=== PATIENT | female | born 1960 | race Caucasian/White ===

== ENCOUNTER 2020-06-21 10:15 | Outpatient (CLI) | payer OTHER, SELFPAY ==
--- NOTE | ~2020-06-21 | CT_ITS ---
EXAMINATION: CT abdomen pelvis wo con DATE: 06/21/2020 10:33 INDICATION: Hematuria. Left flank pain. Nausea. TECHNIQUE: Computed tomography (CT) of the abdomen and pelvis was performed without intravenous contr ast. Automated exposure control and iterative reconstruction technique were employed. The dose-length product was 424.62 mGy-cm. COMPARISON: None. FINDINGS: The visualized portions of the lung bases demonstrate mild atelectasis. Calcified bilateral lung nodules are consistent with old granulomatous disease. No pleural effusion. The heart size is n ormal. No pericardial effusion. The liver and spleen are normal. The gallbladder is absent. The pancr eas, adrenal glands, and kidneys are normal. There is no urolithiasis. There are no dilated loops of bowel. The appendix is normal. There is a supraumbilical ventral hernia containing fat. There are no pathologically enlarged lymph nodes. There is no free intraperitoneal fluid. There is a benign bone i sland in left ilium. There is thoracolumbar levoscoliosis. There is severe lumbar spondylosis. IMPRESSION: 1. Supraumbilical ventral hernia containing fat. Reviewed, dictated and finalized at location B.
== END 2020-06-21 10:16 | disposition home or self-care (01) ==
LOC: ANHIMG 10:16
PROVIDERS: PCP Nurse Practitioner Family; Visit Provider Nurse Practitioner Family
DX: R31.9 Hematuria, unspecified (principal); R10.9 Unspecified abdominal pain; R11.0 Nausea; K43.9 Ventral hernia without obstruction or gangrene
CPT/HCPCS: 74176

== ENCOUNTER 2024-01-16 15:33 | Emergency (ER) | payer OTHER, SELFPAY ==
--- NOTE | ~2024-01-16 | XR_ITS ---
EXAMINATION: XR lumbar spine 2-3V DATE: 01/16/2024 16:52 INDICATION: Low back injury. TECHNIQUE: 3 views of lumbar spine were obtained. COMPARISON: CT abdomen and pelvis 06/21/2020 FINDINGS: There is 16 degrees levoscoliosis of thoracolumbar spine. Vertebral body heights are normal . There is mildly decreased disc height at L3-L4 and L4-5 and moderately decreased disc height at L5- S1. There are endplate osteophytes at all levels. There is multilevel severe facet joint osteoarthrit is. IMPRESSION: 1. Moderate lumbar spondylosis. 2. Thoracolumbar levoscoliosis. Reviewed, dictated and finalized at location E.
--- NOTE | ~2024-01-16 | CT_ITS ---
EXAMINATION: CT cervical spine wo con DATE: 01/16/2024 16:44 INDICATION: Neck pain. Fall. TECHNIQUE: Computed tomography (CT) of the cervical spine was performed without intravenous contrast. Automated exposure control and iterative reconstruction technique were employed. The dose-length pro duct was 147.10 mGy-cm. COMPARISON: CT cervical spine 08/12/2005 FINDINGS: There is a small right mastoid effusion. There is 3 degrees levocurvature of cervical spine . There is kyphosis of cervical spine. Vertebral heights are normal. There is mildly decreased disc h eight at C4-C5 and moderately decreased disc height at C5-C6 and C6-C7. The following disc levels are specifically discussed: C2-C3: There is mild bilateral uncovertebral joint osteoarthritis. There is moderate bilateral facet joint osteoarthritis. There is no neural foraminal stenosis. There is no central canal stenosis. C3-C4: There is mild bilateral uncovertebral joint osteoarthritis. There is mild right and moderate l eft facet joint osteoarthritis. There is no neural foraminal stenosis. There is no central canal sten osis. C4-C5: There is mild bilateral uncovertebral joint osteoarthritis. There is mild bilateral facet join t osteoarthritis. There is no neural foraminal stenosis. There is no central canal stenosis. C5-C6: There is severe right and mild left uncovertebral joint osteoarthritis. There is mild bilatera l facet joint osteoarthritis. There is mild right neural foraminal stenosis. There is mild central ca nal stenosis. C6-C7: There is moderate and mild left uncovertebral joint osteoarthritis. There is moderate right an d mild left facet joint osteoarthritis. There is no neural foraminal stenosis. There is moderate cent ral canal stenosis. C7-T1: There is no uncovertebral joint osteoarthritis. There is moderate right and severe left facet joint osteoarthritis. There is mild bilateral neural foraminal stenosis. There is no central canal st enosis. IMPRESSION: 1. No fracture. 2. Moderate cervical spondylosis. Reviewed, dictated and finalized at location E.
[2024-01-16 15:31] VITALS: BP 155/88; PULSE 105; RESP 18; TEMP 36.6; O2SAT 100
--- NOTE | 2024-01-16 15:50 | ED.GENADULT ---
HPI - General Adult General Chief complaint: Urogenital-Female Stated complaint: uti Time Seen by Provider: 01/16/24 15:45 History of Present Illness HPI narrative: 63 YEARS OLD WHITE FEMALE CAME FROM HOME BY AMBULANCE COMPLAINING OF INCREASED FREQUENCY OF URINATION AND FOUL SMELL OF URINE OVER THE LAST 2 DAYS. PATIENT ALSO COMPLAINING OF NECK PAIN SINCE SHE HAD A FALL OUT OF THE AMBULANCE 1 WEEK AGO. ALSO LOWER BACK PAIN. SHE DENIES ANY FEVER, CHILLS, NAUSEA, VOMITING, ABDOMINAL PAIN OR CHEST PAIN OR SHORTNESS OF BREATH. Related Data Allergies Allergy/AdvReac Type Severity Reaction Status Date / Time codeine Allergy Unknown HIVES, Verified 10/26/18 13:11 VOMITING Review of Systems Review of Systems: All systems reviewed & are unremarkable except as noted in HPI and below Exam Narrative: GENERAL APPEARANCE: WELL-DEVELOPED, WELL-NOURISHED SKIN: NORMAL COLOR HEAD: NORMOCEPHALIC, NONTRAUMATIC, STATUS POST BRAIN SURGERY, SURGICAL SCAR OF THE SKULL IS CLEAN AND DRY EYES: CLEAR CONJUNCTIVA ENT: OROPHARYNX NORMAL, EARS NORMAL, NOSE NORMAL NECK: SUPPLE, SLIGHT DIFFUSE TENDERNESS OF THE NECK BILATERALLY MAINLY ON THE RIGHT SIDE, NO BRUISES OR SWELLING OR RASH CHEST AND RESPIRATORY: AIRWAY PATENT, NO RESPIRATORY DISTRESS, NO ACCESSORY MUSCLE USE HEART: REGULAR RATE/RHYTHM ABDOMEN: SOFT, NONTENDER, NO ORGANOMEGALY, QUIET BOWEL SOUNDS VASCULAR: NORMAL PERIPHERAL PULSES, NORMAL CAPILLARY REFILL. MUSCULOSKELETAL: NORMAL RANGE OF MOTION, NONTENDER BACK NEUROLOGIC: ALERT AND ORIENTED ?3, BUSINESS TECHNOLOGY ANALYST IS NORMAL TESTED, NO GROSS MOTOR DEFICIT Course Vital Signs Vital signs: Vital Signs Temperature 36.6 C 01/16/24 15:31 Pulse Rate 105 H 01/16/24 15:31 Respiratory Rate 18 01/16/24 15:31 Blood Pressure 155/88 H 01/16/24 15:31 Pulse Oximetry 100 01/16/24 15:31 Oxygen Delivery Room Air 01/16/24 15:31 Temperature 36.6 C 01/16/24 15:31 Pulse Rate 105 H 01/16/24 15:31 Respiratory Rate 18 01/16/24 15:31 Blood Pressure 155/88 H 01/16/24 15:31 Pulse Oximetry 100 01/16/24 15:31 Oxygen Delivery Room Air 01/16/24 15:31 Medical Decision Making [facility] Narrative Medical decision making narrative: PATIENT CAME TO EMERGENCY ROOM BY AMBULANCE FROM HOME COMPLAINING OF FREQUENT URINATION AND NECK PAIN. PHYSICAL EXAMINATION ABOVE DIFFERENTIAL DIAGNOSIS URINARY TRACT INFECTION, CERVICAL SPRAIN/STRAIN VERSUS FRACTURE, LOWER BACK CONTUSION VERSUS FRACTURE WORKUP TODAY SHOWED URINARY TRACT INFECTION, CERVICAL SPINE AND X-RAY LUMBAR SPINE SHOWED NO ACUTE ABNORMALITIES. PATIENT RECEIVED 1 TABLET OF CIPRO 500 MG P.O. PRIOR TO DISCHARGE, DISCHARGED ON CIPRO 500 B.I.D. FOR 7 DAYS. Differential Diagnosis Differential Diagnosis: ABOVE Vital Signs Vital Signs: Vital Signs Temperature 36.6 C 01/16/24 15:31 Pulse Rate 105 H 01/16/24 15:31 Respiratory Rate 18 01/16/24 15:31 Blood Pressure 155/88 H 01/16/24 15:31 Pulse Oximetry 100 01/16/24 15:31 Oxygen Delivery Room Air 01/16/24 15:31 Temperature 36.6 C 01/16/24 15:31 Pulse Rate 105 H 01/16/24 15:31 Respiratory Rate 18 01/16/24 15:31 Blood Pressure 155/88 H 01/16/24 15:31 Pulse Oximetry 100 01/16/24 15:31 Oxygen Delivery Room Air 01/16/24 15:31 Lab Data Labs: Lab Results 01/16/24 Range/Units 16:23 Urine Color Dark yellow (Yellow) Urine Appearance Turbid H (Clear) Urine pH 5.5 (5.0-9.0) Ur Specific [place] 1.033 (1.001-1.035) Urine Protein 2+ H (Negative) mg/dL Urine Glucose (UA) Negative (Negative) mg/dL Urine Ketones Trace H (Negative) mg/dL Ur Blood (Man) 3+ H (Negative) Urine Nitrate Neg
[2024-01-16 16:46] LABS: Appearance Urine Turbid (Clear); Bacteria Urine None Seen /hpf; Bilirubin Urine 2+ (Negative); Blood Urine 3+ (Negative); Color Urine Dark Yellow (Yellow); Glucose Urine UA Negative (Negative); Ketones Urine Trace mg/dL (Negative); Leukocyte Esterase Ur 2+ LEU/UL (Negative); Need Manual Microscopic Reviewed; Nitrate Urine Negative (Negative); Non Pathogenic Casts 0-2; Protein Urine 2+ mg/dL (Negative); RBC Urine >100 /hpf (0-2); Specific Grav Ur 1.033 (1.001-1.035); Squamous Epithelial Cell Urine None seen /hpf (Few); WBC Urine >100 /hpf; pH Urine 5.5 (5.0-9.0)
[2024-01-16 16:48] LABS: Add Urine Microscopic? YES
[2024-01-16] MEDS: CIPROFLOXACIN 500 MG TAB PO (18:28)
[2024-01-16 19:02] VITALS: BP 149/98; PULSE 100; RESP 17; O2SAT 100
== END 2024-01-17 03:12 | disposition home or self-care (01) ==
PROVIDERS: Emergency Provider Emergency Medicine; PCP Nurse Practitioner Family
DX: N39.0 Urinary tract infection, site not specified (principal); M47.812 Spondylosis without myelopathy or radiculopathy, cervical region; M47.816 Spondylosis without myelopathy or radiculopathy, lumbar region
CPT/HCPCS: 72100; 72125; 81001; 87077; 87086; 87088; 87186; 99284; A9270

== ENCOUNTER 2024-01-22 05:27 | Emergency (ER) | payer OTHER, SELFPAY ==
[2024-01-22] VITALS (11 sets, daily range): BP systolic 139–191; BP diastolic 90–113; PULSE 84–102; RESP 17–35; TEMP 36.4; O2SAT 94–98
--- NOTE | 2024-01-22 05:45 | ECG_ITS ---
Measurements Intervals [place] Rate: 103 P: 69 MA: 156 QRS: -30 QRSD: 98 T: 87 QT: 360 QTc: 473 Interpretive Statements SINUS TACHYCARDIA VENTRICULAR PREMATURE COMPLEX AND FREQUENT ATRIAL PREMATURE COMPLEXES LEFT VENTRICULAR HYPERTROPHY WITH ST-T CHANGE POOR R WAVE PROGRESSION, CONSIDER ANTERIOR INFARCT CONSIDER INFERIOR INFARCT, AGE INDETERMINATE ST-T WAVE ABNORMALITY IN HIGH LATERAL LEADS- CONSIDER ISCHEMIA BASELINE WANDER- I, II, III, AVF ABNORMAL ECG NO PREVIOUS ECG AVAILABLE FOR COMPARISON Electronically Signed On 01-22-2024 8:15:42 CDT by Leonel Estrada D.O.
--- NOTE | 2024-01-22 05:45 | ED.GENADULT ---
HPI - General Adult General Chief complaint: Nausea/Vomiting/Diarrhea <Alexis Bonds MD - Last Filed: 01/31/24 07:38> Stated complaint: N/V <Alexis Bonds MD - Last Filed: 01/31/24 07:38> Time Seen by Provider: 01/22/24 05:35 <Alexis Bonds MD - Last Filed: 01/31/24 07:38> History of Present Illness HPI narrative: Patient is a 63-year-old female who presents to the emergency department this morning complaining of nausea and vomiting. Patient states symptoms started approximately 2 hours prior to arrival Around 4:30 a.m. this morning. Denies any bloody or bilious emesis. Patient admits to mild abdominal cramping And diarrhea but denies any constipation, melena or hematochezia. was currently present at bedside states that yesterday he had to change her 6 times, as she continued to have loose stools. stools are not completely liquid, admits that she does have some formed stools mixed with the watery stool. Patient went to bed with no nausea or vomiting and woke up around 4:30 a.m. with multiple vomiting episodes. Has been admits that he has been sick with some upper respiratory virus but he denies any similar symptoms at home including diarrhea. Diarrhea started approximately 2-3 days ago. Has been also states that the patient has not had an appetite for the past 2 days and has not had much to eat. Patient denies any fevers or chills at home. She has got any chest pain or shortness of breath. There are no other modifying, alleviating, or precipitating factors at this time. <Alexis Bonds MD - Last Filed: 01/31/24 07:38> Related Data Home medications: Home Medications Medication Instructions Recorded Confirmed acetaminophen 325 mg tablet 650 mg PO Q4H PRN Pain (Scale 12/19/23 12/19/23 Score 1-3) albuterol sulfate 90 mcg/actuation 2 puff inhalation Q6H PRN Wheezing 12/19/23 12/19/23 aerosol inhaler apixaban 5 mg tablet 5 mg PO BID 12/19/23 12/19/23 aspirin 81 mg tablet,delayed 81 mg PO DAILY 12/19/23 12/19/23 release atorvastatin 40 mg tablet 40 mg PO HS 12/19/23 12/19/23 calcium carbonate 600 mg-vitamin 1 tablet PO BID 12/19/23 12/19/23 D3 10 mcg (400 unit) tablet (Calcium with Vitamin D) cholecalciferol (vitamin D3) 25 25 mcg PO TID 12/19/23 12/19/23 mcg (1,000 unit) tablet ferrous sulfate 325 mg (65 mg 325 mg PO QACBREAK 12/19/23 12/19/23 iron) tablet gabapentin 250 mg/5 mL oral 100 mg PO TID 12/19/23 12/19/23 solution megestrol 400 mg/10 mL (40 mg/mL) 200 mg PO DAILY 12/19/23 12/19/23 oral suspension melatonin 3 mg tablet 3 mg PO HS 12/19/23 12/19/23 metformin 500 mg tablet 500 mg PO DAILY 12/19/23 12/19/23 metoprolol succinate 25 mg 25 mg PO DAILY 12/19/23 12/19/23 tablet,extended release 24 hr omeprazole 20 mg capsule,delayed 20 mg PO DAILY 12/19/23 12/19/23 release oxycodone 5 mg capsule 5 mg PO Q6H PRN Pain (Scale Score 12/19/23 12/19/23 4-6) polyethylene glycol 3350 17 gram 17 g PO DAILY 12/19/23 12/19/23 oral powder packet sennosides 8.6 mg tablet 8.6 mg PO DAILY 12/19/23 12/19/23 <Alexis Bonds MD - Last Filed: 01/31/24 07:38> Allergies/adverse reactions: Allergies Allergy/AdvReac Type Severity Reaction Status Date / Time nitrofurantoin Allergy Rash Verified 12/19/23 13:21 [From Macrobid] strawberry Allergy Hives Verified 12/20/23 11:44 codeine AdvReac Nausea and Verified 12/19/23 13:21 Vomiting Sulfa (Sulfonamide AdvReac Other Verified 12/19/23 13:21 Antibiotics) <Alexis Bonds MD - Last Filed: 01/31/24 07:38> Review of Systems Review of Systems: All systems are reviewed and are negative unless stated otherwise in the HPI. <Alexis Bonds MD - Last Filed: 01/31/24 07:38> PMFSH Social History Social History: Social History Smoking status: Never smoker Second hand tobacco smoke exposure: No
[2024-01-22] MEDS: ONDANSETRON INJ 4 MG/2 ML VIAL IV PUSH ×2 (05:51→07:27)
--- NOTE | 2024-01-22 06:10 | PC.NURSE ---
Pt vomiting again. ERP notified and reglan ordered.
[2024-01-22 06:16] LABS: Basophils Absolute Auto 0.1 K/mm3 (0.0-0.1); Basophils Percent Auto 0.9 % (0.2-1.2); Eosinophils Absolute Auto 0.3 K/mm3 (0-0.3); Hematocrit 40.7 % (37.0-47.0); Hemoglobin 12.7 g/dL (12.0-15.0); Immature Granulocyte Absolute 0.02 K/mm3 (0.00-0.031); Immature Granulocyte Percent A 0.3 % (0-0.5); Lymphocytes Absolute Auto 2.37 K/mm3 (0.9-3.2); Lymphocytes Percent Auto 33.8 % (18.3-44.2); Mean Corpuscular HGB Conc 31.2 g/dl (32-36); Mean Corpuscular Volume 86.6 fl (80-100); Mean Platelet Volume 12.9 fl (7.4-10.4); Monocytes Absolute Auto 0.6 K/mm3 (0.1-0.6); Monocytes Percent Auto 8.3 % (2.6-8.5); Neutrophils Absolute Auto 3.7 K/mm3 (1.3-6.7); Neutrophils Percent Auto 52.7 % (45.5-73.1); Platelet Count Result 195 k/mm3 (150-375); Red Cell Distribution Width 13.8 % (11.5-14.5)
[2024-01-22] MEDS: METOCLOPRAMIDE HCL INJ 10 MG/2 ML VIAL IV PUSH (06:24)
[2024-01-22 06:25] LABS: Alanine Aminotransferase 42 U/L (6-35); Albumin Level 3.5 g/dL (3.5-5.1); Alkaline Phosphatase 110 U/L (38-126); Anion Gap 7 mmol/L (8-16); Aspartate Amino Transferase 40 U/L (14-36); Bilirubin,Total 0.5 mg/dL (0.2-1.3); Blood Urea Nitrogen 15 mg/dL (7-17); Calcium 9.7 mg/dL (8.4-10.2); Carbon Dioxide 21 mmol/L (22-30); Chloride 111 mmol/L (98-107); Estimated CRCL calculation 71 ml/min; Estimated Glomerular Filt Rate > 60; Glucose 122 mg/dL (65-110); Lipase 155 U/L (23-300); Potassium 2.8 mmol/L (3.4-5.0); Sodium 139 mmol/L (137-145)
[2024-01-22 07:06] LABS: Influenza A QL RT-PCR Negative (Negative); Influenza B QL RT-PCR Negative (Negative); RSV RNA, RT-PCR Negative (Negative); SARS-CoV-2 RNA PCR Negative (Negative)
--- NOTE | 2024-01-22 07:12 | PC.NURSE ---
Bedside report to ELVER Cool. Still awaiting K+ from pharmacy. Concerned with giving pt PO K d/t continued vomiting despite antiemetics. Aware of need for urine sample but pt has had two attempts on bedpan with contaminated stool specimen. Erp notified.
[2024-01-22] MEDS: SODIUM CHLORIDE 0.9% IV 1,000 ML 999 ML IV CONT (07:28)
[2024-01-22] MEDS: KCL 20 MEQ/SW 100 ML 100 ML 50 MEQ IVPB (07:28)
--- NOTE | 2024-01-22 07:42 | PC.NURSE ---
notified pt vomiting, unable to take PO Potassium.
[2024-01-22 07:49] LABS: Magnesium 1.5 mg/dL (1.6-2.3)
[2024-01-22 08:40] LABS: Bacteria Urine None Seen /hpf; Non Pathogenic Casts 0-2; RBC Urine >100 /hpf (0-2); Squamous Epithelial Cell Urine None Seen /hpf (Few); WBC Urine 0-5 /hpf (0-3)
[2024-01-22 08:46] LABS: Appearance Urine Clear (Clear); Bilirubin Urine Negative (Negative); Blood Urine 3+ (Negative); Color Urine Orange (Yellow); Glucose Urine UA Negative (Negative); Ketones Urine Trace mg/dL (Negative); Leukocyte Esterase Ur Negative LEU/UL (Negative); Nitrate Urine Negative (Negative); Protein Urine Negative (Negative); Specific Grav Ur 1.011 (1.001-1.035); Urobilinogen Urine 0.2 mg/dL (<2.0); pH Urine 5.5 (5.0-9.0)
[2024-01-22 08:47] LABS: Add Urine Microscopic? YES
[2024-01-22] MEDS: POTASSIUM CHLORIDE 20 MEQ PACKET (FOR LIQUID) 40 MEQ PO (09:00)
== END 2024-01-22 10:36 | disposition home or self-care (01) ==
PROVIDERS: Emergency Provider Emergency Medicine; PCP Nurse Practitioner Family
DX: K52.9 Noninfective gastroenteritis and colitis, unspecified (principal); E87.6 Hypokalemia; Z20.822 Contact with and (suspected) exposure to COVID-19; Z79.84 Long term (current) use of oral hypoglycemic drugs; R00.0 Tachycardia, unspecified; I49.3 Ventricular premature depolarization; I49.1 Atrial premature depolarization; I51.7 Cardiomegaly; R94.31 Abnormal electrocardiogram [ECG] [EKG]
CPT/HCPCS: 36415; 80053; 83605; 83690; 83735; 85025; 87637; 93005; 96365; 96366; 96375; 96376; 99284; A9270; J2405; J2765; J3480; J7030

== ENCOUNTER 2024-02-21 22:01 | Emergency (ER) | payer OTHER, SELFPAY ==
--- NOTE | ~2024-02-21 | XR_ITS ---
EXAMINATION: XR chest 1V portable DATE: 02/21/2024 22:48 INDICATION: Chest pain. Shortness of breath. TECHNIQUE: A single frontal view of the chest was obtained. COMPARISON: None. FINDINGS: There are airspace opacities in right lower lung zone. No pleural effusion or pneumothorax. The heart size is normal. IMPRESSION: 1. Airspace opacities in right lower lung zone, consistent with atelectasis versus pneumonia. Reviewed, dictated and finalized at location E. IMPRESSION: 1. Airspace opacities in right lower lung zone, consistent with atelectasis moriah tejas pneumonia.
[2024-02-21 21:56] VITALS: BP 137/96; PULSE 118; RESP 23; TEMP 36.2; O2SAT 93
--- NOTE | 2024-02-21 22:13 | ECG_ITS ---
SEE SCANNED COPY FOR CONFIRMED REPORT. MTDD
[2024-02-21 22:16] VITALS: PULSE 90
[2024-02-21 22:58] VITALS: PULSE 78; RESP 19
[2024-02-21] MEDS: diphenhydrAMINE HCl INJ 50 MG/ML VIAL 25 MG IV PUSH (23:19)
[2024-02-21] MEDS: METOCLOPRAMIDE HCL INJ 10 MG/2 ML VIAL IV PUSH (23:19)
[2024-02-21 23:45] LABS: Basophils Absolute Auto 0.1 K/mm3 (0.0-0.1); Basophils Percent Auto 0.7 % (0.2-1.2); Eosinophils Absolute Auto 0.1 K/mm3 (0-0.3); Eosinophils Percent Auto 1.2 % (0-4.4); Hematocrit 43.8 % (37.0-47.0); Hemoglobin 14.1 g/dL (12.0-15.0); Immature Granulocyte Absolute 0.02 K/mm3 (0.00-0.031); Immature Granulocyte Percent A 0.3 % (0-0.5); Lymphocytes Percent Auto 22.3 % (18.3-44.2); Mean Corpuscular HGB Conc 32.2 g/dl (32-36); Mean Corpuscular Volume 83.9 fl (80-100); Mean Platelet Volume 12.1 fl (7.4-10.4); Monocytes Absolute Auto 0.4 K/mm3 (0.1-0.6); Monocytes Percent Auto 5.2 % (2.6-8.5); Neutrophils Absolute Auto 4.7 K/mm3 (1.3-6.7); Neutrophils Percent Auto 70.3 % (45.5-73.1); Platelet Count Result 233 k/mm3 (150-375); Red Blood Count 5.22 M/mm3 (4.2-5.4); Red Cell Distribution Width 14.7 % (11.5-14.5); White Blood Count 6.7 K/mm3 (4.5-10.0)
--- NOTE | 2024-02-21 23:49 | PC.NURSE ---
assumed care of pt from Debi RAYA at this time. pt resting in bed with by side. this rn at bedside to start medications.
[2024-02-21] MEDS: PANTOPRAZOLE SODIUM IV 40 MG VIAL IV PUSH (23:55)
[2024-02-21 23:57] VITALS: O2SAT 88; O2SAT 98
--- NOTE | 2024-02-21 23:57 | PC.NURSE ---
Pt satting 88% on RA when this RN entered room. This RN placed pt on 2L NC. Pt now satting 99%. EDP made aware. ABX and protonix given at this time.
[2024-02-21 23:59] LABS: INR 1.5; Prothrombin Time 18.6 Seconds (11.1-14.7)
[2024-02-22] LABS: Partial Thromboplastin Time 32.9 Seconds (22.3-36.8)
[2024-02-22 00:01] LABS: Alanine Aminotransferase 12 U/L (6-35); Albumin Level 3.8 g/dL (3.5-5.1); Alkaline Phosphatase 85 U/L (38-126); Anion Gap 9 mmol/L (4-12); Aspartate Amino Transferase 22 U/L (14-36); Bilirubin,Total 0.7 mg/dL (0.2-1.3); Blood Urea Nitrogen 11 mg/dL (7-17); Calcium 9.8 mg/dL (8.4-10.2); Carbon Dioxide 28 mmol/L (22-30); Chloride 104 mmol/L (98-107); Estimated CRCL calculation 83 ml/min; Estimated Glomerular Filt Rate > 60; Glucose 167 mg/dL (65-110); Lipase 89 U/L (23-300); Potassium 2.6 mmol/L (3.4-5.0); Sodium 141 mmol/L (137-145)
[2024-02-22 00:08] LABS: Troponin I < 0.012 ng/mL (0.000-0.034)
[2024-02-22] MEDS: POTASSIUM CHLORIDE INJ 40 MEQ in SODIUM CHLORIDE 0.9% IV 500 ML 130 MEQ IVPB (00:15)
[2024-02-22 00:18] VITALS: BP 138/87; PULSE 84; RESP 19; O2SAT 99
[2024-02-22 01:01] VITALS: BP 149/88; PULSE 82; RESP 19; O2SAT 100
[2024-02-22] MEDS: POTASSIUM CHLORIDE 20 MEQ ER TABLET 40 MEQ PO (01:12)
[2024-02-22 01:16] VITALS: BP 157/96; PULSE 94; RESP 13; O2SAT 99
--- NOTE | 2024-02-22 01:30 | PC.NURSE ---
gurdeep contacted to draw pt 3 hour troponin at this time.
[2024-02-22] MEDS: LOPERAMIDE HCL 2 MG CAPSULE 4 MG PO (02:14)
[2024-02-22] MEDS: SODIUM CHLORIDE 0.9% IV 250 ML 999 ML IV CONT (02:24)
[2024-02-22 02:58] LABS: Troponin I < 0.012 ng/mL (0.000-0.034)
[2024-02-22 03:10] VITALS: BP 161/96; PULSE 77; RESP 14; O2SAT 100
[2024-02-22 03:16] VITALS: BP 152/90; PULSE 96; RESP 16; O2SAT 100
[2024-02-22 03:20] VITALS: BP 152/90; PULSE 77; RESP 16; O2SAT 94
--- NOTE | 2024-02-22 03:30 | ED.NAVMDI ---
HPI - Nausea/Vomiting/Diarrhea General Chief complaint: Nausea/Vomiting/Diarrhea Stated complaint: N/V X 30 MINUTES Time Seen by Provider: 02/21/24 22:14 History of Present Illness HPI Narrative: Patient reporting nausea vomiting twice at home, she had eaten dinner which was some sausages, lay down to sleep, and then woke up with nausea vomiting, some epigastric pain, and starting to develop a headache. Has a history of stroke with left-sided deficits but no new focal numbness or weakness. Related Data Allergies Allergy/AdvReac Type Severity Reaction Status Date / Time codeine Allergy Unknown HIVES, Verified 02/21/24 22:13 VOMITING Review of Systems Review of Systems: CONST: No fever. HEENT: No sore throat C/V: No chest pain RESP: No cough GI: Reports abdominal pain, nausea, vomiting[, diarrhea] : No dysuria. M/S: No joint pain. SKIN: No rash. NEURO: Headache PSYCH: [No depression] Exam Narrative: EXAMINATION OF ORGAN SYSTEMS/BODY AREAS: Constitutional: Vital signs per nursing GENERAL: Actively retching HEAD: Normal with no signs of head trauma. EYES: EOMI, conjunctiva normal ENT: Hearing grossly intact LUNGS: Nonlabored breathing. HEART: [Regular rate and rhythm] ABD: [Soft], [nontender to palpation] EXT: Normal range of motion SKIN: [No rashes or lesions.] NEURO: [Alert. Left-sided weakness.] PSYCH: Normal affect Course Vital Signs Vital signs: Vital Signs Temperature 97.1 F L 02/21/24 21:56 Pulse Rate 118 H 02/21/24 21:56 Respiratory Rate 23 H 02/21/24 21:56 Blood Pressure 137/96 H 02/21/24 21:56 Pulse Oximetry 93 02/21/24 21:56 Oxygen Delivery Room Air 02/21/24 21:56 Temperature 97.1 F L 02/21/24 21:56 Pulse Rate 77 02/22/24 03:20 Respiratory Rate 16 02/22/24 03:20 Blood Pressure 152/90 H 02/22/24 03:20 Pulse Oximetry 94 02/22/24 03:20 Oxygen Delivery Nasal Cannula 02/21/24 23:57 Oxygen Flow Rate 2 02/21/24 23:57 MDM - Nausea/Vomiting/Diarrhea MDM Narrative Medical decision making narrative: CC very old female presents with nausea vomiting, diarrhea, no abdominal pain of the some mild epigastric discomfort, on exam she is actively retching, abdomen soft nontender, she does have left-sided weakness but this is chronic. She is given nausea medications, EKG here shows sinus rhythm rate 98, left bundle-branch block left axis, NE 145, QRS 145, QTC 467, no obvious ST elevations or depressions Chest x-ray showing possible pneumonia, she is started on antibiotics, cardiac workup is normal including troponins, potassium returned at 2.6, she is immediately repleted with IV and p.o. and now she is feeling much better, she is tolerating p.o. without issues, she is agreeable to outpatient follow-up, I will refill the potassium and have let him know that they need to see the doctor in the next few days for recheck, and come back to hospital she feels worse. Patient agreeable to this plan. at bedside. Differential Diagnosis Differential diagnosis: Likely food poisoning, gastroenteritis, dehydration and other (Gastritis, GERD, ACS, pancreatitis) Lab Data 02/21/24 23:00 02/21/24 23:00 Labs: Lab Results 02/21/24 02/21/24 02/22/24 Range/Units 23:00 23:37 02:04 WBC 6.7 (4.5-10.0) K/mm3 RBC 5.22 (4.2-5.4) M/mm3 Hgb 14.1 (12.0-15.0) g/dL Hct 43.8 (37.0-47.0) % MCV 83.9 (80-100) fl MCH 27.0 (26-34) pg MCHC 32.2 (32-36) g/dl RDW 14.7 H (11.5-14.5) % Plt Count 233 (150-375) k/mm3 MPV 12.1 H (7.4-10.4) fl Immature Gran % (Auto) 0.3 (0-0.5) % Neut % (Auto) 70.3 (45.5-73.1) % Lymph % (Auto) 22.3 (18.3-44.2) % Graves % (Auto) 5.2 (2.6-8.5) % Eos % (Auto) 1.2 (0-4.4) % Baso % (Auto) 0.7 (0.2-1.2) % Lymph # (Auto) 1.50 (0.9-3.2) K/mm3 Graves # (Auto) 0.4 (0.1-0.6) K/mm3 Eos # (Auto) 0.1 (0-0.3) K/mm3 Baso # (Auto) 0.1 (0.0
== END 2024-02-22 04:13 | disposition home or self-care (01) ==
PROVIDERS: Emergency Provider Emergency Medicine; PCP Nurse Practitioner Family
DX: J18.9 Pneumonia, unspecified organism (principal); R11.2 Nausea with vomiting, unspecified; E87.6 Hypokalemia; R10.13 Epigastric pain
CPT/HCPCS: 36415; 71045; 80053; 83605; 83690; 84484; 85025; 85610; 85730; 87040; 93005; 96365; 96366; 96367; 96375; 99284; A9270; C9113; J0696; J1200; J2765; J3480; J7040; J7050

== ENCOUNTER 2024-03-12 23:37 | Emergency (ER) | payer OTHER, SELFPAY ==
--- NOTE | ~2024-03-12 | XR_ITS ---
AP and oblique views of the left ribs, and AP view of the chest Clinical History: Pain Findings: No rib fracture is seen. Osseous alignment is anatomic. Lungs are clear, without focal cons olidation or pleural effusion. Cardiomediastinal contour is within normal limits. Soft tissues are un remarkable. Impression: No rib fracture is seen. Clear lungs. Reviewed, dictated and finalized at location . Impression: No rib fracture is seen. Clear lungs.
--- NOTE | ~2024-03-12 | XR_ITS ---
Left Shoulder Technique: AP and scapular Y views were obtained. Clinical History: Pain Findings: No fracture or dislocation is seen. Osseous alignment is anatomic. The glenohumeral and acr omioclavicular joint spaces are preserved. Soft tissues are unremarkable. Impression: Unremarkable left shoulder radiographs. Reviewed, dictated and finalized at [facility]. Impression: Unremarkable left shoulder radiographs.
--- NOTE | ~2024-03-12 | XR_ITS ---
AP view of the pelvis and AP and lateral views of the left hip Clinical history: Pain Findings: No acute fracture or dislocation is seen. Osseous alignment is anatomic. Bilateral hip and SI joint spaces are preserved. Soft tissues are unremarkable. Degenerative spondylosis of the lumbar spine noted. Impression: Degenerative spondylosis of the lower lumbar spine noted. No other significant findings. Reviewed, dictated and finalized at location . Impression: Degenerative spondylosis of the lower lumbar spine noted. No other significant findings.
[2024-03-12 23:35] VITALS: BP 148/100; PULSE 76; RESP 18; TEMP 36.6; O2SAT 97
--- NOTE | 2024-03-13 00:56 | ED.GENADULT ---
HPI - General Adult General Chief complaint: Extremity Injury, Upper Stated complaint: arm pain Time Seen by Provider: 03/12/24 23:47 History of Present Illness HPI narrative: That patient 63-year-old female who presents emergency department with chief complaint of chest wall pain the patient reports that she was being lifted up in bed by her the patient states that she felt pulling in the left side of her chest and decided to come into the emergency department patient took some Tylenol prior to arrival and states the pain is doing much better. Patient also reports he has pain in the left hip area and reports pain in the left shoulder. Related Data Home Medications Medication Instructions Recorded Confirmed acetaminophen 325 mg tablet 650 mg PO Q4H PRN Pain (Scale 12/19/23 12/19/23 Score 1-3) albuterol sulfate 90 mcg/actuation 2 puff inhalation Q6H PRN Wheezing 12/19/23 12/19/23 aerosol inhaler apixaban 5 mg tablet 5 mg PO BID 12/19/23 12/19/23 aspirin 81 mg tablet,delayed 81 mg PO DAILY 12/19/23 12/19/23 release atorvastatin 40 mg tablet 40 mg PO HS 12/19/23 12/19/23 calcium carbonate 600 mg-vitamin 1 tablet PO BID 12/19/23 12/19/23 D3 10 mcg (400 unit) tablet (Calcium with Vitamin D) cholecalciferol (vitamin D3) 25 25 mcg PO TID 12/19/23 12/19/23 mcg (1,000 unit) tablet ferrous sulfate 325 mg (65 mg 325 mg PO QACBREAK 12/19/23 12/19/23 iron) tablet gabapentin 250 mg/5 mL oral 100 mg PO TID 12/19/23 12/19/23 solution megestrol 400 mg/10 mL (40 mg/mL) 200 mg PO DAILY 12/19/23 12/19/23 oral suspension melatonin 3 mg tablet 3 mg PO HS 12/19/23 12/19/23 metformin 500 mg tablet 500 mg PO DAILY 12/19/23 12/19/23 metoprolol succinate 25 mg 25 mg PO DAILY 12/19/23 12/19/23 tablet,extended release 24 hr omeprazole 20 mg capsule,delayed 20 mg PO DAILY 12/19/23 12/19/23 release oxycodone 5 mg capsule 5 mg PO Q6H PRN Pain (Scale Score 12/19/23 12/19/23 4-6) polyethylene glycol 3350 17 gram 17 g PO DAILY 12/19/23 12/19/23 oral powder packet sennosides 8.6 mg tablet 8.6 mg PO DAILY 12/19/23 12/19/23 Allergies Allergy/AdvReac Type Severity Reaction Status Date / Time codeine Allergy Unknown HIVES, Verified 03/06/24 15:53 VOMITING nitrofurantoin Allergy Rash Verified 03/06/24 15:53 [From Macrobid] strawberry Allergy Hives Verified 03/06/24 15:53 Sulfa (Sulfonamide AdvReac Other Verified 03/06/24 15:53 Antibiotics) Review of Systems Review of Systems: A 10 system review of systems was completed on the patient and is negative except for what is stated in the HPI. Nursing and ancillary documentation was reviewed. [facility] Social History Social History Smoking status: Never smoker Second hand tobacco smoke exposure: No Alcohol intake: never Substance use: never Spiritual care concerns: No Exam Narrative: GENERAL: Well-appearing, well-nourished, and in no acute distress. HEAD: Normocephalic, atraumatic. EYES: PERRLA and EOMI. ENT: Nares clear, no rhinorrhea or epistaxis. Mucous membranes moist. NECK: Supple. CHEST: Clear to auscultation. No respiratory distress. HEART: Regular rate and rhythm. No murmur heard. Normal peripheral pulses. ABDOMEN: Soft, nontender, nondistended, normal active bowel sounds. EXTREMITIES: Normal range of motion. No edema. SKIN: Warm, dry, no rash. There is an area of redness present in the left gluteal area no crepitance no necrotic tissue NEURO: No new focal deficits chronic weakness in the left upper extremity and left lower extremity. Alert and oriented x3. PSYCH: Normal mood and affect. Course Vital Signs Vital signs: Vital Signs Temperature 36.6 C 03/12/24 23:35 Pulse Rate 76 03/12/24 23:35 Respiratory Rate 18 03/12/24 23:35 Blood Pressure 148/100 H 03/12/24 23:35 Pulse Oximetry 97 03/12/24 23:35 Oxygen Delivery Room Air
--- NOTE | 2024-03-13 01:10 | PC.NURSE ---
Per EDP lipsmeyer, barrier cream applied to pts buttocks.
[2024-03-13 01:11] VITALS: BP 144/89; PULSE 76; RESP 16
[2024-03-13 03:06] VITALS: BP 128/86; PULSE 78; RESP 14
[2024-03-13 04:15] VITALS: BP 123/79; PULSE 79; RESP 14; O2SAT 97
== END 2024-03-13 04:39 | disposition home or self-care (01) ==
PROVIDERS: Emergency Provider Emergency Medicine; PCP Nurse Practitioner Family
DX: S29.9XXA Unspecified injury of thorax, initial encounter (principal); L30.9 Dermatitis, unspecified; I48.91 Unspecified atrial fibrillation; E78.00 Pure hypercholesterolemia, unspecified; Z86.73 Personal history of transient ischemic attack (TIA), and cerebral infarction without residual deficits; Z85.44 Personal history of malignant neoplasm of other female genital organs; Z79.01 Long term (current) use of anticoagulants; Z79.82 Long term (current) use of aspirin; Z79.84 Long term (current) use of oral hypoglycemic drugs; Z79.899 Other long term (current) drug therapy; X50.9XXA Other and unspecified overexertion or strenuous movements or postures, initial encounter
CPT/HCPCS: 71101; 73030; 73502; 99284

== ENCOUNTER 2024-03-20 19:32 | Emergency (ER) | payer OTHER, SELFPAY ==
[2024-03-20] VITALS (8 sets, daily range): BP systolic 135–153; BP diastolic 80–95; PULSE 84–94; RESP 12–20; TEMP 36.4; O2SAT 95–99
--- NOTE | ~2024-03-20 | CT_ITS ---
EXAMINATION: CT abdomen pelvis wo con DATE: 03/20/2024 22:31 INDICATION: stone TECHNIQUE: Computed tomography (CT) of the abdomen and pelvis was performed without intravenous contr ast. Automated exposure control and iterative reconstruction technique were employed. The dose-length product was 836.16 mGy-cm. COMPARISON: None. FINDINGS: Lower thorax: Coronary artery calcifications. Calcified mediastinal nodes. Liver: Normal. Biliary/Gallbladder: Gallbladder is absent. No bile duct dilation. Pancreas: Moderate atrophy. Spleen: Normal. Adrenals:No mass. Kidneys: No suspicious mass, obstructing stone, or hydronephrosis. GI tract: No small or large bowel dilation. Normal appendix. Mesentery/Peritoneum: No ascites or free air. Enlarged right upper quadrant and luanne hepatic lymph n odes. Retroperitoneum: No mass. Atherosclerotic abdominal aortic and/or arterial calcifications. Pelvis: Partially distended urinary bladder. Fibroid uterus. Bilateral ovaries not confidently identi fied. Hydronephrosis. Punctate nonobstructing right midpole calcification. Soft Tissues: Small fat-containing uncomplicated appearing upper abdominal midline hernia. Bones: No acute osseous finding. IMPRESSION: Luanne hepatic and right upper quadrant mesentery lymphadenopathy. Otherwise, no acute abdominopelvic process detected. Specifically, there is no CT evidence of obstructive uropathy. Reviewed, dictated and finalized at location K.
--- NOTE | ~2024-03-20 | XR_ITS ---
EXAM: XR shoulder LT min 2V DATE: 03/20/2024 21:02 HISTORY: pain left side paraylized . COMPARISON: 03/13/2024. FINDINGS: Decreased mineralization. No fracture or dislocation. No lytic or blastic lesion. Mild AC joint and glenohumeral joint degenerative change. Left rotator cuff calcific tendinitis No erosion or periosteal change. Soft tissues within normal limits. IMPRESSION: No acute osseous finding in the left shoulder. Reviewed, dictated and finalized at location K.
--- NOTE | 2024-03-20 19:52 | ECG_ITS ---
SEE SCANNED COPY FOR CONFIRMED REPORT MTDD
[2024-03-20 20:17] LABS: Basophils Absolute Auto 0.1 K/mm3 (0.0-0.1); Basophils Percent Auto 0.6 % (0.2-1.2); Eosinophils Absolute Auto 0.3 K/mm3 (0-0.3); Hematocrit 43.1 % (37.0-47.0); Hemoglobin 14.2 g/dL (12.0-15.0); Immature Granulocyte Absolute 0.03 K/mm3 (0.00-0.031); Immature Granulocyte Percent A 0.3 % (0-0.5); Lymphocytes Absolute Auto 2.45 K/mm3 (0.9-3.2); Lymphocytes Percent Auto 27.4 % (18.3-44.2); Mean Corpuscular HGB Conc 32.9 g/dl (32-36); Mean Corpuscular Hemoglobin 27.2 pg (26-34); Mean Corpuscular Volume 82.4 fl (80-100); Mean Platelet Volume 11.5 fl (7.4-10.4); Monocytes Absolute Auto 0.6 K/mm3 (0.1-0.6); Monocytes Percent Auto 6.6 % (2.6-8.5); Neutrophils Absolute Auto 5.6 K/mm3 (1.3-6.7); Neutrophils Percent Auto 62.1 % (45.5-73.1); Platelet Count Result 288 k/mm3 (150-375); Red Blood Count 5.23 M/mm3 (4.2-5.4); Red Cell Distribution Width 15.5 % (11.5-14.5); White Blood Count 8.9 K/mm3 (4.5-10.0)
[2024-03-20 20:27] LABS: INR 1.1; Prothrombin Time 14.5 Seconds (11.1-14.7)
[2024-03-20 20:28] LABS: Partial Thromboplastin Time 32.8 Seconds (22.3-36.8)
[2024-03-20 20:29] LABS: Lactic Acid Reflex 1.8 mmol/L (0.7-2.0)
[2024-03-20 20:30] LABS: Alanine Aminotransferase 13 U/L (6-35); Albumin Level 3.9 g/dL (3.5-5.1); Alkaline Phosphatase 81 U/L (38-126); Anion Gap 7 mmol/L (4-12); Aspartate Amino Transferase 23 U/L (14-36); Bilirubin,Total 0.7 mg/dL (0.2-1.3); Blood Urea Nitrogen 13 mg/dL (7-17); Calcium 9.9 mg/dL (8.4-10.2); Carbon Dioxide 28 mmol/L (22-30); Chloride 107 mmol/L (98-107); Estimated CRCL calculation 86 ml/min; Estimated Glomerular Filt Rate > 60; Glucose 112 mg/dL (65-110); Lipase 125 U/L (23-300); Potassium 3.3 mmol/L (3.4-5.0); Sodium 142 mmol/L (137-145)
[2024-03-20 20:42] LABS: Troponin I < 0.012 ng/mL (0.000-0.034)
--- NOTE | 2024-03-20 20:46 | ED.FEMALEGU ---
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 Patient states she has associated foul-smelling urine. States this morning while she was lying in bed she began having pain to her chest and left shoulder that extended into her back and into the left part of her chest. She states the pain has been constant and is worse when she moves her shoulder. She denies injury trauma this area. She is reporting some nausea but denies vomiting, diaphoresis, shortness of breath, focal abdominal pain, diarrhea, fever. Related Data Home Medications Medication Instructions Recorded Confirmed acetaminophen 325 mg tablet 650 mg PO Q4H PRN Pain (Scale 12/19/23 12/19/23 Score 1-3) albuterol sulfate 90 mcg/actuation 2 puff inhalation Q6H PRN Wheezing 12/19/23 12/19/23 aerosol inhaler apixaban 5 mg tablet 5 mg PO BID 12/19/23 12/19/23 aspirin 81 mg tablet,delayed 81 mg PO DAILY 12/19/23 12/19/23 release atorvastatin 40 mg tablet 40 mg PO HS 12/19/23 12/19/23 calcium carbonate 600 mg-vitamin 1 tablet PO BID 12/19/23 12/19/23 D3 10 mcg (400 unit) tablet (Calcium with Vitamin D) cholecalciferol (vitamin D3) 25 25 mcg PO TID 12/19/23 12/19/23 mcg (1,000 unit) tablet ferrous sulfate 325 mg (65 mg 325 mg PO QACBREAK 12/19/23 12/19/23 iron) tablet gabapentin 250 mg/5 mL oral 100 mg PO TID 12/19/23 12/19/23 solution megestrol 400 mg/10 mL (40 mg/mL) 200 mg PO DAILY 12/19/23 12/19/23 oral suspension melatonin 3 mg tablet 3 mg PO HS 12/19/23 12/19/23 metformin 500 mg tablet 500 mg PO DAILY 12/19/23 12/19/23 metoprolol succinate 25 mg 25 mg PO DAILY 12/19/23 12/19/23 tablet,extended release 24 hr omeprazole 20 mg capsule,delayed 20 mg PO DAILY 12/19/23 12/19/23 release oxycodone 5 mg capsule 5 mg PO Q6H PRN Pain (Scale Score 12/19/23 12/19/23 4-6) polyethylene glycol 3350 17 gram 17 g PO DAILY 12/19/23 12/19/23 oral powder packet sennosides 8.6 mg tablet 8.6 mg PO DAILY 12/19/23 12/19/23 Allergies Allergy/AdvReac Type Severity Reaction Status Date / Time codeine Allergy Unknown HIVES, Verified 03/06/24 15:53 VOMITING nitrofurantoin Allergy Rash Verified 03/06/24 15:53 [From Macrobid] strawberry Allergy Hives Verified 03/06/24 15:53 Sulfa (Sulfonamide AdvReac Other Verified 03/06/24 15:53 Antibiotics) Review of Systems Review of Systems: CONSTITUTIONAL: Denies fever, chills, or sweats. EYES: Denies visual changes, redness, or discharge. ENT: Denies rhinorrhea, congestion, sore throat, or otalgia. CARDIOVASCULAR: See HPI RESPIRATORY: See HPI GASTROINTESTINAL: Denies abdominal pain, nausea, vomiting, or diarrhea. GENITOURINARY: See HPI SKIN: Denies rash or itching. MUSCULOSKELETAL: See HPI. NEUROLOGIC: Denies headache, numbness, or weakness. PSYCHIATRIC: Denies anxiety or depression. [facility] Social History Social History Smoking status: Never smoker Second hand tobacco smoke exposure: No Alcohol intake: never Substance use: never Spiritual care concerns: No Exam Narrative: GENERAL: Well-appearing, well-nourished, and in no acute distress. HEAD: Normocephalic, atraumatic. EYES: PERRLA and EOMI. ENT: Nares clear, no rhinorrhea or epistaxis. Mucous membranes moist. NECK: Supple. CHEST: Clear to auscultation. No respiratory distress. HEART: Regular rate and rhythm. No murmur heard. Normal peripheral pulses. ABDOMEN: Soft, nontender, nondistended, normal active bowel sounds. CVA tenderness bilaterally EXTREMITIES: No tenderness to left shoulder, however sev
[2024-03-20 21:26] LABS: Appearance Urine Cloudy (Clear); Bacteria Urine None Seen /hpf; Bilirubin Urine Negative (Negative); Blood Urine 3+ (Negative); Color Urine Dark Yellow (Yellow); Glucose Urine UA Negative (Negative); Ketones Urine Negative (Negative); Leukocyte Esterase Ur Trace LEU/UL (Negative); Need Manual Microscopic Reviewed; Nitrate Urine Negative (Negative); Non Pathogenic Casts 0-2; Protein Urine 2+ mg/dL (Negative); RBC Urine >100 /hpf (0-2); Specific Grav Ur 1.022 (1.001-1.035); Squamous Epithelial Cell Urine None Seen /hpf (Few); pH Urine 5.5 (5.0-9.0)
[2024-03-20 21:32] LABS: Add Urine Microscopic? YES
[2024-03-20] MEDS: ACETAMINOPHEN 325 MG TABLET 650 MG PO (21:34)
[2024-03-20 23:33] LABS: Troponin I < 0.012 ng/mL (0.000-0.034)
--- NOTE | 2024-03-20 23:57 | ECG_ITS ---
SEE SCANNED COPY FOR CONFIRMED REPORT MTDD
[2024-03-21] MEDS: POTASSIUM CHLORIDE 20 MEQ PACKET (FOR LIQUID) PO (00:02)
[2024-03-21 00:15] VITALS: BP 151/85; PULSE 91; RESP 15; O2SAT 95
[2024-03-21] MEDS: CEPHALEXIN 500 MG CAPSULE PO (00:37)
== END 2024-03-21 01:35 | disposition home or self-care (01) ==
PROVIDERS: Emergency Provider Physician Assistant; PCP Nurse Practitioner Family
DX: N30.01 Acute cystitis with hematuria (principal); M25.512 Pain in left shoulder; I10 Essential (primary) hypertension; E78.5 Hyperlipidemia, unspecified; I69.364 Other paralytic syndrome following cerebral infarction affecting left non-dominant side
CPT/HCPCS: 36415; 73030; 74176; 80053; 81001; 83605; 83690; 84484; 85025; 85610; 85730; 87077; 87086; 87088; 87181; 93005; 99284; A9270

== ENCOUNTER 2024-09-09 12:50 | Inpatient (IN) | payer MEDICARE, SELFPAY ==
[2024-09-09] VITALS (7 sets, daily range): BP systolic 103–139; BP diastolic 60–81; PULSE 79–97; RESP 15–19; TEMP 36.2–36.6; O2SAT 94–100; BMI 25.0
--- NOTE | ~2024-09-09 | XR_ITS ---
XR abdomen/kub 1V DATE: 09/09/2024 15:42 INDICATION: Evaluate stool burden TECHNIQUE: 2 supine AP views COMPARISON: None FINDINGS: No evidence of bowel obstruction. No significant stool burden is noted. No visceromegaly is detected. IMPRESSION: No significant stool burden; no bowel obstruction Reviewed, dictated and finalized at [facility]. Reviewed, dictated and finalized at [facility].
--- NOTE | ~2024-09-09 | CT_ITS ---
EXAMINATION: CT abdomen pelvis w con DATE: 09/09/2024 18:56 INDICATION: Guaiac positive stools, new anemia. TECHNIQUE: Computed tomography (CT) of the abdomen and pelvis was performed without intravenous contr ast. Automated exposure control and iterative reconstruction technique were employed. Exam dose: 851 .46 mGy-cm total exam DLP. COMPARISON: 03/20/2024 CT abdomen pelvis 09/09/2024 KUB FINDINGS: The lung bases are clear. Cardiomegaly. No pericardial or pleural effusion. The gallbladder is absent. No bile duct dilatation. No hepatic, splenic, pancreatic or adrenal space-occupying mass lesion. No pancreatic duct dilatation . 3 mm probable right renal cyst. No other renal space occupying mass lesion or urinary tract calculus or hydroureteronephrosis is detected. The urinary bladder is unremarkable. Fibroid change of the uterus, included from a calcified right fundal serosal fibroid, larger left-janel ed uterine heterogeneous probable fibroid. The ovaries are unremarkable. There is atherosclerotic calcification but normal caliber of the abdominal aorta. No intraperitoneal or retroperitoneal or pelvic mass lesion or adenopathy or ascites is detected. Normal appendix. Occasional colonic diverticula; no CT evidence of diverticulitis. No bowel obstructi on or intraperitoneal free air. Left parasagittal approximate 1.3 cm ventral abdominal wall defect with fat herniation measuring up t o 2.4 cm AP and 5.5 cm transverse dimension. Thoracic and lumbar spine degenerative changes IMPRESSION: Occasional colonic diverticula; no CT evidence of diverticulitis Normal appendix 3 mm right renal cyst Status post cholecystectomy Uterine fibroids 2.4 x 5.5 cm left parasagittal ventral abdominal wall fat herniation Cardiomegaly Reviewed, dictated and finalized at [facility]. Reviewed, dictated and finalized at [facility].
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
[2024-09-09] MEDS: ONDANSETRON HCL ODT 4 MG TABLET PO (16:10)
[2024-09-09 16:24] LABS: Influenza A QL RT-PCR Negative (Negative); Influenza B QL RT-PCR Negative (Negative); SARS-CoV-2 RNA PCR Negative (Negative)
[2024-09-09 17:24] LABS: Basophils Percent Auto 0.4 % (0.2-1.2); Eosinophils Percent Auto 0.1 % (0-4.4); Hematocrit 23.4 % (37.0-47.0); Immature Granulocyte Absolute 0.03 K/mm3 (0.00-0.031); Immature Granulocyte Percent A 0.4 % (0-0.5); Lymphocytes Percent Auto 14.1 % (18.3-44.2); Mean Corpuscular HGB Conc 29.1 g/dl (32-36); Mean Corpuscular Hemoglobin 22.7 pg (26-34); Mean Corpuscular Volume 78.3 fl (80-100); Mean Platelet Volume 12.1 fl (7.4-10.4); Monocytes Absolute Auto 0.3 K/mm3 (0.1-0.6); Monocytes Percent Auto 3.8 % (2.6-8.5); Neutrophils Absolute Auto 6.4 K/mm3 (1.3-6.7); Neutrophils Percent Auto 81.2 % (45.5-73.1); Platelet Count Result 183 k/mm3 (150-375); Red Blood Count 2.99 M/mm3 (4.2-5.4); Red Cell Distribution Width 17.9 % (11.5-14.5); White Blood Count 7.8 K/mm3 (4.5-10.0)
[2024-09-09 17:34] LABS: Alanine Aminotransferase 12 U/L (6-35); Albumin Level 4.1 g/dL (3.5-5.1); Alkaline Phosphatase 64 U/L (38-126); Anion Gap 7 mmol/L (4-12); Aspartate Amino Transferase 18 U/L (14-36); Bilirubin,Total 0.2 mg/dL (0.2-1.3); Blood Urea Nitrogen 24 mg/dL (7-17); Calcium 9.3 mg/dL (8.4-10.2); Carbon Dioxide 29 mmol/L (22-30); Chloride 104 mmol/L (98-107); Estimated Glomerular Filt Rate > 60; Glucose 109 mg/dL (65-110); Hemoglobin 6.8 g/dL (12.0-15.0); Lipase 106 U/L (23-300); Magnesium 1.7 mg/dL (1.6-2.3); Platelet Estimate Adequate (Adequate); Potassium 3.7 mmol/L (3.4-5.0); Sodium 140 mmol/L (137-145)
[2024-09-09 17:35] LABS: Hypochromasia 1+; Ovalocytes 1+; Schistocytes None Seen
[2024-09-09 20:07] LABS: Add Urine Microscopic? YES; Appearance Urine Clear (Clear); Bacteria Urine 4+ /hpf; Bilirubin Urine Negative (Negative); Blood Urine 3+ (Negative); Calcium Oxalate Crystals Urine Present /hpf; Color Urine Yellow (Yellow); Glucose Urine UA Negative (Negative); Ketones Urine Trace mg/dL (Negative); Leukocyte Esterase Ur 1+ LEU/UL (Negative); Need Manual Microscopic Reviewed; Nitrate Urine Positive (Negative); Non Pathogenic Casts 0-2; Protein Urine Trace mg/dL (Negative); RBC Urine 21-50 /hpf (0-2); Specific Grav Ur > 1.045 (1.001-1.035); Squamous Epithelial Cell Urine Occasional /hpf (Few); WBC Urine 51-100 /hpf (0-3); pH Urine 6.5 (5.0-9.0)
--- NOTE | 2024-09-09 20:54 | ECG_ITS ---
Test Date: 2024-09-10 00:19:14 Measurements Intervals [place] Rate: 71 P: 70 [place]: 160 QRS: -5 QRSD: 94 T: 67 QT: 373 QTc: 407 Interpretive Statements SINUS RHYTHM BORDERLINE R WAVE PROGRESSION, ANTERIOR LEADS CONSIDER INFERIOR INFARCT, AGE INDETERMINATE NONSPECIFIC T-WAVE ABNORMALITY- HIGH LATERAL LEADS ABNORMAL ECG No previous ECG available for comparison Electronically Signed On 09-10-2024 09:26:46 [employer]SE BUILDER by Leonel Estrada D.O.
--- NOTE | 2024-09-09 21:15 | PM.IMHP ---
H&P: HPI History of Present Illness Date/Time: 09/09/24 22:00 Chief Complaint: Syncope, nausea, vomiting. Narrative: This is a 64-year-old female with history of right MCA stroke in 11/2023 with residual left hemiplegia, atrial fibrillation on chronic anticoagulation, hypertension, dyslipidemia, type 2 diabetes mellitus, gastroesophageal reflux disease, and anxiety who presented to the emergency department via EMS from [facility] for evaluation of nausea, vomiting, and syncope. The patient provides the following history; her son Fernandez provides additional information with the patient's permission. She has been more tired than usual over the past week or so and this morning she was increasingly fatigued and was feeling lightheaded even in a seated position. She has been feeling nauseated most of the day and reports having several episodes of emesis which occurred after drinking water and Lai-Aid. She also describes having several episodes of near-syncope and her son witnessed a syncopal episode prior to him calling 911. With further questioning she thinks that her stools have been dark recently as well. While in CT scan she had an episode of heaviness in the left side of her chest radiating through to the scapula with no other associated symptoms. That resolved without intervention and has not recurred. She denies further episodes of near-syncope, chest pain, pleuritic pain, palpitations, shortness of breath, pleuritic pain, cold and flu symptoms, abdominal pain, epigastric pain, bloating, belching, hematemesis, hematochezia, and vaginal bleeding (she has had vaginal bleeding in the past). In the ED: She was afebrile on arrival with a blood pressure 103/60 and a pulse of 85. Labs were significant for a hemoglobin of 6.8, hematocrit 23.4%, MCV 70.3, platelet 183, BUN 24, creatinine 0.60. Urinalysis was positive for trace ketones, 3+ blood, nitrates, 1+ leukocyte esterase, 21 to 50 RBC, 51 to 100 WBC, and 4+ bacteria. She tested negative for influenza and COVID. CT scan of the abdomen pelvis showed occasional colonic diverticula, uterine fibroids, left parasagittal ventral abdominal wall fat herniation, and cardiomegaly. Stool was Hemoccult negative per ED physician. She was given a dose of ceftriaxone for possible urinary tract infection and is being admitted in this setting for blood transfusion and GI consultation. Review of Systems Review of Systems: 12 systems were reviewed and are negative except for as per HPI. [facility] Past Medical History Medical History (Updated 09/09/24 @ 23:43 by Layne Hutchison PA-C) Anxiety Atherosclerotic heart disease of [place] coronary artery without angina pectoris Atrial fibrillation Thomas's palsy Cerebral infarction due to embolism of right middle cerebral artery (11/2023) failed mechanical thrombectomy status post hemicraniectomy for edema residual left hemiplegia Chronic anticoagulation Depression Diaphragmatic hernia without obstruction or gangrene Diastolic heart failure Endometrial cancer Fatty liver Flaccid hemiplegia affecting left nondominant side Gastroesophageal reflux disease Hyperlipidemia Hypertension Left bundle-branch block, unspecified Type 2 diabetes mellitus Surgical History Surgical History (Updated 09/09/24 @ 23:37 by Layne Hutchison PA-C) History of cholecystectomy History of colonoscopy before 2020 History of craniotomy right Family History Family History (Updated 09/09/24 @ 23:37 by Layne Hutchison PA-C) Other Family history non-contributory Social History Social History (Updated 09/09/24 @ 23:38 by Layne Hutchison PA-C) Social History: Surrogate medical decision maker: Fernandez Wiggins ([phone]), son. Code status: Full code. Smoking status: Never smoker Second hand tobacco smoke exposure: No Alcohol intake: never Substance use: never Living arrangements: [facility] Additional living arrangements comments: [facility] since 04/25/24. Spiritual care concerns: No Meds Home Medications and Allergies Home Medications Medication Instructions Recorded Confirmed Type acetaminophen 325 mg tablet 650 mg PO Q4H PRN Pain (Scale 12/19/23 12/19/23 History Score 1-3) albuterol sulfate 90 mcg/actuation 2 puff inhalation Q6H PRN Wheezing 12/19/23 12/19/23 History aerosol inhaler apixaban 5 mg tablet 5 mg PO BID 12/19/23 12/19/23 History aspirin 81 mg tablet,delayed 81 mg PO DAILY 12/19/23 12/19/23 History release atorvastatin 40 mg tablet 40 mg PO HS 12/19/23 12/19/23 History calcium 600 mg (as 1 tablet PO BID 12/19/23 12/19/23 History carbonate)-vitamin D3 10 mcg (400 unit) tablet (Calcium with Vitamin D) cholecalciferol (vitamin D3) 25 25 mcg PO TID 12/19/23 12/19/23 History mcg (1,000 unit) tablet ferrous sulfate 325 mg (65 mg 325 mg PO QACBREAK 12/19/23 12/19/23 History iron) tablet gabapentin 250 mg/5 mL oral 100 mg PO TID 12/19/23 12/19/23 History solution megestrol 400 mg/10 mL (40 mg/mL) 200 mg PO DAILY 12/19/23 12/19/23 History oral suspension melatonin 3 mg tablet 3 mg PO HS 12/19/23 12/19/23 History metformin 500 mg tablet 500 mg PO DAILY 12/19/23 12/19/23 History metoprolol succinate 25 mg 25 mg PO DAILY 12/19/23 12/19/23 History tablet,extended release 24 hr omeprazole 20 mg capsule,delayed 20 mg PO DAILY 12/19/23 12/19/23 History release oxycodone 5 mg capsule 5 mg PO Q6H PRN Pain (Scale Score 12/19/23 12/19/23 History 4-6) polyethylene glycol 3350 17 gram 17 g PO DAILY 12/19/23 12/19/23 History oral powder packet sennosides 8.6 mg tablet 8.6 mg PO DAILY 12/19/23 12/19/23 History ondansetron HCl 4 mg tablet 4 mg PO TID PRN Nausea And 01/07/24 12/19/23 Rx Vomiting #60 tabs quetiapine 25 mg tablet (Seroquel) 25 mg PO BID 30 days #60 tabs 01/07/24 Rx sertraline 50 mg tablet (Zoloft) 50 mg PO QAM 30 days #30 tabs 01/07/24 Rx ciprofloxacin HCl 500 mg tablet 500 mg PO Q12H #14 tabs 01/16/24 Rx (Cipro) ondansetron 4 mg disintegrating 4 mg PO Q6H PRN nausea and 01/22/24 Rx tablet vomiting #10 tabs potassium chloride 20 mEq 20 meq PO DAILY #7 tabs 01/22/24 Rx tablet,extended release amoxicillin 875 mg-potassium 1 tablet PO Q12H #8 tabs 02/22/24 Rx clavulanate 125 mg tablet azithromycin 250 mg tablet See Rx Instructions PO .COMPLEX #6 02/22/24 Rx tabs famotidine 20 mg tablet 20 mg PO DAILY #30 tabs 02/22/24 Rx loperamide 2 mg capsule 2 mg PO Q6H PRN loose stool #14 02/22/24 Rx caps ondansetron HCl 4 mg tablet 4 mg PO Q8H PRN nausea and 02/22/24 Rx vomiting #10 tabs potassium chloride 10 mEq 10 meq PO BID #30 caps 02/22/24 Rx capsule,extended release cephalexin 500 mg capsule 500 mg PO Q6H #28 caps 03/21/24 Rx Allergies Allergy/AdvReac Type Severity Reaction Status Date / Time codeine Allergy Unknown HIVES, Verified 03/06/24 15:53 VOMITING nitrofurantoin Allergy Rash Verified 03/06/24 15:53 [From Macrobid] strawberry Allergy Hives Verified 03/06/24 15:53 Sulfa (Sulfonamide AdvReac Other Verified 03/06/24 15:53 Antibiotics) Vital Signs Vital Signs - 24 hr 09/09/24 13:06 09/09/24 14:15 09/09/24 16:02 Temperature 97.9 F 97.5 F L Pulse Rate 85 79 82 Respiratory Rate 17 16 16 Blood Pressure 103/60 115/74 126/72 Pulse Oximetry 100 98 98 09/09/24 20:57 09/09/24 21:13 Temperature 97.8 F 97.2 F L Pulse Rate 89 97 Respiratory Rate 19 19 Blood Pressure 117/81 139/78 Pulse Oximetry 94 96 Exam Narrative: General: Mildly ill female in the semi-Jenkins position in bed. HEENT: PERRL, EOMI. Sclera anicteric. Pale conjunctiva. Tacky mucous membranes. Neck: Supple. Respiratory: Lungs are clear to auscultation bilaterally. Cardiovascular: Irregularly irregular rate and rhythm. Gastrointestinal: Abdomen is soft, nontender, and nondistended with positive bowel sounds. No guarding or rebound tenderness. Skin: Warm and dry. Generalized pallor Extremities: No cyanosis, clubbing, or edema. Radial and pedal pulses intact. Neurological: Alert. Cranial nerves 2-12 are grossly intact. Speech is clear. Left-sided facial droop and dense left hemiplegia. Psychiatric: Pleasant and cooperative with appropriate mood and affect. H&P: Results Labs Labs: Short CBC 11/02/24 Range/Units 17:14 WBC 7.8 (4.5-10.0) K/mm3 Hgb 6.8 L* D (12.0-15.0) g/dL Hct 23.4 L (37.0-47.0) % Plt Count 183 (150-375) k/mm3 BMP 09/09/24 17:14 Sodium 140 Potassium 3.7 Chloride 104 Carbon Dioxide 29 BUN 24 H D Creatinine 0.60 L Glucose 109 Calcium 9.3 Liver Function 09/09/24 Range/Units 17:14 Total Bilirubin 0.2 (0.2-1.3) mg/dL AST 18 (14-36) U/L ALT 12 (6-35) U/L Alkaline Phosphatase 64 (38-126) U/L Albumin 4.1 (3.5-5.1) g/dL Urine 09/09/24 Range/Units 19:49 Urine Color Yellow (Yellow) Urine Appearance Clear (Clear) Urine pH 6.5 (5.0-9.0) Ur Specific [place] > 1.045 H (1.001-1.035) Urine Protein Trace (Negative) mg/dL Urine Glucose (UA) Negative (Negative) mg/dL Imaging Abdomen X-Ray 09/09/24 15:43 IMPRESSION: 1. No significant stool burden; no bowel obstruction. Abdomen/Pelvis CT 09/09/24 18:57 IMPRESSION: 1. Occasional colonic diverticula; no CT evidence of diverticulitis. 2. Normal appendix. 3. 3 mm right renal cyst. 4. Status post cholecystectomy. 5. Uterine fibroids. 6. 2.4 x 5.5 cm left parasagittal ventral abdominal wall fat herniation. 7. Cardiomegaly. 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 Status: Acute (6) Atrial fibrillation: Code(s): I48.91 - Unspecified atrial fibrillation Status: Acute (7) Gastroesophageal reflux disease: Code(s): K21.9 - Gastro-esophageal reflux disease without esophagitis Status: Acute (8) Hypertension: Code(s): I10 - Essential (primary) hypertension Status: Acute (9) Type 2 diabetes mellitus: Code(s): E11.9 - Type 2 diabetes mellitus without complications Status: Acute (10) Diastolic heart failure: Code(s): I50.30 - Unspecified diastolic (congestive) heart failure Status: Acute (11) Uterine fibroid: Code(s): D25.9 - Leiomyoma of uterus, unspecified Status: Acute Plan The patient presented to the emergency department for evaluation of nausea, vomiting, and syncope as detailed in HPI. Labs, imaging, EKG, and all reports were personally reviewed. She is profoundly anemic and I suspect her syncope is related to that. She will be monitored on telemetry overnight to rule out dysrhythmia. Echocardiogram ordered; cardiomegaly with noted on imaging. Troponin and EKG pending as she reports having a brief episode of chest pain while CT scan though that has resolved and has not recurred. She will be transfused to a stable hemoglobin. Iron studies are pending. ED physician reports that her stool was Hemoccult negative on rectal exam however suspicions are for occult GI bleeding and Dr. Landa has been consulted. Continue PPI. She has a history of vaginal bleeding and had an endometrial biopsy a little over 5 years ago which was negative for malignancy. Uterine fibroids were noted on CT today and if she has recurrent bleeding a pelvic ultrasound would be prudent. Hold aspirin and apixaban for now. Continue ceftriaxone for suspected urinary tract infection, pending culture. She is in rate controlled atrial fibrillation. Blood pressures were reviewed and they are stable. Check orthostatic vital signs and initiate fall precautions. Hold metformin as she received contrast. Initiate sliding scale insulin, Accu-Cheks, and hypoglycemic protocol. Check hemoglobin A1c. Care coordination has been consulted as she would like to designate her son as her healthcare power of estate planning attorney. She would also like to discuss options as she is not happy at her current facility. The rest of her home medications will be reviewed and resumed as appropriate. Findings and treatment plan were discussed with the patient. Questions were solicited and answered to satisfaction. The patient's medical management will be taken over by the hospitalist team in a.m. Quality VTE Prophylaxis VTE prophylaxis: mechanical ordered If No VTE Prophylaxis Answer both mechanical and pharmacologic: Reason no pharmacologic proph: medical contraindication (symptomatic anemia) The patient has been admitted under observation status. Hospitalist MIPS Advance Care Plan I have confirmed that the patient's Advanced Care Plan is present, code status is documented, or surrogate decision maker is listed in patient medical record.: Yes Medication Reconciliation I have utilized all available resources to obtain, update and review the patients current medications (includes all prescriptions, OTC, herbals, cannabis, and nutritional supplements).: Yes
--- NOTE | 2024-09-09 23:03 | ADMGEN ---
This patient, Zaira Cason, was admitted to Medical Room 344-01. Patient/family oriented to hospital policies and general routines including ID bracelet, bed and alarms, visiting hours, pain management, procedures, bathroom and other care routines, personal items, smoking policy, room service/diet, and visiting hours. Information on how to activate the Rapid Response Team has been discussed. Patient/Family are encouraged to report perceived risks to care and to ask questions if they do not understand what they are told or what they should do.
[2024-09-09 23:28] LABS: Iron 24 ug/dL (37-170)
[2024-09-09 23:37] LABS: Percent Iron Saturation 6 % (20-50)
[2024-09-09 23:42] LABS: Troponin I < 0.012 ng/mL (0.000-0.034)
[2024-09-10] VITALS (13 sets, daily range): BP systolic 118–161; BP diastolic 61–95; PULSE 59–84; RESP 16–18; TEMP 36.2–36.8; O2SAT 94–100
[2024-09-10 00:05] LABS: Ferritin 6.52 ng/mL (11.1-264)
[2024-09-10 01:33] LABS: Hematocrit 25.1 % (37.0-47.0); Hemoglobin 7.8 g/dL (12.0-15.0); Mean Corpuscular HGB Conc 31.1 g/dl (32-36); Mean Corpuscular Hemoglobin 24.8 pg (26-34); Mean Corpuscular Volume 79.9 fl (80-100); Platelet Count Result 155 k/mm3 (150-375); Red Blood Count 3.14 M/mm3 (4.2-5.4); White Blood Count 6.9 K/mm3 (4.5-10.0)
[2024-09-10] MEDS: ATORVASTATIN 40 MG TABLET PO ×2 (01:44→20:55)
[2024-09-10 01:45] LABS: Anion Gap 10 mmol/L (4-12); Blood Urea Nitrogen 21 mg/dL (7-17); Calcium 9.2 mg/dL (8.4-10.2); Carbon Dioxide 28 mmol/L (22-30); Chloride 104 mmol/L (98-107); Estimated CRCL calculation 68 ml/min; Estimated Glomerular Filt Rate > 60; Glucose 81 mg/dL (65-110); Magnesium 1.7 mg/dL (1.6-2.3); Potassium 3.1 mmol/L (3.4-5.0); Sodium 142 mmol/L (137-145)
[2024-09-10] MEDS: MELATONIN 3 MG TABLET PO ×2 (01:45→20:55)
[2024-09-10] MEDS: MELATONIN 5 MG TABLET PO ×2 (01:45→20:55)
--- NOTE | 2024-09-10 01:54 | PC.NURSE ---
Daylight Savings Time For Daylight Savings Time Ending in the Fall - Clocks are moved back. For Daylight Savings Time Beginning in the Spring - Clocks are moved ahead. For [facility], the time of change occurs at 0200 hrs. Time is taken from the civil process server. This entry on the patient's chart recognizes the change in time reflected during documentation. Example: 2 entries for vital signs may be charted for 0200 hrs.
[2024-09-10] MEDS: traMADol HCL (*CRX) 50 MG TABLET PO (02:30)
--- NOTE | 2024-09-10 08:56 | PM.IMPN ---
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 Status: Acute (6) Atrial fibrillation: Code(s): I48.91 - Unspecified atrial fibrillation Status: Acute (7) Gastroesophageal reflux disease: Code(s): K21.9 - Gastro-esophageal reflux disease without esophagitis Status: Acute (8) Hypertension: Code(s): I10 - Essential (primary) hypertension Status: Acute (9) Type 2 diabetes mellitus: Code(s): E11.9 - Type 2 diabetes mellitus without complications Status: Acute (10) Diastolic heart failure: Code(s): I50.30 - Unspecified diastolic (congestive) heart failure Status: Acute (11) Uterine fibroid: Code(s): D25.9 - Leiomyoma of uterus, unspecified Status: Acute Plan Syncope Unclear etiologies, possible due to also static hypotension, anemia, Continue telemetry monitoring, no significant arrhythmia so far Pending echocardiogram Neuro check Orthostatic test Severe anemia, possible acute blood loss anemia Hemoglobin 6.8, received transfusion Hemoglobin 14.2 on March 20, 2024, Follow-up hemoglobin q.6 hours Transfuse p.r.n. Iron deficiency, Iron 24, saturation 6 %, starting 6.52 Start Venofer 100 mg daily IV Acute GI her stool was Hemoccult negative on rectal exam however suspicions are for occult GI bleeding and Dr. Landa has been consulted. Continue PPI. UTI Continue ceftriaxone for suspected urinary tract infection, pending culture. AFib She is in rate controlled atrial fibrillation. Hold aspirin and Eliquis Type 2 diabetes Hold metformin as she received contrast. Initiate sliding scale insulin, Accu-Cheks, and hypoglycemic protocol. Check hemoglobin A1c. Care coordination has been consulted as she would like to designate her son as her healthcare power of cook italian style food. She would also like to discuss options as she is not happy at her current facility. The rest of her home medications will be reviewed and resumed as appropriate. Findings and treatment plan were discussed with the patient. Questions were solicited and answered to satisfaction. The patient's medical management will be taken over by the hospitalist team in a.m. Subjective Date/time seen: 09/10/24 08:56 Interval history: I saw exam patient today, patient feels better today, patient still has general weakness. Patient denies nausea vomiting bloody stools Exam Narrative: GENERAL: Pleasant, in no acute distress. Well-nourished. - EYES: EOMI. Anicteric. - HENT: Moist mucous membranes. Pale - LUNGS: Clear to auscultation bilaterally, no wheezing, rhonchi, or rales. - CARDIOVASCULAR: Regular rate and rhythm. No murmur. No JVD. - ABDOMEN: Soft, non-tender and non-distended. No palpable masses. - EXTREMITIES: No edema. Peripheral pulses 2+. Non-tender. - NEUROLOGIC: No focal neurological deficits. CN II-XII grossly intact. - PSYCHIATRIC: Awake, Alert and oriented x 3. Appropriate mood and affect. - SKIN: No rashes or lesions. Warm. - LYMPH: No cervical lymphadenopathy. Objective Data Vital Signs Vital Signs: Vital Signs - 24 hr 09/09/24 13:06 09/09/24 14:15 09/09/24 16:02 Temperature 97.9 F 97.5 F L Pulse Rate 85 79 82 Respiratory Rate 17 16 16 Blood Pressure 103/60 115/74 126/72 Pulse Oximetry 100 98 98 Oxygen Delivery 09/09/24 20:57 09/09/24 21:13 09/09/24 21:44 Temperature 97.8 F 97.2 F L 97.9 F Pulse Rate 89 97 88 Respiratory Rate 19 19 15 Blood Pressure 117/81 139/78 129/79 Pulse Oximetry 94 96 96 Oxygen Delivery 09/09/24 22:13 09/10/24 00:09 09/10/24 00:11 Temperature 97.5 F L 98.2 F 98.2 F Pulse Rate 86 77 77 Respiratory Rate 19 18 18 Blood Pressure 130/72 149/69 H 149/69 H Pulse Oximetry 96 100 100 Oxygen Delivery 09/10/24 00:00 09/10/24 02:15 09/10/24 04:00 Temperature Pulse Rate 78 84 Respiratory Rate Blood Pressure Pulse Oximetry Oxygen Delivery Room Air 09/10/24 06:00 09/10/24 06:00 09/10/24 06:05 Temperature 97.6 F 97.6 F 97.1 F L Pulse Rate 74 74 81 Respiratory Rate 16 16 18 Blood Pressure 118/61 118/61 136/83 Pulse Oximetry 94 94 96 Oxygen Delivery Intake/Output Intake/Output: Intake & Output 09/07/24 09/08/24 09/09/24 09/10/24 23:59 23:59 23:59 22:59 Intake Total 0 600 Output Total 300 Balance 0 300 Meds/Results Medications: Active Medications Generic Name Dose Route Start Last Admin Trade Name Freq PRN Reason Stop Dose Admin Acetaminophen 650 mg 09/10/24 01:31 ALIGNING INSPECTOR Acetaminophen 325 Mg Tablet PO Q4H PRN Pain Rated 1-3 or Fever Albuterol 2 puff 09/10/24 01:31 ALIGNING INSPECTOR Albuterol Sulfate (*Sp) Aerosol 1 Puff INHALATION Q4H PRN Wheezing Atorvastatin Calcium 40 mg 09/10/24 01:40 ALIGNING INSPECTOR 09/10/24 01:44 ALIGNING INSPECTOR Atorvastatin 40 Mg Tablet PO 40 mg HS FROY Administration Calcium Carbonate 500 mg 09/10/24 09:00 Calcium/Vitamin D 500 Mg/5 Mcg (200 I.U.) Tablet PO BID FROY Dextrose 12.5 gm 09/09/24 23:48 Dextrose 50% 25 Gm/50 Ml Syringe IV PUSH PRN PRN Hypoglycemia Protocol Ferrous Sulfate 325 mg 09/10/24 08:00 Ferrous Sulfate [address] BY MOUTH DAILY@0800 FROY Glucagon 1 mg 09/09/24 23:48 Glucagon For Inj 1 Mg Vial IM PRN PRN Hypoglycemia Protocol Glucose 15 gm 09/09/24 23:48 Glucose Oral Gel 15 Gm Of Glucse In 37.5 Gm Tube PO PRN PRN Hypoglycemia Protocol Hydroxyzine Pamoate 50 mg 09/10/24 02:21 Hydroxyzine Pamoate 25 Mg Capsule PO Q8H PRN anxiety Dextrose 1,000 mls @ 100 mls/hr 09/09/24 23:48 Dextrose 5% 1,000 Ml IVPB PRN PRN Hypoglycemia Protocol Ceftriaxone Sodium 1 gm in 50 mls @ 100 mls/hr 09/10/24 00:00 09/10/24 01:51 CDT Rocephin 1 Gm/Ns 50 Ml IVPB Infused Q24H [facility] Infusion Insulin Aspart 3 - 6 units 09/10/24 08:00 Insulin Aspart (*Bkc) 100 Units/Ml SUB-Q TIDWM [facility] Protocol Insulin Aspart 1 - 3 units 09/10/24 21:00 Insulin Aspart (*Bkc) 100 Units/Ml SUB-Q HS [facility] Protocol Melatonin 3 mg 09/10/24 01:40 ALIGNING INSPECTOR 09/10/24 01:45 ALIGNING INSPECTOR Melatonin 3 Mg Tablet PO 3 mg HS FROY Administration Melatonin 5 mg 09/10/24 01:35 ALIGNING INSPECTOR 09/10/24 01:45 ALIGNING INSPECTOR Melatonin 5 Mg Tablet PO 5 mg QHS FROY Administration Metoprolol Succinate 25 mg 09/10/24 09:00 Metoprolol Succinate Ext Rel 25 Mg Tabcr PO Q12HR [facility] Ondansetron HCl 4 mg 09/09/24 20:17 Ondansetron Inj 4 Mg/2 Ml Vial IV PUSH Q4H PRN Nausea Pantoprazole Sodium 40 mg 09/10/24 09:00 Pantoprazole 40 Mg Tablet PO BID [facility] Perflutren Lipid Microsphere 0 ml 09/09/24 23:48 Perflutren Lipid Microspheres 1.5 Ml Vial Diluted To 10 Ml Total Volume IV PUSH 09/12/24 23:48 ONCE PRN adequate visualization Protocol Polyethylene Glycol 17 gm 09/10/24 09:00 Polyethylene Glycol 3350 17 Gm Powd.Pack PO DAILY [facility] Sertraline HCl 50 mg 09/10/24 09:00 Sertraline Hcl 50 Mg Tablet PO QAM [facility] Tramadol HCl 50 mg 09/10/24 01:31 ALIGNING INSPECTOR 09/10/24 02:30 Tramadol Hcl (*Crx) 50 Mg Tablet PO 50 mg Q8H PRN Administration Pain 4-6 Vitamin D 1,000 units 09/10/24 09:00 Cholecalciferol 1,000 Units Tablet PO BID [facility] Radiology Results: ITS Impressions Abdomen X-Ray 09/09/24 15:43 IMPRESSION: No significant stool burden; no bowel obstruction Abdomen/Pelvis CT 09/09/24 18:57 IMPRESSION: Occasional colonic diverticula; no CT evidence of diverticulitis Normal appendix 3 mm right renal cyst Status post cholecystectomy Uterine fibroids 2.4 x 5.5 cm left parasagittal ventral abdominal wall fat herniation Cardiomegaly Labs Labs: Laboratory Results - last 24 hr 09/09/24 09/09/2409/09/24 15:44 17:14 18:13 WBC 7.8 RBC 2.99 L Hgb 6.8 L* D Hct 23.4 L MCV 78.3 L MCH 22.7 L MCHC 29.1 L RDW 17.9 H Plt Count 183 MPV 12.1 H Immature Gran % (Auto) 0.4 Neut % (Auto) 81.2 H Lymph % (Auto) 14.1 L [place] % (Auto) 3.8 Eos % (Auto) 0.1 Baso % (Auto) 0.4 Lymph # (Auto) 1.10 [place] # (Auto) 0.3 Eos # (Auto) 0.0 Baso # (Auto) 0.0 Abs Immat Gran (auto) 0.03 Absolute Neuts (auto) 6.4 Absolute Nucleated RBC 0.000 Nucleated RBC % 0.0 Platelet Estimate Adequate Hypochromasia 1+ Ovalocytes 1+ Schistocytes None seen Sodium 140 Potassium 3.7 Chloride 104 Carbon Dioxide 29 Anion Gap 7 BUN 24 H D Creatinine 0.60 L Estim Creat Clear Calc Not Reportable Estimated GFR > 60 Glucose 109 Hemoglobin A1c Calcium 9.3 Magnesium 1.7 Iron TIBC % Saturation Ferritin Total Bilirubin 0.2 AST 18 ALT 12 Alkaline Phosphatase 64 Troponin I Total Protein 7.0 Albumin 4.1 Lipase 106 Urine Color Urine Appearance Urine pH Ur Specific [place] Urine Protein Urine Glucose (UA) Urine Ketones Ur Blood (Man) Urine Nitrate Urine Bilirubin Urine Urobilinogen Add Ur Microanalysis Leukocyte Esterase Rfl Urine RBC Urine WBC Ur Squamous Epith Cells Calcium Oxalate Crystal Urine Bacteria Urine Casts Influenza A (RT-PCR) Negative Influenza B (RT-PCR) Negative SARS-CoV-2 RNA (RT-PCR) Negative Blood Type O Positive Antibody Screen Negative Crossmatch See Detail 09/09/24 09/09/24 09/09/24 19:49 23:01 23:14 WBC RBC Hgb Hct MCV MCH MCHC RDW Plt Count MPV Immature Gran % (Auto) Neut % (Auto) Lymph % (Auto) [place] % (Auto) Eos % (Auto) Baso % (Auto) Lymph # (Auto) [place] # (Auto) Eos # (Auto) Baso # (Auto) Abs Immat Gran (auto) Absolute Neuts (auto) Absolute Nucleated RBC Nucleated RBC % Platelet Estimate Hypochromasia Ovalocytes Schistocytes Sodium Potassium Chloride Carbon Dioxide Anion Gap BUN Creatinine Estim Creat Clear Calc Estimated GFR Glucose Hemoglobin A1c 5.0 Calcium Magnesium Iron 24 L TIBC 424 % Saturation 6 L Ferritin 6.52 L Total Bilirubin AST ALT Alkaline Phosphatase Troponin I < 0.012 Total Protein Albumin Lipase Urine Color Yellow Urine Appearance Clear Urine pH 6.5 Ur Specific [place] > 1.045 H Urine Protein Trace Urine Glucose (UA) Negative Urine Ketones Trace H Ur Blood (Man) 3+ H Urine Nitrate Positive H Urine Bilirubin Negative Urine Urobilinogen 1.0 Add Ur Microanalysis Reviewed Leukocyte Esterase Rfl 1+ H Urine RBC 21-50 H Urine WBC 51-100 H Ur Squamous Epith Cells Occasional Calcium Oxalate Crystal Present Urine Bacteria 4+ H Urine Casts 0-2 Influenza A (RT-PCR) Influenza B (RT-PCR) SARS-CoV-2 RNA (RT-PCR) Blood Type Antibody Screen Crossmatch 09/10/24 09/10/24 09/10/24 01:29 ALIGNING INSPECTOR 01:29 ALIGNING INSPECTOR 01:29 ALIGNING INSPECTOR WBC 6.9 RBC 3.14 L Hgb 7.8 L Cancelled Hct 25.1 L Cancelled MCV 79.9 L MCH 24.8 L D MCHC 31.1 L RDW 18.0 H Plt Count 155 MPV 11.0 H Immature Gran % (Auto) Neut % (Auto) Lymph % (Auto) [place] % (Auto) Eos % (Auto) Baso % (Auto) Lymph # (Auto) [place] # (Auto) Eos # (Auto) Baso # (Auto) Abs Immat Gran (auto) Absolute Neuts (auto) Absolute Nucleated RBC Nucleated RBC % Platelet Estimate Hypochromasia Ovalocytes Schistocytes Sodium 142 Potassium 3.1 L Chloride 104 Carbon Dioxide 28 Anion Gap 10 BUN 21 H Creatinine 0.60 L Estim Creat Clear Calc 68 Estimated GFR > 60 Glucose 81 Hemoglobin A1c Calcium 9.2 Magnesium 1.7 Iron TIBC % Saturation Ferritin Total Bilirubin AST ALT Alkaline Phosphatase Troponin I Total Protein Albumin Lipase Urine Color Urine Appearance Urine pH Ur Specific [place] Urine Protein Urine Glucose (UA) Urine Ketones Ur Blood (Man) Urine Nitrate Urine Bilirubin Urine Urobilinogen Add Ur Microanalysis Leukocyte Esterase Rfl Urine RBC Urine WBC Ur Squamous Epith Cells Calcium Oxalate Crystal Urine Bacteria Urine Casts Influenza A (RT-PCR) Influenza B (RT-PCR) SARS-CoV-2 RNA (RT-PCR) Blood Type Antibody Screen Crossmatch
[2024-09-10 09:05] LABS: Glucose Point of Care 89 mg/dl (65-105)
[2024-09-10] MEDS: PANTOPRAZOLE 40 MG TABLET PO ×2 (09:07→18:16)
[2024-09-10] MEDS: CHOLECALCIFEROL 1,000 UNITS TABLET 1000 UNITS PO ×2 (09:07→18:16)
[2024-09-10] MEDS: polyethylene glycoL 3350 17 GM POWD.PACK PO (09:07)
[2024-09-10] MEDS: FERROUS SULFATE 325 MG TABLET DR BY MOUTH (09:07)
[2024-09-10] MEDS: SERTRALINE HCL 50 MG TABLET PO (09:07)
[2024-09-10] MEDS: CALCIUM/VITAMIN D 500 MG/5 MCG (200 I.U.) TABLET PO ×2 (09:07→18:15)
[2024-09-10] MEDS: METOPROLOL SUCCINATE EXT REL 25 MG TABCR PO ×2 (09:08→20:55)
[2024-09-10] MEDS: IRON SUCROSE COMPLEX 100 MG in SODIUM CHLORIDE 0.9% IV 50 ML 220 MG IVPB (10:25)
--- NOTE | 2024-09-10 14:45 | WPDGICN ---
Assessment and Plan Assessment and plan (1) Syncope: Code(s): R55 - Syncope and collapse Status: Acute Assessment and Plan: from symptomatic anemia she had endometrial lesion and wonder if could be reason of anemia also noted dark stools, she is agreeable for egd and colonoscopy tomorrow if negative then will need to see cleaner and polisher valeriy (description of endometrial lesion ? 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 Status: Acute Assessment and Plan: on hold for now (4) Hemiparesis affecting left side as late effect of cerebrovascular accident: Code(s): I69.354 - Hemiplegia and hemiparesis following cerebral infarction affecting left non-dominant side Status: Acute (5) Vaginal bleeding: Code(s): N93.9 - Abnormal uterine and vaginal bleeding, unspecified Status: Acute Assessment and Plan: needs to see contact center engineer again GI Consult Note Consult date/time: 09/10/24 14:45 Reason for consult: symptomatic anemia, syncope HPI: Zaira Cason is a 64 year old female f right MCA stroke in 11/2023 with R sided hemicraniectomy for elevated ICP at [facility] with residual left hemiplegia (thrombectomy during stroke was unsuccessful), atrial fibrillation on chronic anticoagulation, hypertension, dyslipidemia, type 2 diabetes mellitus, gastroesophageal reflux disease. Also during that hospitalization had vaginal bleeding and was seeing by cleaner and polisher for endometrial lesion. She was taken to the emergency department via EMS from local rehab for evaluation of nausea, vomiting, and syncope. Patient says that has been having vaginal bleeding again for 2 weeks but stopped several days ago, also noted dark stools and lately has been feeling more fatigue than usual. She was lightheaded even in a seated position, became nauseous with several episodes of emesis and then had syncopal episode. ER Labs were significant for a hemoglobin of 6.8, hematocrit 23.4%, MCV 70.3, platelet 183, BUN 24, creatinine 0.60. Urinalysis was positive for trace ketones, 3+ blood, nitrates, 1+ leukocyte esterase, 21 to 50 RBC, 51 to 100 WBC, and 4+ bacteria. She tested negative for influenza and COVID. CT scan of the abdomen pelvis showed occasional colonic diverticula, uterine fibroids. She says that had colonoscopy about 1 year ago (no records). Review of Systems Constitutional: Constitutional: Reports fatigue and Reports weakness Eyes: Eyes: Denies blurry vision ENT: Reports Normal hearing present Cardiovascular: Cardiovascular: Reports lightheadedness Respiratory: Respiratory: Denies cough Gastrointestinal: Gastrointestinal: Denies abdominal pain Genitourinary: Comments: vaginal bleeding Musculoskeletal: Musculoskeletal: Denies neck pain Integumentary/Breasts: Skin/Breast: Denies rash Neurologic: Comments: left sided paresis Psychiatric: Psychiatric: Denies confusion [facility] Past Medical History Medical History (Updated 09/10/24 @ 14:53 by Aryan Ott MD) Anxiety Atherosclerotic heart disease of [place] coronary artery without angina pectoris Atrial fibrillation Thomas's palsy Cerebral infarction due to embolism of right middle cerebral artery (11/2023) failed mechanical thrombectomy status post hemicraniectomy for edema residual left hemiplegia Chronic anticoagulation Depression Diaphragmatic hernia without obstruction or gangrene Diastolic heart failure Endometrial cancer Fatty liver Flaccid hemiplegia affecting left nondominant side Gastroesophageal reflux disease Hyperlipidemia Hypertension Left bundle-branch block, unspecified Type 2 diabetes mellitus Vaginal bleeding Surgical History Surgical History (Updated 09/09/24 @ 23:37 by Layne Hutchison PA-C) History of cholecystectomy History of colonoscopy before 2020 History of craniotomy right Family History Family History (Reviewed 09/10/24 @ 01:50 CDT by Sharon Rangel RN) Other Family history non-contributory Social History Social History (Updated 09/09/24 @ 23:38 by Layne Hutchison PA-C) Social History: Surrogate medical decision maker: Fernandez Wiggins ([phone]), son. Code status: Full code. Smoking status: Never smoker Second hand tobacco smoke exposure: No Alcohol intake: never Substance use: never Do You Feel Safe in your Home?: No Lack of Transportation: No Lack of Food: Never True Current Housing: I Have Housing Concerned About Future Housing: No Difficulty Paying Gas/Electric Bills: No Difficulty Paying for Meds: No Currently Unemployed: No Education: Decline to Answer Difficulty w/ Childcare or Family Care: No Living arrangements: [facility] Additional living arrangements comments: [place] since 04/25/24. Spiritual care concerns: No Meds Home Medications and Allergies Home Medications Medication Instructions Recorded Confirmed Type acetaminophen 325 mg tablet 650 mg PO Q4H PRN Fever Or Pain 12/19/23 09/09/24 History albuterol sulfate 90 mcg/actuation 2 puff inhalation Q4H PRN Wheezing 12/19/23 09/09/24 History aerosol inhaler apixaban 5 mg tablet 5 mg PO BID 12/19/23 09/09/24 History aspirin 81 mg tablet,delayed 81 mg PO DAILY 12/19/23 09/09/24 History release atorvastatin 40 mg tablet 40 mg PO HS 12/19/23 09/09/24 History calcium 600 mg (as 1 tablet PO BID 12/19/23 09/09/24 History carbonate)-vitamin D3 10 mcg (400 unit) tablet (Calcium with Vitamin D) cholecalciferol (vitamin D3) 25 25 mcg PO BID 12/19/23 09/10/24 History mcg (1,000 unit) tablet ferrous sulfate 325 mg (65 mg 325 mg PO QACBREAK 12/19/23 09/09/24 History iron) tablet melatonin 3 mg tablet 3 mg PO HS 12/19/23 09/10/24 History metoprolol succinate 25 mg 25 mg PO BID 12/19/23 09/09/24 History tablet,extended release 24 hr polyethylene glycol 3350 17 gram 17 g PO DAILY 12/19/23 09/09/24 History oral powder packet sertraline 50 mg tablet (Zoloft) 50 mg PO QAM 30 days #30 tabs 01/07/24 09/09/24 Rx docusate sodium 100 mg capsule 100 mg PO BID 09/09/24 09/10/24 History hydroxyzine pamoate 50 mg capsule 50 mg PO Q8H PRN anxiety 09/09/24 09/09/24 History melatonin 5 mg capsule 5 mg PO QHS 09/09/24 09/10/24 History pantoprazole 40 mg tablet,delayed 40 mg PO BID 09/09/24 09/09/24 History release tramadol 50 mg tablet 50 mg PO Q8H PRN Pain 09/09/24 09/10/24 History Allergies Allergy/AdvReac Type Severity Reaction Status Date / Time codeine Allergy Unknown HIVES, Verified 09/10/24 00:08 VOMITING nitrofurantoin Allergy Rash Verified 09/10/24 00:08 [From Macrobid] strawberry Allergy Hives Verified 09/10/24 00:08 Sulfa (Sulfonamide AdvReac Other Verified 09/10/24 00:08 Antibiotics) Vital Signs Vital Signs - 24 hr 09/09/24 16:02 09/09/24 20:57 09/09/24 21:13 Temperature 97.8 F 97.2 F L Pulse Rate 82 89 97 Respiratory Rate 16 19 19 Blood Pressure 126/72 117/81 139/78 Pulse Oximetry 98 94 96 Oxygen Delivery 09/09/24 21:44 09/09/24 22:13 09/10/24 00:09 Temperature 97.9 F 97.5 F L 98.2 F Pulse Rate 88 86 77 Respiratory Rate 15 19 18 Blood Pressure 129/79 130/72 149/69 H Pulse Oximetry 96 96 100 Oxygen Delivery 09/10/24 00:11 09/10/24 00:00 09/10/24 02:15 Temperature 98.2 F Pulse Rate 77 78 Respiratory Rate 18 Blood Pressure 149/69 H Pulse Oximetry 100 Oxygen Delivery Room Air 09/10/24 04:00 09/10/24 06:00 09/10/24 06:00 Temperature 97.6 F 97.6 F Pulse Rate 84 74 74 Respiratory Rate 16 16 Blood Pressure 118/61 118/61 Pulse Oximetry 94 94 Oxygen Delivery 09/10/24 06:05 09/10/24 09:08 Temperature 97.1 F L Pulse Rate 81 74 Respiratory Rate 18 Blood Pressure 136/83 Pulse Oximetry 96 Oxygen Delivery Exam Const: General: comfortable and no acute distress HENMT: Other: s/p R sided hemicraniectomy Eyes: General: appearance normal, both eyes and all related structures Neck: Neck: supple Resp: Auscultation: clear to auscultation bilaterally Cardio: Rate: regular rate Rhythm: regular rhythm GI: Inspection: non-distended GI Palp: Yes Soft to palpation and No Tenderness to palpation present (GI) Auscultation: normal bowel sounds Skin: General skin exam: normal color Neuro: Speech: normal speech Other: left sided hemiparesis Extrem: General: normal to inspection Psych: Mental Status: mental status grossly normal Results Labs 09/10/24 01:29 JUNIOR ACCOUNT EXECUTIVE 09/10/24 01:29 JUNIOR ACCOUNT EXECUTIVE Labs: Short CBC 09/09/24 09/10/24 09/10/24 Range/Units 17:14 01:29 JUNIOR ACCOUNT EXECUTIVE 01:29 JUNIOR ACCOUNT EXECUTIVE WBC 7.8 6.9 (4.5-10.0) K/mm3 Hgb 6.8 L* D 7.8 L Cancelled (12.0-15.0) g/dL Hct 23.4 L 25.1 L (37.0-47.0) % Plt Count 183 (150-375) k/mm3 09/10/24 Range/Units 01:29 JUNIOR ACCOUNT EXECUTIVE WBC (4.5-10.0) K/mm3 Hgb (12.0-15.0) g/dL Hct Cancelled (37.0-47.0) % Plt Count 155 (150-375) k/mm3 BMP 09/09/24 09/10/24 17:14 01:29 JUNIOR ACCOUNT EXECUTIVE Sodium 140 142 Potassium 3.7 3.1 L Chloride 104 104 Carbon Dioxide 29 28 BUN 24 H D 21 H Creatinine 0.60 L 0.60 L Glucose 109 81 Calcium 9.3 9.2 Cardiac Enzymes 09/09/24 Range/Units 23:14 Troponin I < 0.012 (0.000-0.034) ng/mL Liver Function 09/09/24 Range/Units 17:14 Total Bilirubin 0.2 (0.2-1.3) mg/dL AST 18 (14-36) U/L ALT 12 (6-35) U/L Alkaline Phosphatase 64 (38-126) U/L Albumin 4.1 (3.5-5.1) g/dL Urine 09/09/24 Range/Units 19:49 Urine Color Yellow (Yellow) Urine Appearance Clear (Clear) Urine pH 6.5 (5.0-9.0) Ur Specific [place] > 1.045 H (1.001-1.035) Urine Protein Trace (Negative) mg/dL Urine Glucose (UA) Negative (Negative) mg/dL
[2024-09-10] MEDS: BISACODYL 5 MG TABLET EC 20 MG PO (18:15)
[2024-09-10] MEDS: polyethylene glycoL 3350 238 GM BOTTLE PO (18:15)
[2024-09-11] VITALS (13 sets, daily range): BP systolic 106–156; BP diastolic 64–76; PULSE 60–87; RESP 13–20; TEMP 36.3–36.7; O2SAT 93–100
[2024-09-11] MEDS: traMADol HCL (*CRX) 50 MG TABLET PO ×2 (00:28→21:22)
[2024-09-11] MEDS: MAGNESIUM CITRATE 300 ML BTL PO (00:28)
[2024-09-11] MEDS: IRON SUCROSE COMPLEX 100 MG in SODIUM CHLORIDE 0.9% IV 50 ML 220 MG IVPB (09:44)
--- NOTE | 2024-09-11 10:55 | PC.NURSE ---
GI lab picked up pt via stretcher to transport her to GI lab for EGD and colonoscopy.
--- NOTE | 2024-09-11 11:16 | WPDANESEPPF ---
Anes - Initial Pre Proc Eval Procedure: Operation Date: 09/11/24 13:30 Proposed Procedures p Esophagogastroduodenoscopy & Colonoscopy - Aryan Ott MD Date/Time: 09/11/24 11:16 Surgeon: Yohannes Schumacher MD Pre Op Diagnosis: anemia requiring transfusion;GIB due to diverticu Patient Data Age: 64 Gender: F Height: 1.63 m Weight: 69.8 kg Last Vital Signs Temp 36.7 C 09/11/24 05:43 Pulse 68 09/11/24 08:04 Resp 16 09/11/24 05:43 BP 149/71 H 09/11/24 05:43 Pulse Ox 96 09/11/24 05:43 O2 Del Method Room Air 09/10/24 09:00 Allergies Allergy/AdvReac Type Severity Reaction Status Date / Time codeine Allergy Unknown HIVES, Verified 09/10/24 00:08 VOMITING nitrofurantoin Allergy Rash Verified 09/10/24 00:08 [From Macrobid] strawberry Allergy Hives Verified 09/10/24 00:08 Sulfa (Sulfonamide AdvReac Other Verified 09/10/24 00:08 Antibiotics) Home Medications Medication Instructions Recorded Confirmed Type acetaminophen 325 mg tablet 650 mg PO Q4H PRN Fever Or Pain 12/19/23 09/09/24 History albuterol sulfate 90 mcg/actuation 2 puff inhalation Q4H PRN Wheezing 12/19/23 09/09/24 History aerosol inhaler apixaban 5 mg tablet 5 mg PO BID 12/19/23 09/09/24 History aspirin 81 mg tablet,delayed 81 mg PO DAILY 12/19/23 09/09/24 History release atorvastatin 40 mg tablet 40 mg PO HS 12/19/23 09/09/24 History calcium 600 mg (as 1 tablet PO BID 12/19/23 09/09/24 History carbonate)-vitamin D3 10 mcg (400 unit) tablet (Calcium with Vitamin D) cholecalciferol (vitamin D3) 25 25 mcg PO BID 12/19/23 09/10/24 History mcg (1,000 unit) tablet ferrous sulfate 325 mg (65 mg 325 mg PO QACBREAK 12/19/23 09/09/24 History iron) tablet melatonin 3 mg tablet 3 mg PO HS 12/19/23 09/10/24 History metoprolol succinate 25 mg 25 mg PO BID 12/19/23 09/09/24 History tablet,extended release 24 hr polyethylene glycol 3350 17 gram 17 g PO DAILY 12/19/23 09/09/24 History oral powder packet sertraline 50 mg tablet (Zoloft) 50 mg PO QAM 30 days #30 tabs 01/07/24 09/09/24 Rx docusate sodium 100 mg capsule 100 mg PO BID 09/09/24 09/10/24 History hydroxyzine pamoate 50 mg capsule 50 mg PO Q8H PRN anxiety 09/09/24 09/09/24 History melatonin 5 mg capsule 5 mg PO QHS 09/09/24 09/10/24 History pantoprazole 40 mg tablet,delayed 40 mg PO BID 09/09/24 09/09/24 History release tramadol 50 mg tablet 50 mg PO Q8H PRN Pain 09/09/24 09/10/24 History Patient hx anesthesia problems: none Family hx anesthesia problems: none Results Review: All pre-operative results and documents have been reviewed as part of the pre-operative evaluation. [facility] Past Medical History Medical History Anxiety Atherosclerotic heart disease of [place] coronary artery without angina pectoris Atrial fibrillation Thomas's palsy Cerebral infarction due to embolism of right middle cerebral artery (11/2023) failed mechanical thrombectomy status post hemicraniectomy for edema residual left hemiplegia Chronic anticoagulation Depression Diaphragmatic hernia without obstruction or gangrene Diastolic heart failure Endometrial cancer Fatty liver Flaccid hemiplegia affecting left nondominant side Gastroesophageal reflux disease Hyperlipidemia Hypertension Left bundle-branch block, unspecified Type 2 diabetes mellitus Vaginal bleeding Surgical History Surgical History History of cholecystectomy History of colonoscopy before 2020 History of craniotomy right Family History Family History Other Family history non-contributory Social History Social History Social History: Surrogate medical decision maker: Fernandez Wiggins ([phone]), son. Code status: Full code. Smoking status: Never smoker Second hand tobacco smoke exposure: No Alcohol intake: never Substance use: never Do You Feel Safe in your Home?: No Lack of Transportation: No Lack of Food: Never True Current Housing: I Have Housing Concerned About Future Housing: No Difficulty Paying Gas/Electric Bills: No Difficulty Paying for Meds: No Currently Unemployed: No Education: Decline to Answer Difficulty w/ Childcare or Family Care: No Living arrangements: correction Additional living arrangements comments: [facility] [place] since 04/25/24. Spiritual care concerns: No Anes - Eval Final PreProcedure Day of Procedure 09/11/24 11:16 Patient weight: overweight Heart: regular rate and rhythm Lungs: clear to auscultation Airway: Mallampati scale class II Neurological: dysarthria Last oral intake: >/= 8 hours ASA classification: IV Emergent: no Anesthetic plan: proceed Anesthesia type and monitoring: general GIVS and standard monitoring Results Review: All pre-operative results and documents have been reviewed as part of the pre-operative evaluation. Informed Consent: The patient's anesthetic plan and its attendant risks and benefits were discussed with the patient/family/POA. Questions were solicited and answers provided to the satisfaction of the patient/family/POA.
--- NOTE | 2024-09-11 11:19 | P.PNIM_ITS ---
Progress Note: A&P Assessment and Plan (1) Syncope: Code(s): R55 - Syncope and collapse Status: Acute Assessment and Plan: * Likely secondary to GI bleeding * GI consulted and following * ECHO shown normal LV systolic function with an estimated EF of 60-65%, essentially normal * continue cardiac monitoring (2) Symptomatic anemia: Code(s): D64.9 - Anemia, unspecified Status: Acute Assessment and Plan: * Received 1 unit PRBC * GI consulted * Plan for EGD and Colonoscopy today * Continue to trend Hgb * Continue venofer daily (3) Urinary tract infection: Code(s): N39.0 - Urinary tract infection, site not specified Status: Acute Assessment and Plan: * UA shown a urine specific gravity of > 1.045, trace ketones, 3+ urine blood, positive urine nitrates, 1+ leukocytes, 21-50 urine RBC, 51-100 urine WBC, 4+ bacteria * Urine culture showing E coli on preliminary read * Continue Rocephin (4) Atrial fibrillation: Code(s): I48.91 - Unspecified atrial fibrillation Status: Acute Assessment and Plan: * continue Metoprolol * Continue to hold Apixaban (5) Gastroesophageal reflux disease: Code(s): K21.9 - Gastro-esophageal reflux disease without esophagitis Status: Acute Assessment and Plan: * continue protonix Time Spent With Patient Time with patient: Greater than 35 minutes Subjective Date/time seen: 09/11/24 11:19 Interval history: Interval history: This is a 64 year old female who presented to the hospital on 09/09/24 with complaints of nausea, vomiting, and syncope. She was found to have a low hgb of 6.8 requiring blood transfusion.. She also had a positive UA and UC was sent. GI was consulted. She was started on Rocephin. Subjective: Patient denies any fever, chills, nausea, vomiting, diarrhea, abdominal pain, chest pain, or shortness of breath. Labs and imaging reviewed Review of Systems Review of Systems: All systems reviewed & are unremarkable except as noted in HPI and below Constitutional: Constitutional: Reports as per HPI and Reports no additional constitutional complaints Eyes: Eyes: Reports as per HPI and Reports no additional eye complaints ENT: Reports system reviewed and no additional complaints, except as documented and Reports as per HPI Cardiovascular: Cardiovascular: Reports as per HPI and Reports no additional cardiovascular complaints Respiratory: Respiratory: Reports as per HPI and Reports no additional respiratory complaints Gastrointestinal: Gastrointestinal: Reports as per HPI and Reports no additional gastrointestinal complaints Genitourinary: Genitourinary: Reports no additional female genitourinary complaints and Reports as per HPI Musculoskeletal: Musculoskeletal: Reports no additional musculoskeletal complaints and Reports as per HPI Integumentary/Breasts: Skin/Breast: Reports system reviewed and no additional complaints, except as docu and Reports as per HPI Neurologic: Reports system reviewed and no additional complaints, except as documented and Reports as per HPI Psychiatric: Psychiatric: Reports no additional psychiatric complaints and Re ports as per HPI Exam Narrative: General: In no acute distress, well nourished Head: atraumatic, no encephalopathy, 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 No murmur, gallops or friction rubs, peripheral pulses intact. Respiratory: Lungs clear to auscultation, no adventitious lung sounds, currently on room air Gastrointestinal: soft, non-distended, non-tender, normoactive bowel sounds. : voiding without difficulty. Extremities: moves all extremities well, no edema Skin: clean, dry, intact. No wounds or lesions. Neuro: Alert and oriented x4, cranial nerves intact, no neuro deficits. Psych: normal mood, normal affect, interactive Objective Data Vital Signs Vital Signs: Vital Signs - 24 hr 09/10/24 14:57 09/10/24 16:04 09/10/24 12:05 Temperature 98.3 F Pulse Rate 70 68 73 Respiratory Rate 16 Blood Pressure 160/95 H Pulse Oximetry 100 09/10/24 20:00 09/10/24 21:02 09/11/24 05:43 Temperature 97.9 F 97.9 F 98.1 F Pulse Rate 68 59 L 62 Respiratory Rate 18 18 16 Blood Pressure 158/79 H 161/81 H 149/71 H Pulse Oximetry 98 98 96 09/10/24 20:00 09/11/24 00:00 09/11/24 04:00 Temperature Pulse Rate 67 60 68 Respiratory Rate Blood Pressure Pulse Oximetry 09/11/24 08:04 Temperature Pulse Rate 68 Respiratory Rate Blood Pressure Pulse Oximetry Intake/Output Intake/Output: Intake & Output 09/09/24 09/10/24 09/10/24 09/11/24 00:59 00:59 23:59 23:59 Intake Total 1920 Output Total 500 Balance 1420 Meds/Results Medications: Active Medications Generic Name Dose Route Start Last Admin Trade Name Freq PRN Reason Stop Dose Admin Acetaminophen 650 mg 09/10/24 01:31 COUNTER CLERK Acetaminophen 325 Mg Tablet PO Q4H PRN Pain Rated 1-3 or Fever Albuterol 2 puff 09/10/24 01:31 COUNTER CLERK Albuterol Sulfate (*Sp) Aerosol 1 Puff INHALATION Q4H PRN Wheezing Atorvastatin Calcium 40 mg 09/10/24 01:40 COUNTER CLERK 09/10/24 20:55 Atorvastatin 40 Mg Tablet PO 40 mg HS FROY Administration Calcium Carbonate 500 mg 09/10/24 09:00 09/11/24 08:39 Calcium/Vitamin D 500 Mg/5 Mcg (200 I.U.) Tablet PO Not Given BID FROY Dextrose 12.5 gm 09/09/24 23:48 Dextrose 50% 25 Gm/50 Ml Syringe IV PUSH PRN PRN Hypoglycemia Protocol Ferrous Sulfate 325 mg 09/10/24 08:00 09/11/24 08:39 Ferrous Sulfate [address] BY MOUTH Not Given DAILY@0800 FROY Glucagon 1 mg 09/09/24 23:48 Glucagon For Inj 1 Mg Vial IM PRN PRN Hypoglycemia Protocol Glucose 15 gm 09/09/24 23:48 Glucose Oral Gel 15 Gm Of Glucse In 37.5 Gm Tube PO PRN PRN Hypoglycemia Protocol Hydroxyzine Pamoate 50 mg 09/10/24 02:21 Hydroxyzine Pamoate 25 Mg Capsule PO Q8H PRN anxiety Dextrose 1,000 mls @ 100 mls/hr 09/09/24 23:48 Dextrose 5% 1,000 Ml IVPB PRN PRN Hypoglycemia Protocol Ceftriaxone Sodium 1 gm in 50 mls @ 100 mls/hr 09/10/24 00:00 09/11/24 00:29 Rocephin 1 Gm/Ns 50 Ml IVPB 100 mls/hr Q24H FROY Administration Iron Sucrose 100 mg/ Sodium 55 mls @ 220 mls/hr 09/10/24 10:00 09/11/24 09:44 Chloride IVPB 220 mls/hr DAILY FROY Administration Melatonin 3 mg 09/10/24 01:40 COUNTER CLERK 09/10/24 20:55 Melatonin 3 Mg Tablet PO 3 mg HS [facility] Administration Melatonin 5 mg 09/10/24 01:35 COUNTER CLERK 09/10/24 20:55 Melatonin 5 Mg Tablet PO 5 mg QHS [facility] Administration Metoprolol Succinate 25 mg 09/10/24 09:00 09/11/24 08:40 Metoprolol Succinate Ext Rel 25 Mg Tabcr PO Not Given Q12HR [facility] Ondansetron HCl 4 mg 09/09/24 20:17 Ondansetron Inj 4 Mg/2 Ml Vial IV PUSH Q4H PRN Nausea Pantoprazole Sodium 40 mg 09/10/24 09:00 09/11/24 08:40 Pantoprazole 40 Mg Tablet PO Not Given BID [facility] Perflutren Lipid Microsphere 0 ml 09/09/24 23:48 Perflutren Lipid Microspheres 1.5 Ml Vial Diluted To 10 Ml Total Volume IV PUSH 09/12/24 23:48 ONCE PRN adequate visualization Protocol Sertraline HCl 50 mg 09/10/24 09:00 09/11/24 08:40 Sertraline Hcl 50 Mg Tablet PO Not Given QAM [facility] Tramadol HCl 50 mg 09/10/24 01:31 COUNTER CLERK 09/11/24 00:28 Tramadol Hcl (*Crx) 50 Mg Tablet PO 50 mg Q8H PRN Administration Pain 4-6 Vitamin D 1,000 units 09/10/24 09:00 09/11/24 08:39 Cholecalciferol 1,000 Units Tablet PO Not Given BID [facility] Radiology Results: ITS Impressions Abdomen X-Ray 09/09/24 15:43 IMPRESSION: No significant stool burden; no bowel obstruction Abdomen/Pelvis CT 09/09/24 18:57 IMPRESSION: Occasional colonic diverticula; no CT evidence of diverticulitis Normal appendix 3 mm right renal cyst Status post cholecystectomy Uterine fibroids 2.4 x 5.5 cm left parasagittal ventral abdominal wall fat herniation Cardiomegaly Quality VTE Prophylaxis VTE prophylaxis: mechanical ordered
[2024-09-11] MEDS: LACTATED RINGERS 1,000 ML 150 ML IV CONT (11:25)
--- NOTE | 2024-09-11 11:40 | SUR.OPER ---
EGD start 1128 end 3334, Colonoscopy start 1134
--- NOTE | 2024-09-11 11:52 | SUR.OPER ---
2nd transverse colon polyp not retrieved, Dr Landa aware.
--- NOTE | 2024-09-11 12:30 | PC.NURSE ---
pt returns to floor from GI lab.
[2024-09-11] MEDS: PANTOPRAZOLE 40 MG TABLET PO (16:06)
[2024-09-11] MEDS: CHOLECALCIFEROL 1,000 UNITS TABLET 1000 UNITS PO (16:06)
[2024-09-11] MEDS: CALCIUM/VITAMIN D 500 MG/5 MCG (200 I.U.) TABLET PO (16:06)
[2024-09-11] MEDS: ACETAMINOPHEN 325 MG TABLET 650 MG PO (16:07)
[2024-09-11] MEDS: METOPROLOL SUCCINATE EXT REL 25 MG TABCR PO (20:15)
[2024-09-11] MEDS: ATORVASTATIN 40 MG TABLET PO (20:16)
[2024-09-11] MEDS: MELATONIN 3 MG TABLET PO (20:16)
[2024-09-11] MEDS: MELATONIN 5 MG TABLET PO (20:16)
--- NOTE | 2024-09-11 23:48 | ECHO_ITS ---
Patient Info Name: Zaira Cason Age: 64 years : 1960 Gender: Female Ht: 64 in Wt: 146 lbs BSA: 1.74 m2 HR: 63 bpm BP: 149 / 71 mmHg Heart Rhythm: Sinus Rhythm Technical Quality: Good Exam Date: 09/11/2024 9:48 AM Exam Location: Echo Lab Patient Status: Inpatient Admit Date: 09/09/2024 Staff Ordering Physician: Layne Hutchison PA-C Proof Technician: Doris Almendarez RDCS Attending Provider: Yohannes Schumacher MD Referring Physician: Foster HO; Exam Type: CA echo doppler color flow Study Info Indications - cp, a fib Complete two-dimensional, color flow and Doppler transthoracic echocardiogram is performed. Summary 1. Complete two-dimensional, color flow and Doppler transthoracic echocardiogram is performed. 2. The left ventricle is normal in size. There is left ventricular concentric remodeling. The Left ventricular systolic function is normal. The LVEF is visually estimated to be 60-65%. 3. The right ventricle is normal in size and systolic function. Left Ventricle The left ventricle is normal in size. There is left ventricular concentric remodeling. The Left ventricular systolic function is normal. The LVEF is visually estimated to be 60-65%. Right Ventricle The right ventricle is normal in size and systolic function. Left Atria The left atrium is normal in size. Right Atria The right atrium is normal in size. Aortic Valve The aortic valve is trileaflet and opens well. There is no aortic regurgitation. Pulmonic Valve The pulmonic valve is grossly normal. There is trace pulmonic regurgitation. Mitral Valve The mitral valve is sclerotic. There is trace mitral regurgitation. Tricuspid Valve The tricuspid valve is normal. There is trace tricuspid regurgitation. Pericardium/Pleural Prominent epicardial fat pad. Inferior Vena Cava Normal inferior vena cava with <50% collapse upon inspiration consistent with elevated right atrial pressure, 10 mmHg. Aorta The aortic root at the level of the sinus of Valsalva measures 2.7 cm in diameter. Left Ventricular Outflow Tract Name Value Normal LVOT 2D LVOT Diameter 2.1 cm LVOT Doppler LVOT Peak Gradient 2 mmHg LVOT Mean Gradient 1 mmHg LVOT VTI 12 cm LVOT VTI/AV VTI Ratio 0.4 LVOT Stroke Volume 39 ml LVOT CO 3.0 l/min LVOT CI 1.7 l/min/m2 Mitral Valve Name Value Normal MV Doppler MV Decel Ida 326 cm/s2 MV PHT 57 ms MV Area (PHT) 3.9 cm2 4.0-5.0 MV Diastolic Function MV E Peak Velocity 64 cm/s MV A Peak Velocity 83 cm/s MV E/A 0.8 MV Decel Time 195 ms MV Annular TDI MV E/e' (Septal) 8.2 <=8.0 MV E/e' (Lateral) 10.4 <=8.0 MV E/e' (Average) 9.3 Tricuspid Valve Name Value Normal TV Regurgitation Doppler TR Peak Velocity 183 cm/s TR Peak Gradient 12 mmHg Estimated PAP/RSVP RA Pressure 10 mmHg <=5 PA Systolic Pressure 23 mmHg <36 RV Systolic Pressure 23 mmHg <36 Aortic Valve Name Value Normal AV Doppler AV Peak Velocity 132 cm/s AV Peak Gradient 7 mmHg AV Mean Gradient 5 mmHg AV VTI 29 cm AV Area (Cont Eq VTI) 1.4 cm2 >=3.0 AV Area (Cont Eq Arnoldo) 1.9 cm2 AV Regurgitation 2D LVOT Area 3.4 cm2 Ventricles Name Value Normal LV Dimensions 2D/MM IVS Diastolic Thickness (2D) 1.1 cm 0.6-1.0 LVID Diastole (2D) 4.2 cm 3.8-5.2 LVIW Diastolic Thickness (2D) 1.1 cm 0.6-0.9 LVID Systole (2D) 2.7 cm 2.2-3.5 LVOT Diameter 2.1 cm LV Mass (2D Cubed) 159.16 g 67.00-162.00 LV Mass Index (2D Cubed) 91 g/m2 43-95 Relative Wall Thickness (2D) 0.51 LV Fractional Shortening/Ejection Fraction 2D/MM LV Fractional Shortening (2D) 35 % 27-45 LV EF (2D Teicholz) 65 % 54-74 LV Diastolic Volume (4C MOD) 93 ml LV EF (4C MOD) 61 % LV Diastolic Volume (2C MOD) 68 ml LV EF (2C MOD) 59 % LV Diastolic Volume (BP MOD) 81 ml 46-106 LV Diastolic Volume Index (BP MOD) 47 ml/m2 29-61 LV Systolic Volume (BP MOD) 32 ml 14-42 LV Systolic Volume Index (BP MOD) 18 ml/m2 8-24 LV EF (BP MOD) 61 % 54-74 LV Diastolic Length (4C) 7.4 cm LV Systolic Length (4C) 5.9 cm LV Stroke Volume (4C MOD) 57 ml Atria Name Value Normal LA Dimensions LA Volume (4C A-L) 22 ml LA Volume (BP A-L) 20 ml RA Dimensions RA Area (4C) 7.5 cm2 <=18.0 Report Signatures
[2024-09-12] VITALS (10 sets, daily range): BP systolic 131–146; BP diastolic 69–94; PULSE 65–80; RESP 16–18; TEMP 36.1–37.1; O2SAT 96–97
[2024-09-12] MEDS: PANTOPRAZOLE 40 MG TABLET PO ×2 (08:35→17:18)
[2024-09-12] MEDS: CHOLECALCIFEROL 1,000 UNITS TABLET 1000 UNITS PO ×2 (08:35→17:18)
[2024-09-12] MEDS: CALCIUM/VITAMIN D 500 MG/5 MCG (200 I.U.) TABLET PO ×2 (08:35→17:18)
[2024-09-12] MEDS: SERTRALINE HCL 50 MG TABLET PO (08:35)
[2024-09-12] MEDS: FERROUS SULFATE 325 MG TABLET DR BY MOUTH (08:35)
[2024-09-12] MEDS: ACETAMINOPHEN 325 MG TABLET 650 MG PO ×2 (08:36→20:43)
[2024-09-12] MEDS: IRON SUCROSE COMPLEX 100 MG in SODIUM CHLORIDE 0.9% IV 50 ML 220 MG IVPB (08:37)
[2024-09-12] MEDS: METOPROLOL SUCCINATE EXT REL 25 MG TABCR PO ×2 (08:37→19:59)
--- NOTE | 2024-09-12 09:42 | PM.IMPN ---
Progress Note: A&P Assessment and Plan (1) Syncope: Code(s): R55 - Syncope and collapse Status: Acute (2) Symptomatic anemia: Code(s): D64.9 - Anemia, unspecified Status: Acute (3) Uterine fibroid: Code(s): D25.9 - Leiomyoma of uterus, unspecified Status: Acute (4) Urinary tract infection: Code(s): N39.0 - Urinary tract infection, site not specified Status: Acute (5) Atrial fibrillation: Code(s): I48.91 - Unspecified atrial fibrillation Status: Acute (6) Chronic anticoagulation: Code(s): Z79.01 - correction (current) use of anticoagulants Status: Acute (7) Vaginal bleeding: Code(s): N93.9 - Abnormal uterine and vaginal bleeding, unspecified Status: Acute (8) Anxiety: Code(s): F41.9 - Anxiety disorder, unspecified Status: Acute (9) Depression: Code(s): F32.A - Depression, unspecified Status: Acute Plan Syncope Unclear etiologies, possible due to hypotension, anemia, Continue telemetry monitoring, no significant arrhythmia so far Pending echocardiogram Neuro check Orthostatic test Severe anemia, possible acute blood loss anemia Hemoglobin 6.8, received transfusion Hemoglobin 14.2 on March 20, 2024, Follow-up hemoglobin q.6 hours Transfuse p.r.n. Iron deficiency, Iron 24, saturation 6 %, starting 6.52 Start Venofer 100 mg daily IV Acute GI her stool was Hemoccult negative on rectal exam however suspicions are for occult GI bleeding and Dr. Landa has been consulted. Continue PPI. EGD showed dieulafoy lesion and oozing blood, daily agent was occult rest Colonoscopy revealed 2 polyps that were removed UTI Continue ceftriaxone for suspected urinary tract infection, pending culture. AFib She is in rate controlled atrial fibrillation. Hold aspirin and Eliquis Type 2 diabetes Hold metformin as she received contrast. Initiate sliding scale insulin, Accu-Cheks, and hypoglycemic protocol. Check hemoglobin A1c. Patient [facility], resident care associate is working for new placement Subjective Date/time seen: 09/12/24 09:42 Interval history: I saw exam patient today, patient denies abdomen pain, nausea vomiting. Patient also denies chest pain. Labs reviewed, hemoglobin 8.5, yesterday through a 7.8 Exam Narrative: GENERAL: Pleasant, in no acute distress. Well-nourished. - EYES: EOMI. Anicteric. - HENT: Moist mucous membranes. - LUNGS: Clear to auscultation bilaterally, no wheezing, rhonchi, or rales. - CARDIOVASCULAR: Regular rate and rhythm. No murmur. No JVD. - ABDOMEN: Soft, non-tender and non-distended. No palpable masses. - EXTREMITIES: No edema. Peripheral pulses 2+. Non-tender. - NEUROLOGIC: No focal neurological deficits. CN II-XII grossly intact. Paralyses of left-sided body, unable to move left arm and leg - PSYCHIATRIC: Awake, Alert and oriented x 3. Appropriate mood and affect. - SKIN: No rashes or lesions. Warm. - LYMPH: No cervical lymphadenopathy. Objective Data Vital Signs Vital Signs: Vital Signs - 24 hr 09/11/24 09:45 09/11/24 11:24 09/11/24 11:52 Temperature 97.3 F L Pulse Rate 63 69 Respiratory Rate 18 13 Blood Pressure 125/73 106/64 Pulse Oximetry 97 98 Oxygen Delivery Room Air Room Air Room Air 09/11/24 12:02 09/11/24 12:12 09/11/24 14:00 Temperature 97.8 F Pulse Rate 86 76 62 Respiratory Rate 20 17 16 Blood Pressure 118/66 156/69 H 148/76 H Pulse Oximetry 100 97 93 Oxygen Delivery Room Air Room Air 09/11/24 16:04 09/11/24 19:59 09/11/24 20:00 Temperature 98.1 F 98.1 F Pulse Rate 87 84 78 Respiratory Rate 16 18 Blood Pressure 124/68 122/67 Pulse Oximetry 96 95 Oxygen Delivery 09/11/24 20:15 09/11/24 20:19 09/11/24 20:00 Temperature Pulse Rate 87 79 Respiratory Rate Blood Pressure Pulse Oximetry Oxygen Delivery Room Air 09/12/24 00:00 09/12/24 04:00 09/12/24 06:00 Temperature 98.2 F Pulse Rate 73 66 65 Respiratory Rate 16 Blood Pressure 131/94 H Pulse Oximetry 97 Oxygen Delivery 09/12/24 08:37 09/12/24 08:30 Temperature Pulse Rate 68 Respiratory Rate Blood Pressure Pulse Oximetry Oxygen Delivery Room Air Intake/Output Intake/Output: Intake & Output 09/10/24 09/10/24 09/11/24 09/12/24 00:59 23:59 23:59 23:59 Intake Total 3085 1490 Output Total 500 550 Balance 9473 940 Meds/Results Medications: Active Medications Generic Name Dose Route Start Last Admin Trade Name Freq PRN Reason Stop Dose Admin Acetaminophen 650 mg 09/10/24 01:31 [employer]ANT [employer]ER TEACHER 09/12/24 08:36 Acetaminophen 325 Mg Tablet PO 650 mg Q4H PRN Administration Pain Rated 1-3 or Fever Albuterol 2 puff 09/10/24 01:31 [employer]ER Albuterol Sulfate (*Sp) Aerosol 1 Puff INHALATION Q4H PRN Wheezing Atorvastatin Calcium 40 mg 09/10/24 01:40 [employer]ER TEACHER 09/11/24 20:16 Atorvastatin 40 Mg Tablet PO 40 mg HS FROY Administration Calcium Carbonate 500 mg 09/10/24 09:00 09/12/24 08:35 Calcium/Vitamin D 500 Mg/5 Mcg (200 I.U.) Tablet PO 500 mg BID FROY Administration Dextrose 12.5 gm 09/09/24 23:48 Dextrose 50% 25 Gm/50 Ml Syringe IV PUSH PRN PRN Hypoglycemia Protocol Ferrous Sulfate 325 mg 09/10/24 08:00 09/12/24 08:35 Ferrous Sulfate [address] BY MOUTH 325 mg DAILY@0800 FROY Administration Glucagon 1 mg 09/09/24 23:48 Glucagon For Inj 1 Mg Vial IM PRN PRN Hypoglycemia Protocol Glucose 15 gm 09/09/24 23:48 Glucose Oral Gel 15 Gm Of Glucse In 37.5 Gm Tube PO PRN PRN Hypoglycemia Protocol Hydroxyzine Pamoate 50 mg 09/10/24 02:21 Hydroxyzine Pamoate 25 Mg Capsule PO Q8H PRN anxiety Dextrose 1,000 mls @ 100 mls/hr 09/09/24 23:48 Dextrose 5% 1,000 Ml IVPB PRN PRN Hypoglycemia Protocol Ceftriaxone Sodium 1 gm in 50 mls @ 100 mls/hr 09/10/24 00:00 09/12/24 01:23 Rocephin 1 Gm/Ns 50 Ml IVPB Infused Q24H FROY Infusion Iron Sucrose 100 mg/ Sodium 55 mls @ 220 mls/hr 09/10/24 10:00 09/12/24 08:37 Chloride IVPB 220 mls/hr DAILY FROY Administration Melatonin 3 mg 09/10/24 01:40 [employer]ER 09/11/24 20:16 Melatonin 3 Mg Tablet PO 3 mg HS FROY Administration Melatonin 5 mg 09/10/24 01:35 [employer]ER TE[employer]ER 09/11/24 20:16 Melatonin 5 Mg Tablet PO 5 mg QHS FROY Administration Metoprolol Succinate 25 mg 09/10/24 09:00 09/12/24 08:37 Metoprolol Succinate Ext Rel 25 Mg Tabcr PO 25 mg Q12HR FROY Administration Ondansetron HCl 4 mg 09/09/24 20:17 Ondansetron Inj 4 Mg/2 Ml Vial IV PUSH Q4H PRN Nausea Pantoprazole Sodium 40 mg 09/10/24 09:00 09/12/24 08:35 Pantoprazole 40 Mg Tablet PO 40 mg BID FROY Administration Perflutren Lipid Microsphere 0 ml 09/09/24 23:48 Perflutren Lipid Microspheres 1.5 Ml Vial Diluted To 10 Ml Total Volume IV PUSH 09/12/24 23:48 ONCE PRN adequate visualization Protocol Sertraline HCl 50 mg 09/10/24 09:00 09/12/24 08:35 Sertraline Hcl 50 Mg Tablet PO 50 mg QAM FROY Administration Tramadol HCl 50 mg 09/10/24 01:31 [employer]ER 09/11/24 21:22 Tramadol Hcl (*Crx) 50 Mg Tablet PO 50 mg Q8H PRN Administration Pain 4-6 Vitamin D 1,000 units 09/10/24 09:00 09/12/24 08:35 Cholecalciferol 1,000 Units Tablet PO 1,000 units BID FROY Administration Radiology Results: ITS Impressions Abdomen X-Ray 09/09/24 15:43 IMPRESSION: No significant stool burden; no bowel obstruction Abdomen/Pelvis CT 09/09/24 18:57 IMPRESSION: Occasional colonic diverticula; no CT evidence of diverticulitis Normal appendix 3 mm right renal cyst Status post cholecystectomy Uterine fibroids 2.4 x 5.5 cm left parasagittal ventral abdominal wall fat herniation Cardiomegaly
[2024-09-12 10:19] LABS: Hematocrit 28.4 % (37.0-47.0); Hemoglobin 8.5 g/dL (12.0-15.0); Mean Corpuscular HGB Conc 29.9 g/dl (32-36); Mean Corpuscular Volume 83.5 fl (80-100); Mean Platelet Volume 11.7 fl (7.4-10.4); Platelet Count Result 197 k/mm3 (150-375); Red Cell Distribution Width 18.8 % (11.5-14.5); White Blood Count 8.6 K/mm3 (4.5-10.0)
[2024-09-12 10:32] LABS: Anion Gap 9 mmol/L (4-12); Blood Urea Nitrogen 10 mg/dL (7-17); Calcium 9.3 mg/dL (8.4-10.2); Carbon Dioxide 30 mmol/L (22-30); Chloride 103 mmol/L (98-107); Estimated CRCL calculation 76 ml/min; Estimated Glomerular Filt Rate > 60; Glucose 105 mg/dL (65-110); Potassium 3.1 mmol/L (3.4-5.0); Sodium 142 mmol/L (137-145)
[2024-09-12] MEDS: traMADol HCL (*CRX) 50 MG TABLET PO (13:53)
--- NOTE | 2024-09-12 16:30 | P.PNGI_ITS ---
Progress Note: A&P Assessment and Plan (1) Dieulafoy lesion of stomach: Code(s): K31.82 - Dieulafoy lesion (hemorrhagic) of stomach and duodenum Status: Acute Assessment and Plan: wonder if could explain part of anemia in setting of blood thinner, treated with apc recommend to hold eliquis for 7 days also will need to complete work up with cable maintainer (report of endometrial lesion) denies gib (2) GIB (gastrointestinal bleeding): Code(s): K92.2 - Gastrointestinal hemorrhage, unspecified Status: Acute Assessment and Plan: see egd report ppi daily (3) Symptomatic anemia: Code(s): D64.9 - Anemia, unspecified Status: Acute Assessment and Plan: better after transfusion (4) Syncope: Code(s): R55 - Syncope and collapse Status: Acute (5) Chronic anticoagulation: Code(s): Z79.01 - skilled nursing (current) use of anticoagulants Status: Acute (6) Vaginal bleeding: Code(s): N93.9 - Abnormal uterine and vaginal bleeding, unspecified Status: Acute (7) Hemiparesis affecting left side as late effect of cerebrovascular accident: Code(s): I69.354 - Hemiplegia and hemiparesis following cerebral infarction affecting left non-dominant side Status: Acute Subjective Date/time seen: 09/12/24 16:30 Interval history: no new events, no gib egd yesterday with dieulafoy lesion in stomach treated with apc Review of Systems Review of Systems: All systems reviewed & are unremarkable except as noted in HPI and below Exam Const: General: comfortable and no acute distress HENMT: Other: s/p R sided hemicraniectomy Eyes: General: appearance normal, both eyes and all related structures Neck: Neck: supple Resp: Auscultation: clear to auscultation bilaterally Cardio: Rate: regular rate Rhythm: regular rhythm GI: Inspection: non-distended GI Palp: Yes Soft to palpation and No Tenderness to palpation present (GI) Auscultation: normal bowel sounds Skin: General skin exam: normal color Neuro: Speech: normal speech Other: left sided hemiparesis Extrem: General: normal to inspection Psych: Mental Status: mental status grossly normal Objective Data Vital Signs Vital Signs: Vital Signs - 24 hr 09/11/24 19:59 09/11/24 20:00 09/11/24 20:15 Temperature 98.1 F 98.1 F Pulse Rate 84 78 87 Respiratory Rate 16 18 Blood Pressure 124/68 122/67 Pulse Oximetry 96 95 Oxygen Delivery 09/11/24 20:19 09/11/24 20:00 09/12/24 00:00 Temperature Pulse Rate 79 73 Respiratory Rate Blood Pressure Pulse Oximetry Oxygen Delivery Room Air 09/12/24 04:00 09/12/24 06:00 09/12/24 08:37 Temperature 98.2 F Pulse Rate 66 65 68 Respiratory Rate 16 Blood Pressure 131/94 H Pulse Oximetry 97 Oxygen Delivery 09/12/24 08:30 09/12/24 08:04 09/12/24 12:05 Temperature Pulse Rate 72 80 Respiratory Rate Blood Pressure Pulse Oximetry Oxygen Delivery Room Air 09/12/24 14:00 Temperature 98.8 F Pulse Rate 77 Respiratory Rate 18 Blood Pressure 146/69 H Pulse Oximetry 97 Oxygen Delivery Intake/Output Intake/Output: Intake & Output 09/10/24 09/10/24 09/11/24 09/12/24 00:59 23:59 23:59 23:59 Intake Total 3085 1730 Output Total 500 550 Balance 2585 1180 Meds/Results Medications: Active Medications Generic Name Dose Route Start Last Admin Trade Name Freq PRN Reason Stop Dose Admin Acetaminophen 650 mg 09/10/24 01:31 CAMP DISHWASHER 09/12/24 08:36 Acetaminophen 325 Mg Tablet PO 650 mg Q4H PRN Administration Pain Rated 1-3 or Fever Albuterol 2 puff 09/10/24 01:31 CAMP DISHW[employer]ER Albuterol Sulfate (*Sp) Aerosol 1 Puff INHALATION Q4H PRN Wheezing Atorvastatin Calcium 40 mg 09/10/24 01:40 CAMP DISHW[employer]ER 09/11/24 20:16 Atorvastatin 40 Mg Tablet PO 40 mg HS FROY Administration Calcium Carbonate 500 mg 09/10/24 09:00 09/12/24 08:35 Calcium/Vitamin D 500 Mg/5 Mcg (200 I.U.) Tablet PO 500 mg BID FROY Administration Cephalexin HCl 500 mg 09/12/24 21:00 Cephalexin 500 Mg Capsule PO 09/16/24 09:01 Q12HR FROY Dextrose 12.5 gm 09/09/24 23:48 Dextrose 50% 25 Gm/50 Ml Syringe IV PUSH PRN PRN Hypoglycemia Protocol Ferrous Sulfate 325 mg 09/10/24 08:00 09/12/24 08:35 Ferrous Sulfate [address] BY MOUTH 325 mg DAILY@0800 FROY Administration Glucagon 1 mg 09/09/24 23:48 Glucagon For Inj 1 Mg Vial IM PRN PRN Hypoglycemia Protocol Glucose 15 gm 09/09/24 23:48 Glucose Oral Gel 15 Gm Of Glucse In 37.5 Gm Tube PO PRN PRN Hypoglycemia Protocol Hydroxyzine Pamoate 50 mg 09/10/24 02:21 Hydroxyzine Pamoate 25 Mg Capsule PO Q8H PRN anxiety Dextrose 1,000 mls @ 100 mls/hr 09/09/24 23:48 Dextrose 5% 1,000 Ml IVPB PRN PRN Hypoglycemia Protocol Iron Sucrose 100 mg/ Sodium 55 mls @ 220 mls/hr 09/10/24 10:00 09/12/24 08:37 Chloride IVPB 220 mls/hr DAILY FROY Administration Melatonin 3 mg 09/10/24 01:40 CAMP DISHW[employer]ER 09/11/24 20:16 Melatonin 3 Mg Tablet PO 3 mg HS FROY Administration Melatonin 5 mg 09/10/24 01:35 CAMP DISHW[employer]ER 09/11/24 20:16 Melatonin 5 Mg Tablet PO 5 mg QHS FROY Administration Metoprolol Succinate 25 mg 09/10/24 09:00 09/12/24 08:37 Metoprolol Succinate Ext Rel 25 Mg Tabcr PO 25 mg Q12HR FROY Administration Ondansetron HCl 4 mg 09/09/24 20:17 Ondansetron Inj 4 Mg/2 Ml Vial IV PUSH Q4H PRN Nausea Pantoprazole Sodium 40 mg 09/10/24 09:00 09/12/24 08:35 Pantoprazole 40 Mg Tablet PO 40 mg BID FROY Administration Perflutren Lipid Microsphere 0 ml 09/09/24 23:48 Perflutren Lipid Microspheres 1.5 Ml Vial Diluted To 10 Ml Total Volume IV PUSH 09/12/24 23:48 ONCE PRN adequate visualization Protocol Sertraline HCl 50 mg 09/10/24 09:00 09/12/24 08:35 Sertraline Hcl 50 Mg Tablet PO 50 mg QAM FROY Administration Tramadol HCl 50 mg 09/10/24 01:31 CAMP DISHW[employer]ER 09/12/24 13:53 Tramadol Hcl (*Crx) 50 Mg Tablet PO 50 mg Q8H PRN Administration Pain 4-6 Vitamin D 1,000 units 09/10/24 09:00 09/12/24 08:35 Cholecalciferol 1,000 Units Tablet PO 1,000 units BID FROY Administration Radiology Results: ITS Impressions Abdomen X-Ray 09/09/24 15:43 IMPRESSION: No significant stool burden; no bowel obstruction Abdomen/Pelvis CT 09/09/24 18:57 IMPRESSION: Occasional colonic diverticula; no CT evidence of diverticulitis Normal appendix 3 mm right renal cyst Status post cholecystectomy Uterine fibroids 2.4 x 5.5 cm left parasagittal ventral abdominal wall fat herniation Cardiomegaly Labs Labs: Laboratory Results - last 24 hr 09/12/24 10:11 WBC 8.6 RBC 3.40 L Hgb 8.5 L Hct 28.4 L MCV 83.5 MCH 25.0 L MCHC 29.9 L RDW 18.8 H Plt Count 197 MPV 11.7 H Sodium 142 Potassium 3.1 L Chloride 103 Carbon Dioxide 30 Anion Gap 9 BUN 10 D Creatinine 0.60 L Estim Creat Clear Calc 76 Estimated GFR > 60 Glucose 105 Calcium 9.3
[2024-09-12] MEDS: CEPHALEXIN 500 MG CAPSULE PO (19:59)
[2024-09-12] MEDS: MELATONIN 3 MG TABLET PO (19:59)
[2024-09-12] MEDS: MELATONIN 5 MG TABLET PO (19:59)
[2024-09-12] MEDS: ATORVASTATIN 40 MG TABLET PO (19:59)
[2024-09-13] VITALS (8 sets, daily range): BP systolic 136–147; BP diastolic 61–85; PULSE 62–74; RESP 18–20; TEMP 36.2–36.3; O2SAT 91–96
--- NOTE | 2024-09-13 07:40 | PM.IMPN ---
Progress Note: A&P Assessment and Plan (1) Syncope: Code(s): R55 - Syncope and collapse Status: Acute (2) Symptomatic anemia: Code(s): D64.9 - Anemia, unspecified Status: Acute (3) Uterine fibroid: Code(s): D25.9 - Leiomyoma of uterus, unspecified Status: Acute (4) Urinary tract infection: Code(s): N39.0 - Urinary tract infection, site not specified Status: Acute (5) Atrial fibrillation: Code(s): I48.91 - Unspecified atrial fibrillation Status: Acute (6) Chronic anticoagulation: Code(s): Z79.01 - residential (current) use of anticoagulants Status: Acute Assessment and Plan: recommend to hold eliquis for 7 days (7) Vaginal bleeding: Code(s): N93.9 - Abnormal uterine and vaginal bleeding, unspecified Status: Acute Assessment and Plan: need to complete work up with fixed income analyst (report of endometrial lesion) (8) Anxiety: Code(s): F41.9 - Anxiety disorder, unspecified Status: Acute (9) Depression: Code(s): F32.A - Depression, unspecified Status: Acute Plan Syncope Unclear etiologies, possible due to hypotension, anemia, Continue telemetry monitoring, no significant arrhythmia so far Pending echocardiogram Neuro check Orthostatic test Severe anemia, possible acute blood loss anemia Hemoglobin 6.8, received transfusion Hemoglobin 14.2 on March 20, 2024, Follow-up hemoglobin q.6 hours Transfuse p.r.n. Iron deficiency, Iron 24, saturation 6 %, starting 6.52 Start Venofer 100 mg daily IV Acute GI her stool was Hemoccult negative on rectal exam however suspicions are for occult GI bleeding and Dr. Landa has been consulted. Continue PPI. EGD showed dieulafoy lesion and oozing blood, daily agent was occult rest Colonoscopy revealed 2 polyps that were removed UTI Continue ceftriaxone for suspected urinary tract infection, pending culture. AFib She is in rate controlled atrial fibrillation. Hold aspirin and Eliquis for 7 days Type 2 diabetes Hold metformin as she received contrast. Initiate sliding scale insulin, Accu-Cheks, and hypoglycemic protocol. Check hemoglobin A1c. 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 All systems reviewed & are unremarkable except as noted in HPI and below Constitutional: Constitutional: Reports as per HPI and Reports no additional constitutional complaints Eyes: Eyes: Reports as per HPI and Reports no additional eye complaints ENT: Reports system reviewed and no additional complaints, except as documented and Reports as per HPI Cardiovascular: Cardiovascular: Reports as per HPI and Reports no additional cardiovascular complaints Respiratory: Respiratory: Reports as per HPI and Reports no additional respiratory complaints Gastrointestinal: Gastrointestinal: Reports as per HPI and Reports no additional gastrointestinal complaints Genitourinary: Genitourinary: Reports no additional female genitourinary complaints and Reports as per HPI Musculoskeletal: Musculoskeletal: Reports no additional musculoskeletal complaints and Reports as per HPI Integumentary/Breasts: Skin/Breast: Reports system reviewed and no additional complaints, except as docu and Reports as per HPI Neurologic: Reports system reviewed and no additional complaints, except as documented and Reports as per HPI Psychiatric: Psychiatric: Reports no additional psychiatric complaints and Reports as per HPI Exam Narrative: GENERAL: Pleasant, in no acute distress. Well-nourished. - EYES: EOMI. Anicteric. - HENT: Moist mucous membranes. - LUNGS: Clear to auscultation bilaterally, no wheezing, rhonchi, or rales. - CARDIOVASCULAR: Regular rate and rhythm. No murmur. No JVD. - ABDOMEN: Soft, non-tender and non-distended. No palpable masses. - EXTREMITIES: No edema. Peripheral pulses 2+. Non-tender. - NEUROLOGIC: No focal neurological deficits. CN II-XII grossly intact. Paralyses of left-sided body, unable to move left arm and leg - PSYCHIATRIC: Awake, Alert and oriented x 3. Appropriate mood and affect. - SKIN: No rashes or lesions. Warm. - LYMPH: No cervical lymphadenopathy. Objective Data Vital Signs Vital Signs: Vital Signs - 24 hr 09/12/24 08:37 09/12/24 08:30 09/12/24 08:04 Temperature Pulse Rate 68 72 Respiratory Rate Blood Pressure Pulse Oximetry Oxygen Delivery Room Air 09/12/24 12:05 09/12/24 14:00 09/12/24 16:21 Temperature 98.8 F Pulse Rate 80 77 68 Respiratory Rate 18 Blood Pressure 146/69 H Pulse Oximetry 97 Oxygen Delivery 09/12/24 21:30 09/12/24 20:00 09/12/24 20:00 Temperature 97 F L Pulse Rate 72 74 Respiratory Rate 18 Blood Pressure 144/77 H Pulse Oximetry 96 Oxygen Delivery Room Air 09/13/24 00:00 09/13/24 04:00 09/13/24 06:00 Temperature 97.2 F L Pulse Rate 62 63 62 Respiratory Rate 20 Blood Pressure 147/85 H Pulse Oximetry 96 Oxygen Delivery Intake/Output Intake/Output: Intake & Output 09/10/24 09/11/24 09/12/24 09/13/24 23:59 23:59 23:59 23:59 Intake Total 3085 2170 250 Output Total 500 550 400 Balance 2585 1620 -150 Meds/Results Medications: Active Medications Generic Name Dose Route Start Last Admin Trade Name Freq PRN Reason Stop Dose Admin Acetaminophen 650 mg 09/10/24 01:31 SUPERVISOR [employer]MODULE ASSEMBLY 09/12/24 20:43 Acetaminophen 325 Mg Tablet PO 650 mg Q4H PRN Administration Pain Rated 1-3 or Fever Albuterol 2 puff 09/10/24 01:31 SUPERVISOR [employer]SEMBLY Albuterol Sulfate (*Sp) Aerosol 1 Puff INHALATION Q4H PRN Wheezing Atorvastatin Calcium 40 mg 09/10/24 01:40 SUPERVISOR [employer] ASSEMBLY 09/12/24 19:59 Atorvastatin 40 Mg Tablet PO 40 mg HS FROY Administration Calcium Carbonate 500 mg 09/10/24 09:00 09/12/24 17:18 Calcium/Vitamin D 500 Mg/5 Mcg (200 I.U.) Tablet PO 500 mg BID FROY Administration Cephalexin HCl 500 mg 09/12/24 21:00 09/12/24 19:59 Cephalexin 500 Mg Capsule PO 09/16/24 09:01 500 mg Q12HR FROY Administration Dextrose 12.5 gm 09/09/24 23:48 Dextrose 50% 25 Gm/50 Ml Syringe IV PUSH PRN PRN Hypoglycemia Protocol Ferrous Sulfate 325 mg 09/10/24 08:00 09/12/24 08:35 Ferrous Sulfate [address] BY MOUTH 325 mg DAILY@0800 FROY Administration Glucagon 1 mg 09/09/24 23:48 Glucagon For Inj 1 Mg Vial IM PRN PRN Hypoglycemia Protocol Glucose 15 gm 09/09/24 23:48 Glucose Oral Gel 15 Gm Of Glucse In 37.5 Gm Tube PO PRN PRN Hypoglycemia Protocol Hydroxyzine Pamoate 50 mg 09/10/24 02:21 Hydroxyzine Pamoate 25 Mg Capsule PO Q8H PRN anxiety Dextrose 1,000 mls @ 100 mls/hr 09/09/24 23:48 Dextrose 5% 1,000 Ml IVPB PRN PRN Hypoglycemia Protocol Iron Sucrose 100 mg/ Sodium 55 mls @ 220 mls/hr 09/10/24 10:00 09/12/24 08:37 Chloride IVPB 220 mls/hr DAILY FROY Administration Melatonin 3 mg 09/10/24 01:40 SUPERVISOR [employer] ASSEMBLY 09/12/24 19:59 Melatonin 3 Mg Tablet PO 3 mg HS FROY Administration Melatonin 5 mg 09/10/24 01:35 SUPERVISOR [employer] ASSEMBLY 09/12/24 19:59 Melatonin 5 Mg Tablet PO 5 mg QHS FROY Administration Metoprolol Succinate 25 mg 09/10/24 09:00 09/12/24 19:59 Metoprolol Succinate Ext Rel 25 Mg Tabcr PO 25 mg Q12HR FROY Administration Ondansetron HCl 4 mg 09/09/24 20:17 Ondansetron Inj 4 Mg/2 Ml Vial IV PUSH Q4H PRN Nausea Pantoprazole Sodium 40 mg 09/10/24 09:00 09/12/24 17:18 Pantoprazole 40 Mg Tablet PO 40 mg BID FROY Administration Sertraline HCl 50 mg 09/10/24 09:00 09/12/24 08:35 Sertraline Hcl 50 Mg Tablet PO 50 mg QAM FROY Administration Tramadol HCl 50 mg 09/10/24 01:31 SUPERVISOR [employer]SEMBLY 09/12/24 13:53 Tramadol Hcl (*Crx) 50 Mg Tablet PO 50 mg Q8H PRN Administration Pain 4-6 Vitamin D 1,000 units 09/10/24 09:00 09/12/24 17:18 Cholecalciferol 1,000 Units Tablet PO 1,000 units BID FROY Administration Radiology Results: ITS Impressions Abdomen X-Ray 09/09/24 15:43 IMPRESSION: No significant stool burden; no bowel obstruction Abdomen/Pelvis CT 09/09/24 18:57 IMPRESSION: Occasional colonic diverticula; no CT evidence of diverticulitis Normal appendix 3 mm right renal cyst Status post cholecystectomy Uterine fibroids 2.4 x 5.5 cm left parasagittal ventral abdominal wall fat herniation Cardiomegaly Labs Labs: Laboratory Results - last 24 hr 09/12/24 10:11 WBC 8.6 RBC 3.40 L Hgb 8.5 L Hct 28.4 L MCV 83.5 MCH 25.0 L MCHC 29.9 L RDW 18.8 H Plt Count 197 MPV 11.7 H Sodium 142 Potassium 3.1 L Chloride 103 Carbon Dioxide 30 Anion Gap 9 BUN 10 D Creatinine 0.60 L Estim Creat Clear Calc 76 Estimated GFR > 60 Glucose 105 Calcium 9.3 Quality VTE Prophylaxis VTE prophylaxis: mechanical ordered
[2024-09-13] MEDS: PANTOPRAZOLE 40 MG TABLET PO ×2 (08:53→17:43)
[2024-09-13] MEDS: CHOLECALCIFEROL 1,000 UNITS TABLET 1000 UNITS PO ×2 (08:53→17:43)
[2024-09-13] MEDS: FERROUS SULFATE 325 MG TABLET DR BY MOUTH (08:53)
[2024-09-13] MEDS: CALCIUM/VITAMIN D 500 MG/5 MCG (200 I.U.) TABLET PO ×2 (08:53→17:43)
[2024-09-13] MEDS: METOPROLOL SUCCINATE EXT REL 25 MG TABCR PO ×2 (08:53→20:03)
[2024-09-13] MEDS: SERTRALINE HCL 50 MG TABLET PO (08:53)
[2024-09-13] MEDS: CEPHALEXIN 500 MG CAPSULE PO ×2 (08:53→20:03)
[2024-09-13] MEDS: IRON SUCROSE COMPLEX 100 MG in SODIUM CHLORIDE 0.9% IV 50 ML 220 MG IVPB (08:57)
[2024-09-13] MEDS: ACETAMINOPHEN 325 MG TABLET 650 MG PO ×2 (09:02→20:03)
--- NOTE | 2024-09-13 13:56 | P.PNGI_ITS ---
Progress Note: A&P Assessment and Plan (1) Dieulafoy lesion of stomach: Code(s): K31.82 - Dieulafoy lesion (hemorrhagic) of stomach and duodenum Status: Acute Assessment and Plan: this probably explain part of anemia in setting of blood thinner, treated with apc recommend to hold eliquis for 7 days sinde day of admission also will need to complete work up with reel winder (report of endometrial lesion) denies gib ppi daily will follow only as needed (2) GIB (gastrointestinal bleeding): Code(s): K92.2 - Gastrointestinal hemorrhage, unspecified Status: Acute Assessment and Plan: see egd report ppi daily (3) Symptomatic anemia: Code(s): D64.9 - Anemia, unspecified Status: Acute Assessment and Plan: better after transfusion (4) Syncope: Code(s): R55 - Syncope and collapse Status: Acute Assessment and Plan: no more episodes (5) Chronic anticoagulation: Code(s): Z79.01 - intermediate (current) use of anticoagulants Status: Acute (6) Vaginal bleeding: Code(s): N93.9 - Abnormal uterine and vaginal bleeding, unspecified Status: Acute (7) Hemiparesis affecting left side as late effect of cerebrovascular accident: Code(s): I69.354 - Hemiplegia and hemiparesis following cerebral infarction affecting left non-dominant side Status: Acute Subjective Date/time seen: 09/13/24 13:56 Interval history: she is doing ok, good appetite, no new events Review of Systems Review of Systems: All systems reviewed & are unremarkable except as noted in HPI and below Exam Const: General: comfortable and no acute distress HENMT: Other: s/p R sided hemicraniectomy Eyes: General: appearance normal, both eyes and all related structures Neck: Neck: supple Resp: Auscultation: clear to auscultation bilaterally Cardio: Rate: regular rate Rhythm: regular rhythm GI: Inspection: non-distended GI Palp: Yes Soft to palpation and No Tenderness to palpation present (GI) Auscultation: normal bowel sounds Skin: General skin exam: normal color Neuro: Speech: normal speech Other: left sided hemiparesis Extrem: General: normal to inspection Psych: Mental Status: mental status grossly normal Objective Data Vital Signs Vital Signs: Vital Signs - 24 hr 09/12/24 14:00 09/12/24 16:21 09/12/24 21:30 Temperature 98.8 F 97 F L Pulse Rate 77 68 72 Respiratory Rate 18 18 Blood Pressure 146/69 H 144/77 H Pulse Oximetry 97 96 Oxygen Delivery 09/12/24 20:00 09/12/24 20:00 09/13/24 00:00 Temperature Pulse Rate 74 62 Respiratory Rate Blood Pressure Pulse Oximetry Oxygen Delivery Room Air 09/13/24 04:00 09/13/24 06:00 09/13/24 09:30 Temperature 97.2 F L Pulse Rate 63 62 Respiratory Rate 20 Blood Pressure 147/85 H Pulse Oximetry 96 Oxygen Delivery Room Air 09/13/24 08:04 09/13/24 12:04 09/13/24 08:15 Temperature Pulse Rate 64 64 Respiratory Rate Blood Pressure Pulse Oximetry 91 Oxygen Delivery Room Air Intake/Output Intake/Output: Intake & Output 09/10/24 09/11/24 09/12/24 09/13/24 23:59 23:59 23:59 23:59 Intake Total 3085 2225 490 Output Total 500 550 400 Balance 2585 4672 90 Meds/Results Medications: Active Medications Generic Name Dose Route Start Last Admin Trade Name Freq PRN Reason Stop Dose Admin Acetaminophen 650 mg 09/10/24 01:31 CABLE TESTER 09/13/24 09:02 Acetaminophen 325 Mg Tablet PO 650 mg Q4H PRN Administration Pain Rated 1-3 or Fever Albuterol 2 puff 09/10/24 01:31 CABLE TESTER Albuterol Sulfate (*Sp) Aerosol 1 Puff INHALATION Q4H PRN Wheezing Atorvastatin Calcium 40 mg 09/10/24 01:40 CABLE TESTER 09/12/24 19:59 Atorvastatin 40 Mg Tablet PO 40 mg HS FROY Administration Calcium Carbonate 500 mg 09/10/24 09:00 09/13/24 08:53 Calcium/Vitamin D 500 Mg/5 Mcg (200 I.U.) Tablet PO 500 mg BID FROY Administration Cephalexin HCl 500 mg 09/12/24 21:00 09/13/24 08:53 Cephalexin 500 Mg Capsule PO 09/16/24 09:01 500 mg Q12HR FROY Administration Dextrose 12.5 gm 09/09/24 23:48 Dextrose 50% 25 Gm/50 Ml Syringe IV PUSH PRN PRN Hypoglycemia Protocol Ferrous Sulfate 325 mg 09/10/24 08:00 09/13/24 08:53 Ferrous Sulfate [address] BY MOUTH 325 mg DAILY@0800 FROY Administration Glucagon 1 mg 09/09/24 23:48 Glucagon For Inj 1 Mg Vial IM PRN PRN Hypoglycemia Protocol Glucose 15 gm 09/09/24 23:48 Glucose Oral Gel 15 Gm Of Glucse In 37.5 Gm Tube PO PRN PRN Hypoglycemia Protocol Hydroxyzine Pamoate 50 mg 09/10/24 02:21 Hydroxyzine Pamoate 25 Mg Capsule PO Q8H PRN anxiety Dextrose 1,000 mls @ 100 mls/hr 09/09/24 23:48 Dextrose 5% 1,000 Ml IVPB PRN PRN Hypoglycemia Protocol Iron Sucrose 100 mg/ Sodium 55 mls @ 220 mls/hr 09/10/24 10:00 09/13/24 08:57 Chloride IVPB 220 mls/hr DAILY FROY Administration Melatonin 3 mg 09/10/24 01:40 CABLE TESTER 09/12/24 19:59 Melatonin 3 Mg Tablet PO 3 mg HS FROY Administration Melatonin 5 mg 09/10/24 01:35 CABLE TESTER 09/12/24 19:59 Melatonin 5 Mg Tablet PO 5 mg QHS FROY Administration Metoprolol Succinate 25 mg 09/10/24 09:00 09/13/24 08:53 Metoprolol Succinate Ext Rel 25 Mg Tabcr PO 25 mg Q12HR FROY Administration Ondansetron HCl 4 mg 09/09/24 20:17 Ondansetron Inj 4 Mg/2 Ml Vial IV PUSH Q4H PRN Nausea Pantoprazole Sodium 40 mg 09/10/24 09:00 09/13/24 08:53 Pantoprazole 40 Mg Tablet PO 40 mg BID FROY Administration Sertraline HCl 50 mg 09/10/24 09:00 09/13/24 08:53 Sertraline Hcl 50 Mg Tablet PO 50 mg QAM FROY Administration Tramadol HCl 50 mg 09/10/24 01:31 CABLE TESTER 09/12/24 13:53 Tramadol Hcl (*Crx) 50 Mg Tablet PO 50 mg Q8H PRN Administration Pain 4-6 Vitamin D 1,000 units 09/10/24 09:00 09/13/24 08:53 Cholecalciferol 1,000 Units Tablet PO 1,000 units BID FROY Administration Radiology Results: ITS Impressions Abdomen X-Ray 09/09/24 15:43 IMPRESSION: No significant stool burden; no bowel obstruction Abdomen/Pelvis CT 09/09/24 18:57 IMPRESSION: Occasional colonic diverticula; no CT evidence of diverticulitis Normal appendix 3 mm right renal cyst Status post cholecystectomy Uterine fibroids 2.4 x 5.5 cm left parasagittal ventral abdominal wall fat herniation Cardiomegaly
[2024-09-13] MEDS: traMADol HCL (*CRX) 50 MG TABLET PO (14:58)
--- NOTE | 2024-09-13 15:03 | P.DS_ITS ---
DS: Admitting Diagnosis Discharge Date 09/13 Admitting Diagnosis n/v/ DS: Discharge Diagnosis Discharge Diagnosis (1) Syncope: Code(s): R55 - Syncope and collapse Status: Acute (2) Symptomatic anemia: Code(s): D64.9 - Anemia, unspecified Status: Acute (3) Uterine fibroid: Code(s): D25.9 - Leiomyoma of uterus, unspecified Status: Acute (4) Urinary tract infection: Code(s): N39.0 - Urinary tract infection, site not specified Status: Acute (5) Atrial fibrillation: Code(s): I48.91 - Unspecified atrial fibrillation Status: Acute (6) Chronic anticoagulation: Code(s): Z79.01 - terminal clerk (current) use of anticoagulants Status: Acute Assessment and Plan: recommend to hold eliquis for 7 days (7) Vaginal bleeding: Code(s): N93.9 - Abnormal uterine and vaginal bleeding, unspecified Status: Acute Assessment and Plan: need to complete work up with industrial accountant (report of endometrial lesion) (8) Anxiety: Code(s): F41.9 - Anxiety disorder, unspecified Status: Acute (9) Depression: Code(s): F32.A - Depression, unspecified Status: Acute Plan A Fib She is in rate controlled atrial fibrillation. Hold aspirin and Eliquis for 7 days- can restarted 09/18 DS: Summary Hospital Course Hospital Course: This is a 64-year-old female with history of right MCA stroke in 11/2023 with residual left hemiplegia, atrial fibrillation on chronic anticoagulation, hypertension, dyslipidemia, type 2 diabetes mellitus, gastroesophageal reflux disease, and anxiety who presented to the emergency department via EMS from [facility] for evaluation of nausea, vomiting, and syncope. Several issues were addressed: Syncope Unclear etiologies, possible due to hypotension, anemia, Telemetry showed no significant arrhythmia echocardiogram completed Severe anemia, possible acute blood loss anemia Hemoglobin 6.8, received transfusion Hg 8.5 today,09/13 Iron deficiency, Iron 24, saturation 6 %, starting 6.52 Start Venofer 100 mg IV -will need a follow up with PCP with CBC repeat Acute GI her stool was Hemoccult negative on rectal exam however suspicions are for occult GI bleeding and Dr. Landa has been consulted. Continue PPI. EGD showed dieulafoy lesion and oozing blood, daily agent was occult rest Colonoscopy revealed 2 polyps that were removed UTI Continue ceftriaxone for suspected urinary tract infection, Was started on Keflex- still needs 6 more doses- last dose 09/16 at 0900 am A Fib She is in rate controlled atrial fibrillation. Hold aspirin and Eliquis for 7 days- can restarted 09/18 Status at Discharge Functional status at discharge: wheelchair bound Overall status at discharge: patient is progressing back to baseline Time Spent with Patient Time attestation: Total time spent providing and/or coordinating discharge services: Time spent: Greater than 30 minutes Exam Narrative: GENERAL: Pleasant, in no acute distress. Well-nourished. - EYES: EOMI. Anicteric. - HENT: Moist mucous membranes. - LUNGS: Clear to auscultation bilateral ly, no wheezing, rhonchi, or rales. - CARDIOVASCULAR: Regular rate and rhyth m. No murmur. No JVD. - ABDOMEN: Soft, non-tender and non-dist ended. No palpable masses. - EXTREMITIES: No edema. Peripheral puls es 2+. Non-tender. - NEUROLOGIC: No focal neurological defi cits. CN II-XII grossly intact. Paralyses of left-sided body, unable to move left arm and leg - PSYCHIATRIC: Awake, Alert and oriented x 3. Appropriate mood and affect. - SKIN: No rashes or lesions. Warm. - LYMPH: No cervical lymphadenopathy. DS: Data Data Completed and Pending Completed studies during hospitalization: Pending at discharge 09/11/24 11:54 Surgical [PTH] Routine Discharge Plan Discharge Consulting providers: Kaya Hay; Aryan Ott Discharging Clinician: Mariaa Oconnor Patient Disposition: SNF Activity: may shower Diet: as tolerated and diabetic Discharge Instructions: please finish your keflex- you need 6 more doses hold Eliquis per GI instructions- ok to restart on 09/18. If any bleeding present please reach out to pcp prior to restarting eliquiz Stand Alone Forms: General Discharge Information Discharge Medications: New cephalexin 500 mg Capsule 500 mg PO Q12HR Qty: 6 0RF Continued hydroxyzine pamoate 50 mg capsule 50 mg PO Q8H PRN (Reason: anxiety ) Rx Instructions: end date 09/11/24 tramadol 50 mg tablet 50 mg PO Q8H PRN (Reason: Pain) pantoprazole 40 mg tablet,delayed release (DR/EC) 40 mg PO BID docusate sodium 100 mg Capsule 100 mg PO BID melatonin 5 mg Capsule 5 mg PO QHS atorvastatin 40 mg Tablet 40 mg PO HS acetaminophen 325 mg Tablet 650 mg PO Q4H PRN (Reason: Fever Or Pain) polyethylene glycol 3350 17 gram Powder In Packet 17 g PO DAILY melatonin 3 mg Tablet 3 mg PO HS Rx Instructions: give along with 5mg at hs ferrous sulfate 325 mg (65 mg iron) Tablet 325 mg PO QACBREAK metoprolol succinate 25 mg Tablet Extended Release 24 Hr 25 mg PO BID albuterol sulfate 90 mcg/actuation Hfa Aerosol Inhaler 2 puff INHALATION Q4H PRN (Reason: Wheezing) calcium carbonate-vitamin D3 [Calcium with Vitamin D] 600 mg-10 mcg (400 unit) Tablet 1 tablet PO BID cholecalciferol (vitamin D3) 25 mcg (1,000 unit) Tablet 25 mcg PO BID sertraline [Zoloft] 50 mg Tablet 50 mg PO QAM 30 Days Qty: 30 0RF Held apixaban 5 mg Tablet 5 mg PO BID Hold Instructions: Resume on 09/18/24. aspirin 81 mg Tablet,Delayed Release (Dr/Ec) 81 mg PO DAILY Hold Instructions: Resume on 09/18/24. Date of admission: 09/11/24 09:48 Primary Care Provider: RANNEGRITA Admitting Provider: Yohannes Schumacher Attending physician on admission: Yohannes Schumacher Condition: Stable Quality VTE Prophylaxis VTE prophylaxis: mechanical ordered Hospitalist MIPS Heart Failure (Exclusion) Patient has history of Heart Transplant or Left Ventricular Assistive Device?: No IF YES, STOP HERE Heart Failure (Qualifier) Patient has current or prior documentation of LVEF less than or equal to 40%, or mod/servere depressed LVSF?: No IF NO, STOP HERE
--- NOTE | 2024-09-13 17:02 | PC.NURSE ---
Patient is going to her brothers residence per her and his request. They do not want to return to [facility]. Patient is alert and oriented X3. [facility] was notified of this.
[2024-09-13] MEDS: ATORVASTATIN 40 MG TABLET PO (20:03)
[2024-09-13] MEDS: MELATONIN 3 MG TABLET PO (20:03)
[2024-09-13] MEDS: MELATONIN 5 MG TABLET PO (20:04)
[2024-09-13] MEDS: ONDANSETRON INJ 4 MG/2 ML VIAL IV PUSH (21:44)
== END 2024-09-13 15:14 | disposition home health service (06) | DRG 394 ==
LOC: ANHED 14:39 → ANH3MEDSUR 20:50 → ANH3MED 21:31
PROVIDERS: Hospitalist; Internal Medicine Gastroenterology; Physician Assistant; Admitting Provider Internal Medicine; Emergency Provider Student in an Organized Health Care Education/Training Program; PCP Nurse Practitioner Family; Visit Provider Nurse Practitioner
PROC: 0DJ08ZZ Inspection of Upper Intestinal Tract, Via Natural or Artificial Opening Endoscopic (ICD-10-PCS; CPT 43235; principal; 2024-09-11 13:30)
DX: K63.81 Dieulafoy lesion of intestine (principal); D62 Acute posthemorrhagic anemia; N39.0 Urinary tract infection, site not specified; I50.32 Chronic diastolic (congestive) heart failure; I48.20 Chronic atrial fibrillation, unspecified; I69.351 Hemiplegia and hemiparesis following cerebral infarction affecting right dominant side; R55 Syncope and collapse; B96.20 Unspecified Escherichia coli [E. coli] as the cause of diseases classified elsewhere; K63.5 Polyp of colon; K57.30 Diverticulosis of large intestine without perforation or abscess without bleeding; D64.9 Anemia, unspecified; D50.9 Iron deficiency anemia, unspecified; I25.10 Atherosclerotic heart disease of native coronary artery without angina pectoris; E78.5 Hyperlipidemia, unspecified; K21.9 Gastro-esophageal reflux disease without esophagitis; E87.6 Hypokalemia; I11.0 Hypertensive heart disease with heart failure; K76.0 Fatty (change of) liver, not elsewhere classified; D63.8 Anemia in other chronic diseases classified elsewhere; D25.9 Leiomyoma of uterus, unspecified; Z20.822 Contact with and (suspected) exposure to COVID-19; Z79.01 Long term (current) use of anticoagulants; Z85.89 Personal history of malignant neoplasm of other organs and systems
CPT/HCPCS: 36415; 36430; 74018; 74177; 80048; 80053; 81001; 82728; 82948; 83036; 83540; 83550; 83690; 83735; 84484; 85025; 85027; 86850; 86900; 86901; 86923; 87086; 87186; 87636; 88305; 93005; 93306; 96365; 96367; 96376; 99285; A9270; G0378; J0696; J1756; J2003; J2405; J2704; J7120; P9016; Q9967

== ENCOUNTER 2024-09-16 21:34 | Emergency (ER) | payer MEDICARE, SELFPAY ==
--- NOTE | ~2024-09-16 | XR_ITS ---
Clinical Indication: Chest pain PA and lateral views of the chest: Comparison: 02/21/2024 Findings: The lungs are clear, without evidence of focal consolidation or pleural effusion. Cardiome diastinal silhouette is stable. Bones and soft tissues are unremarkable. Impression: Clear lungs. Reviewed, dictated and finalized at location . R SCRUBBER Impression: Clear lungs.
--- NOTE | ~2024-09-16 | CT_ITS ---
CT of the Abdomen and Pelvis: Indication: Abdominal pain Technique: 2.5 mm axial scans were obtained through the abdomen and pelvis following intravenous adm inistration of 100 cc of Omnipaque 350. Dose reduction technique was used on this scan by utilizing a utomated exposure control and iterative reconstruction technique. The dose-length product (DLP) was 7 14.77 mGy-cm. COMPARISON: 09/09/2024 Findings: Scans through the lung bases are unremarkable. The liver, spleen, pancreas, adrenals and kidneys are within normal limits. Gallbladder absent. There are atherosclerotic calcifications of the aorta. No lymphadenopathy. No bowel obstruction or bowel wall thickening. There is no evidence to suggest acute appendicitis. Sm all to moderate fat-containing ventral hernia present superior to the umbilicus. Images through the pelvis were performed. Probable uterine fibroids present. Probable small urinary b ladder stone. No ascites. Impression: No acute abnormality evident. Probable uterine fibroids. Probable small urinary bladder stone versus focal wall calcification. Reviewed, dictated and finalized at [facility]. O OPERATOR Impression: No acute abnormality evident. Probable uterine fibroids. Probable small urinary bladder stone versus focal wall calcification.
[2024-09-16 21:35] VITALS: BP 170/89; PULSE 70; RESP 15; TEMP 36.5; O2SAT 98
--- NOTE | 2024-09-16 21:52 | ED_ITS ---
HPI - Nausea/Vomiting/Diarrhea General Chief complaint: Nausea/Vomiting/Diarrhea Stated complaint: n/v Time Seen by Provider: 09/16/24 21:50 Source: patient, EMS and RN notes reviewed Mode of arrival: EMS Limitations: no limitations History of Present Illness HPI Narrative: Patient presents with nausea and vomiting started today. She states she had 3 episodes brown emesis. She denies it being like coffee or coffee grounds. She states it is possible that it was dark because she drank tea just prior to emesis. She felt like she might pass out/black out but denies a syncopal event. She is having right upper quadrant abdominal pain and states this pain has been going on since Wednesday and she had mentioned it but had been discharged from the hospital despite this. She had been taking a few Tylenol for this. Patient was recently admitted due to anemia requiring 1 unit blood transfusion. Patient had been evaluated by Gastroenterology. Had diverticulosis appreciated on CT imaging. Had been advised to temporarily hold Elliquis which she has been doing. Patient [facility] but was dissatisfied with their care and upon discharge from the hospital was discharged home with home health. Last oral intake was earlier. She denies any appetite. She states that she had felt lightheaded. She also developed chest pain after vomiting. Her last bowel movement was this morning and she denies any diarrhea, constipation, or bloody stool. She had been discharged with prescription for a PPI and she states she has been taking this. She notes she feels thirsty. Related Data Home Medications Medication Instructions Recorded Confirmed acetaminophen 325 mg tablet 650 mg PO Q4H PRN Fever Or Pain 12/19/23 09/09/24 melatonin 3 mg tablet 3 mg PO HS 12/19/23 09/10/24 tramadol 50 mg tablet 50 mg PO Q8H PRN Pain 09/09/24 09/10/24 Allergies Allergy/AdvReac Type Severity Reaction Status Date / Time codeine Allergy Unknown HIVES, Verified 09/11/24 11:21 VOMITING nitrofurantoin Allergy Rash Verified 09/11/24 11:21 [From Macrobid] strawberry Allergy Hives Verified 09/11/24 11:21 Sulfa (Sulfonamide AdvReac Other Verified 09/11/24 11:21 Antibiotics) [facility] Past Medical History Medical History (Updated 11/10/24 @ 01:23 by Sally Hampton MD) Anxiety Atherosclerotic heart disease of [place] coronary artery without angina pectoris Atrial fibrillation Thomas's palsy Cerebral infarction due to embolism of right middle cerebral artery (11/2023) failed mechanical thrombectomy status post hemicraniectomy for edema residual left hemiplegia Chronic anticoagulation Depression Diaphragmatic hernia without obstruction or gangrene Diastolic heart failure Dieulafoy lesion of stomach Endometrial cancer Fatty liver Flaccid hemiplegia affecting left nondominant side Gastroesophageal reflux disease GIB (gastrointestinal bleeding) Hyperlipidemia Hypertension Left bundle-branch block, unspecified Type 2 diabetes mellitus Vaginal bleeding Surgical History Surgical History History of cholecystectomy History of colonoscopy before 2020 History of craniotomy right Family History Family History Other Family history non-contributory Social History Social History Social History: Surrogate medical decision maker: Fernandez Wiggins ([phone]), son. Code status: Full code. Smoking status: Never smoker Second hand tobacco smoke exposure: No Alcohol intake: never Substance use: never Do You Feel Safe in your Home?: No Lack of Transportation: No Lack of Food: Never True Current Housing: I Have Housing Concerned About Future Housing: No Difficulty Paying Gas/Electric Bills: No Difficulty Paying for Meds: No Currently Unemployed: No Education: Decline to Answer Difficulty w/ Childcare or Family Care: No Additional living arrangements comments: Previously [facility] (since 04/25/24) but home with home health care upon hospital discharge Sep 2024. Spiritual care concerns: No Exam Narrative: GENERAL: Well-appearing, well-nourished, and in no acute distress. HEAD: Right leticia-crani, not bulging on the right with absent brain matter but otherwise not sunken beyond that. EYES: Non injected, non icteric ENT: Nares clear, no rhinorrhea or epistaxis. NECK: Supple. CHEST: Speaking in full sentences. No respiratory distress. HEART: Regular rate and rhythm. . ABDOMEN: Soft, nondistended. No tenderness palpation throughout. No rigidity or guarding. Liu sign negative. Not peritoneal. EXTREMITIES: Normal range of motion. No lower extremity edema. SKIN: Warm, dry, no rash. NEURO: No focal deficits. Alert and oriented x3. PSYCH: Normal mood and affect. Course Vital Signs Vital signs: Vital Signs Temperature 97.7 F 09/16/24 21:35 Pulse Rate 70 09/16/24 21:35 Respiratory Rate 15 09/16/24 21:35 Blood Pressure 170/89 H 09/16/24 21:35 Pulse Oximetry 98 09/16/24 21:35 Oxygen Delivery Room Air 09/16/24 21:35 Temperature 97.7 F 09/16/24 21:35 Pulse Rate 79 09/17/24 02:40 Respiratory Rate 14 09/17/24 02:40 Blood Pressure 133/68 09/17/24 02:40 Pulse Oximetry 97 09/17/24 02:40 Oxygen Delivery Room Air 09/16/24 21:35 MDM - Nausea/Vomiting/Diarrhea MDM Narrative Medical decision making narrative: Patient presents acute onset nausea and 3 episodes of vomiting today as well as near syncope. She has also been having right upper quadrant abdominal pain. Patient recently hospitalized for anemia requiring 1 unit blood transfusion felt to be secondary to diverticulosis as well as exacerbated by Eliquis which she has subsequently been holding temporarily. In the emergency department she is afebrile with vital signs notable for hypertension. Patient does not appear particularly dehydrated. No ketones in urine. Will defer giving IV fluids at this time given especially given national shortage. Will hold on PO challenging until result of CT scan. Normocytic anemia, stable in fact improved previous from discharge. Unable to get orthostatic vital signs given patient is nonambulatory. I suspect that her presyncope or feeling like she might pass out was possibly vasovagal in nature and attributed to vagal stimulation in the setting of vomiting. CT scan without acute process other possible colitis in the transverse colon. Shared decision making patient and her son and will defer administering antibiotics given these are unlikely to exacerbate her symptoms at this time. Patient successfully p.o. challenged and has eaten Ward crackers as well. Patient discharged stable condition. Patient's son is very frustrated that she will not be admitted for even observation status. He notes that he works during the day and has been up all night will continue to have to be up to make sure that the home is ready for her to return to. Unfortunately, discussed that there is no medical reason for admission. Patient and son verify understanding. EMS transportation arranged given patient's neurologic and mobility limitations. Patient given a dose of Bentyl prior to discharge and she is prescribed this me dication in addition to Zofran (which she states that she out of) and acetaminophen. Differential Diagnosis Differential diagnosis: Likely food poisoning, gastroenteritis, drug-induced nausea and vomiting, dehydration and other (Pancreatitis, biliary etiology; lobar pneumonia; ACS) Lab Data Attestation: I reviewed the patient's lab results. 09/16/24 21:58 09/16/24 21:57 Labs: Lab Results 09/16/24 09/16/24 09/16/24 Range/Units 21:57 21:58 22:28 WBC 9.8 (4.5-10.0) K/mm3 RBC 3.87 L (4.2-5.4) M/mm3 Hgb 9.9 L (12.0-15.0) g/dL Hct 33.4 L (37.0-47.0) % MCV 86.3 (80-100) fl MCH 25.6 L (26-34) pg MCHC 29.6 L (32-36) g/dl RDW 22.3 H (11.5-14.5) % Plt Count 246 (150-375) k/mm3 MPV 11.0 H (7.4-10.4) fl Immature Gran % (Auto) 0.3 (0-0.5) % Neut % (Auto) 75.7 H (45.5-73.1) % Lymph % (Auto) 17.1 L (18.3-44.2) % [place] % (Auto) 5.1 (2.6-8.5) % Eos % (Auto) 1.1 (0-4.4) % Baso % (Auto) 0.7 (0.2-1.2) % Lymph # (Auto) 1.68 (0.9-3.2) K/mm3 [place] # (Auto) 0.5 (0.1-0.6) K/mm3 Eos # (Auto) 0.1 (0-0.3) K/mm3 Baso # (Auto) 0.1 (0.0-0.1) K/mm3 Abs Immat Gran (auto) 0.03 (0.00-0.031) K/mm3 Absolute Neuts (auto) 7.4 H (1.3-6.7) K/mm3 Absolute Nucleated RBC 0.000 (0.0-0.012) K/mm3 Nucleated RBC % 0.0 (0.0-0.2) % Platelet Estimate Adequate (Adequate) Hypochromasia 1+ Anisocytosis 3+ Schistocytes None seen PT (11.1-14.7) Seconds INR APTT (22.3-36.8) Seconds Sodium 141 (137-145) mmol/L Potassium 3.4 (3.4-5.0) mmol/L Chloride 105 (98-107) mmol/L Carbon Dioxide 30 (22-30) mmol/L Anion Gap 6 (4-12) mmol/L BUN 13 (7-17) mg/dL Creatinine 0.60 L (0.7-1.0) mg/dL Estim Creat Clear Calc 70 ml/min Estimated GFR > 60 (59 - ) Glucose 125 H (65-110) mg/dL Calcium 9.4 (8.4-10.2) mg/dL Total Bilirubin 0.5 (0.2-1.3) mg/dL AST 24 (14-36) U/L ALT 11 (6-35) U/L Alkaline Phosphatase 67 (38-126) U/L Troponin I (0.000-0.034) ng/mL Total Protein 7.0 (6.3-8.2) g/dL Albumin 4.0 (3.5-5.1) g/dL Lipase 100 (23-300) U/L Urine Color Yellow (Yellow) Urine Appearance Clear (Clear) Urine pH 6.5 (5.0-9.0) Ur Specific [place] 1.018 (1.001-1.035) Urine Protein Negative (Negative) mg/dL Urine Glucose (UA) Negative (Negative) mg/dL Urine Ketones Negative (Negative) mg/dL Ur Blood (Man) Negative (Negative) Urine Nitrate Negative (Negative) Urine Bilirubin Negative (Negative) Urine Urobilinogen 0.2 (<2.0) mg/dL Leukocyte Esterase Rfl Negative (Negative) LUISA/UL Blood Type O Positive Antibody Screen Negative 09/16/24 Range/Units 23:06 WBC (4.5-10.0) K/mm3 RBC (4.2-5.4) M/mm3 Hgb (12.0-15.0) g/dL Hct (37.0-47.0) % MCV (80-100) fl MCH (26-34) pg MCHC (32-36) g/dl RDW (11.5-14.5) % Plt Count (150-375) k/mm3 MPV (7.4-10.4) fl Immature Gran % (Auto) (0-0.5) % Neut % (Auto) (45.5-73.1) % Lymph % (Auto) (18.3-44.2) % Briscoe % (Auto) (2.6-8.5) % Eos % (Auto) (0-4.4) % Baso % (Auto) (0.2-1.2) % Lymph # (Auto) (0.9-3.2) K/mm3 [place] # (Auto) (0.1-0.6) K/mm3 Eos # (Auto) (0-0.3) K/mm3 Baso # (Auto) (0.0-0.1) K/mm3 Abs Immat Gran (auto) (0.00-0.031) K/mm3 Absolute Neuts (auto) (1.3-6.7) K/mm3 Absolute Nucleated RBC (0.0-0.012) K/mm3 Nucleated RBC % (0.0-0.2) % Platelet Estimate (Adequate) Hypochromasia Anisocytosis Schistocytes PT 13.9 (11.1-14.7) Seconds INR 1.0 APTT 26.3 (22.3-36.8) Seconds Sodium (137-145) mmol/L Potassium (3.4-5.0) mmol/L Chloride (98-107) mmol/L Carbon Dioxide (22-30) mmol/L Anion Gap (4-12) mmol/L BUN (7-17) mg/dL Creatinine (0.7-1.0) mg/dL Estim Creat Clear Calc ml/min Estimated GFR (59 - ) Glucose (65-110) mg/dL Calcium (8.4-10.2) mg/dL Total Bilirubin (0.2-1.3) mg/dL AST (14-36) U/L ALT (6-35) U/L Alkaline Phosphatase (38-126) U/L Troponin I < 0.012 (0.000-0.034) ng/mL Total Protein (6.3-8.2) g/dL Albumin (3.5-5.1) g/dL Lipase (23-300) U/L Urine Color (Yellow) Urine Appearance (Clear) Urine pH (5.0-9.0) Ur Specific [place] (1.001-1.035) Urine Protein (Negative) mg/dL Urine Glucose (UA) (Negative) mg/dL Urine Ketones (Negative) mg/dL Ur Blood (Man) (Negative) Urine Nitrate (Negative) Urine Bilirubin (Negative) Urine Urobilinogen (<2.0) mg/dL Leukocyte Esterase Rfl (Negative) LUISA/UL Blood Type Antibody Screen Imaging Data Radiologist's impression: CT Abd/Pelvis STAT RAD: The appendix is normal. Bowel loops are nondilated. There is mild diverticulosis of the colon without evidence of acute diverticulitis. There is slight wall thickening involving the right side of the transverse colon dillard ggesting mild colitis. No GI hemorrhage is identified. Previous cholecystectomy. There is slight biliary duct prominence without choledocholithiasis. The liver, spleen, pancreas, adrenal glands, and kidneys are within normal limits. The abdominal aorta is mildly calcified but nondilated. Possible 3 cm fibroid in the uterus, unchanged. No free fluid in the pelvis. The urinary bladder is partially distended with a 3 mm calcification in the left posterior bladder. [id number] multilevel degenerative changes throughout the spine. No acute fracture subluxation seen. No incidental findings. ECG Data EKG #1: Attestation: I personally reviewed and interpreted this ECG as follows: ECG completion date: 09/16/24 ECG completion time: 22:28 Interpretation: Normal sinus rhythm at a rate of 67 beats per minute. SD interval 163. QRS 88. QT/QTC 408/424. Poor R-wave progression across the precordial leads. No T- wave inversions. Discharge Plan Discharge Clinical Impression: Nausea and vomiting in adult patient, Normocytic anemia, Near syncope, Abdominal pain, RUQ, Diverticulosis of colon, Colitis Patient Disposition: Home, Self-Care Condition: Stable Instructions: Antibiotic Form, Diverticulosis (DC), Acute Nausea and Vomiting (ED), Abdominal Pain (ED), Near Syncope (ED), Anemia (ED), Colitis (ED) Additional Instructions: As we discussed, you did have evidence possible colitis in your transverse colon. Maintain your hydration. The ondansetron oral disintegrating tablets can help with nausea and the dicyclomine/Bentyl can help with the abdominal cram ping/spasm. These are also safe to take with acetaminophen/Tylenol (maximum 4000 mg per day). Follow-up with primary care physician. Return to the emergency department with any new or worsening symptoms. Prescriptions: New acetaminophen 500 mg capsule 1,000 mg PO Q6H PRN (Reason: pain) Qty: 20 0RF ondansetron 4 mg tablet,disintegrating 4 mg PO Q8H PRN (Reason: nausea and vomiting) Qty: 7 0RF dicyclomine 10 mg capsule 10 mg PO BID PRN (Reason: abdominal pain) Qty: 20 0RF acetaminophen 500 mg capsule 1,000 mg PO Q6H PRN (Reason: pain) Qty: 20 0RF dicyclomine 20 mg tablet 20 mg PO BID Qty: 20 0RF ondansetron 4 mg tablet,disintegrating 4 mg PO Q8H PRN (Reason: nausea and vomiting) Qty: 7 0RF No Action tramadol 50 mg tablet 50 mg PO Q8H PRN (Reason: Pain) cephalexin 500 mg Capsule 500 mg PO Q12HR Qty: 6 0RF ferrous sulfate 325 mg (65 mg iron) Tablet,Delayed Release (Dr/Ec) 325 mg BYMOUTH DAILY@0800 Qty: 30 0RF atorvastatin 40 mg Tablet 40 mg PO HS 30 Days Qty: 30 0RF polyethylene glycol 3350 17 gram Powder In Packet 17 g PO DAILY Qty: 30 0RF hydroxyzine pamoate 50 mg capsule 50 mg PO Q8H PRN (Reason: anxiety ) Qty: 15 0RF Rx Instructions: end date 09/11/24 aspirin 81 mg Tablet,Delayed Release (Dr/Ec) 81 mg PO DAILY Qty: 30 0RF Rx Instructions: Patient to resume 09/18/24 pantoprazole 40 mg tablet,delayed release (DR/EC) 40 mg PO BID Qty: 60 0RF docusate sodium 100 mg Capsule 100 mg PO BID Qty: 60 0RF metoprolol succinate 25 mg Tablet Extended Release 24 Hr 25 mg PO BID Qty: 30 0RF albuterol sulfate 90 mcg/actuation Hfa Aerosol Inhaler 2 puff INHALATION Q4H PRN (Reason: Wheezing) 30 Days Qty: 1 0RF sertraline [Zoloft] 50 mg Tablet 50 mg PO QAM 30 Days Qty: 30 0RF cholecalciferol (vitamin D3) 25 mcg (1,000 unit) Tablet 25 mcg PO BID Qty: 60 0RF calcium carbonate-vitamin D3 [Calcium with Vitamin D] 600 mg-10 mcg (400 unit) Tablet 1 tablet PO BID Qty: 60 0RF melatonin 5 mg Capsule 5 mg PO QHS Qty: 30 0RF apixaban 5 mg Tablet 5 mg PO BID Qty: 60 0RF Rx Instructions: Resume on 09/18/24 acetaminophen 325 mg Tablet 650 mg PO Q4H PRN (Reason: Fever Or Pain) melatonin 3 mg Tablet 3 mg PO HS Rx Instructions: give along with 5mg at hs Follow-up/Referrals: NELLY,FRANCISCO REES [Primary Care Provider] - Time of Disposition: 01:50
[2024-09-16 22:01] VITALS: BP 144/78; PULSE 70; RESP 16; O2SAT 97
[2024-09-16 22:05] LABS: Basophils Absolute Auto 0.1 K/mm3 (0.0-0.1); Basophils Percent Auto 0.7 % (0.2-1.2); Eosinophils Absolute Auto 0.1 K/mm3 (0-0.3); Eosinophils Percent Auto 1.1 % (0-4.4); Hematocrit 33.4 % (37.0-47.0); Hemoglobin 9.9 g/dL (12.0-15.0); Immature Granulocyte Absolute 0.03 K/mm3 (0.00-0.031); Immature Granulocyte Percent A 0.3 % (0-0.5); Lymphocytes Absolute Auto 1.68 K/mm3 (0.9-3.2); Lymphocytes Percent Auto 17.1 % (18.3-44.2); Mean Corpuscular HGB Conc 29.6 g/dl (32-36); Mean Corpuscular Hemoglobin 25.6 pg (26-34); Mean Corpuscular Volume 86.3 fl (80-100); Monocytes Absolute Auto 0.5 K/mm3 (0.1-0.6); Monocytes Percent Auto 5.1 % (2.6-8.5); Neutrophils Absolute Auto 7.4 K/mm3 (1.3-6.7); Neutrophils Percent Auto 75.7 % (45.5-73.1); Platelet Count Result 246 k/mm3 (150-375); Red Blood Count 3.87 M/mm3 (4.2-5.4); Red Cell Distribution Width 22.3 % (11.5-14.5); White Blood Count 9.8 K/mm3 (4.5-10.0)
--- NOTE | 2024-09-16 22:07 | ECG_ITS ---
Test Date: 2024-09-16 22:28:44 Measurements Intervals [place] Rate: 67 P: 47 AR: 163 QRS: -21 QRSD: 88 T: 92 QT: 408 QTc: 433 Interpretive Statements SINUS RHYTHM CONSIDER ANTERIOR INFARCT, AGE INDETERMINATE CONSIDER INFERIOR INFARCT, AGE INDETERMINATE BORDERLINE ST-T WAVE ABNORMALITY- HIGH LATERAL LEADS ABNORMAL ECG Compared to ECG 09/10/2024 00:19:14 No significant changes Electronically Signed On 09-17-2024 06:58:32 CUPOLA PATCHER HELPER by Leonel Estrada D.O.
[2024-09-16 22:14] LABS: Alanine Aminotransferase 11 U/L (6-35); Alkaline Phosphatase 67 U/L (38-126); Anion Gap 6 mmol/L (4-12); Aspartate Amino Transferase 24 U/L (14-36); Bilirubin,Total 0.5 mg/dL (0.2-1.3); Blood Urea Nitrogen 13 mg/dL (7-17); Calcium 9.4 mg/dL (8.4-10.2); Carbon Dioxide 30 mmol/L (22-30); Chloride 105 mmol/L (98-107); Estimated CRCL calculation 70 ml/min; Estimated Glomerular Filt Rate > 60; Glucose 125 mg/dL (65-110); Lipase 100 U/L (23-300); Potassium 3.4 mmol/L (3.4-5.0); Sodium 141 mmol/L (137-145)
[2024-09-16 22:16] VITALS: BP 154/75; PULSE 68; RESP 17; O2SAT 96
[2024-09-16 22:22] LABS: Anisocytosis 3+; Hypochromasia 1+; Platelet Estimate Adequate (Adequate); Schistocytes None Seen
[2024-09-16 22:30] VITALS: BP 143/77; PULSE 84; RESP 16; O2SAT 100
[2024-09-16 22:31] VITALS: BP 143/77; PULSE 77; RESP 21; O2SAT 93
[2024-09-16] MEDS: FAMOTIDINE 20 MG/2 ML VIAL IV PUSH (22:32)
[2024-09-16] MEDS: MORPHINE SULFATE (*CRX) 4 MG/ML INJ IV PUSH (22:32)
[2024-09-16] MEDS: ONDANSETRON INJ 4 MG/2 ML VIAL IV PUSH (22:32)
[2024-09-16 22:36] LABS: Add Urine Microscopic? NO; Appearance Urine Clear (Clear); Bilirubin Urine Negative (Negative); Blood Urine Negative (Negative); Color Urine Yellow (Yellow); Glucose Urine UA Negative (Negative); Ketones Urine Negative (Negative); Leukocyte Esterase Ur Negative LEU/UL (Negative); Nitrate Urine Negative (Negative); Protein Urine Negative (Negative); Specific Grav Ur 1.018 (1.001-1.035); Urobilinogen Urine 0.2 mg/dL (<2.0); pH Urine 6.5 (5.0-9.0)
[2024-09-16 23:25] LABS: Prothrombin Time 13.9 Seconds (11.1-14.7)
[2024-09-16 23:26] LABS: Partial Thromboplastin Time 26.3 Seconds (22.3-36.8)
[2024-09-16 23:35] LABS: Troponin I < 0.012 ng/mL (0.000-0.034)
[2024-09-17 00:47] VITALS: PULSE 68; RESP 14; O2SAT 96
[2024-09-17 01:02] VITALS: PULSE 71; RESP 14; O2SAT 97
[2024-09-17 01:15] VITALS: PULSE 67; RESP 14; O2SAT 98
[2024-09-17] MEDS: DICYCLOMINE HCL 10 MG CAPSULE 20 MG PO (01:52)
[2024-09-17 02:15] VITALS: PULSE 79; RESP 15; O2SAT 97
[2024-09-17 02:40] VITALS: BP 133/68; PULSE 79; RESP 14; O2SAT 97
== END 2024-09-17 03:30 | disposition home or self-care (01) ==
PROVIDERS: Emergency Provider Student in an Organized Health Care Education/Training Program; PCP Nurse Practitioner Family
DX: K52.9 Noninfective gastroenteritis and colitis, unspecified (principal); K57.90 Diverticulosis of intestine, part unspecified, without perforation or abscess without bleeding; R55 Syncope and collapse; D64.9 Anemia, unspecified; I25.10 Atherosclerotic heart disease of native coronary artery without angina pectoris; I48.91 Unspecified atrial fibrillation; I69.354 Hemiplegia and hemiparesis following cerebral infarction affecting left non-dominant side; I50.30 Unspecified diastolic (congestive) heart failure; I11.0 Hypertensive heart disease with heart failure; E78.5 Hyperlipidemia, unspecified; E11.9 Type 2 diabetes mellitus without complications; K21.9 Gastro-esophageal reflux disease without esophagitis; F41.9 Anxiety disorder, unspecified; F32.A Depression, unspecified; Z85.44 Personal history of malignant neoplasm of other female genital organs; Z90.49 Acquired absence of other specified parts of digestive tract; Z79.82 Long term (current) use of aspirin; Z79.899 Other long term (current) drug therapy; R93.89 Abnormal findings on diagnostic imaging of other specified body structures; R94.31 Abnormal electrocardiogram [ECG] [EKG]
CPT/HCPCS: 36415; 71046; 74177; 80053; 81003; 83690; 84484; 85025; 85610; 85730; 86850; 86900; 86901; 93005; 96374; 96375; 99284; A9270; J2270; J2405; Q9967

== ENCOUNTER 2025-04-09 17:46 | Emergency (ER) | payer MEDICARE, SELFPAY ==
--- NOTE | ~2025-04-09 | CT_ITS ---
EXAMINATION: CT brain wo con DATE: 04/09/2025 22:41 INDICATION: dizziness . TECHNIQUE: Computed tomography (CT) of the head was performed without intravenous contrast. The mA wa s adjusted according to patient size. Iterative reconstruction technique was employed. The dose-lengt h product was 605.33 mGy-cm. COMPARISON: 07/28/2012. FINDINGS: Thin extra-axial collection running in an AP direction along the superior margin of the craniotomy de fect measuring up to 4 mm in greatest thickness. No intraparenchymal hemorrhage detected. No hydrocephalus, mass, or herniation. No acute ischemic infarct. Unremarkable dural venous sinus attenuation. No acute osseous abnormality. Large craniotomy defect over the right hemisphere. Right sphenoid opacification with volume loss and surrounding sclerosis, retention cyst or polyp in t he left inferior maxillary sinus, the remaining aerated spaces are clear. Extensive encephalomalacia involving the right cerebral hemisphere. Dystrophic calcification adjacent to the right lateral ventricle. Mild ex vacuo dilation of the right lateral ventricle. 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 Atherosclerotic intracranial calcifications. Mild atrophy and chronic whi te matter change. IMPRESSION: Thin subdural collection over the superior aspect of the right hemisphere, may represent subdural hem orrhage or chronic post surgical change. No recent post surgical imaging is available for comparison. Chronic right sphenoid sinusitis. Potential small volume subdural hemorrhage versus post surgical change reported telephonically to Dr David Hampton by Dr. Healy at 10:54 PM on 04/09/2025. Reviewed, dictated and finalized at location K. IMPRESSION: Thin subdural collection over the superior aspect of the right hemisphere, may represent subdural hemorrhage or chronic post surgical change. No recent post s urgical imaging is available for comparison. Chronic right sphenoid sinusitis. Potential small volume subdural hemorrhage versus post surgical change reported telephonically to Dr. Hampton by Dr. Healy at 10:54 PM on 04/09/2025.
--- NOTE | ~2025-04-09 | CT_ITS ---
EXAMINATION: CT abdomen pelvis wo con DATE: 04/09/2025 22:42 INDICATION: c/f constipation TECHNIQUE: Computed tomography (CT) of the abdomen and pelvis was performed without intravenous contr ast. Automated exposure control and iterative reconstruction technique were employed. The dose-length product was 1034.28 mGy-cm. COMPARISON: 09/16/2024. FINDINGS: Lower thorax: Coronary artery calcifications. Bilateral dependent scar/atelectasis. Liver: Normal. Biliary/Gallbladder: Gallbladder is absent. No bile duct dilation. Pancreas: Moderate atrophy. Spleen: Normal. Adrenals:No mass. Kidneys: No suspicious mass, obstructing stone, or hydronephrosis. GI tract: No small or large bowel dilation. Mild distal sigmoid and rectal wall thickening/edema. Nor mal appendix. Diverticulosis without diverticulitis. Mesentery/Peritoneum: No ascites, mass, or free air. Retroperitoneum: No mass. Atherosclerotic calcifications of intra-abdominal arterial vessels. Pelvis: Partially distended urinary bladder with mild wall thickening and stranding. Tiny calcificati on in the dependent urinary bladder. Fibroid uterus. Normal bilateral ovaries. Soft Tissues: Moderate midline supraumbilical and small umbilical uncomplicated appearing fat-contain ing hernias Bones: No acute osseous finding. Scoliosis. Multilevel severe facet arthropathy. Severe degenerative disc disease L3-4. Severe central canal narrowing at L3-4 secondary to degenerative changes. IMPRESSION: Small intraluminal bladder calcification. Bladder wall thickening and stranding, as can be seen with cystitis, correlate with urinalysis. Distal sigmoid and rectal wall thickening may be secondary to colitis/proctitis in the appropriate cl inical context. Reviewed, dictated and finalized at location K. IMPRESSION: Small intraluminal bladder calcification. Bladder wall thickening and stranding , as can be seen with cystitis, correlate with urinalysis. Distal sigmoid and rectal wall thickening may be secondary to colitis/proctitis in the appropriate clinical context.
--- NOTE | ~2025-04-09 | CT_ITS ---
EXAMINATION: CT cervical spine wo con DATE: 04/09/2025 22:41 INDICATION: c/o neck pain TECHNIQUE: Computed tomography (CT) of the cervical spine was performed without intravenous contrast. Automated exposure control and iterative reconstruction technique were employed. The dose-length pro duct was 284.92 mGy-cm. COMPARISON: 01/16/2024. FINDINGS: Vertebral Body Alignment: Intact. Craniocervical and atlantoaxial alignment: Moderate degenerative change. Alignment intact. Osseous structures/fracture: No evidence of a lytic or blastic process in the visualized spine. No e vidence of acute fracture. Cervical soft tissues: The paraspinal soft tissues planes are maintained. 1.4 cm partially calcified right thyroid nodule. Degenerative changes: Multilevel moderate degenerative disc disease. No severe central canal or neura l foraminal narrowing. IMPRESSION: No acute fracture or traumatic malalignment in the cervical spine. Right thyroid nodule, recommend nonemergent, outpatient thyroid ultrasound for further characterizati on. Reviewed, dictated and finalized at location K. IMPRESSION: No acute fracture or traumatic malalignment in the cervical spine. Right thyroid nodule, recommend nonemergent, outpatient thyroid ultrasound for further characterization.
--- OUTSIDE RECORDS SUMMARY | 2025-04-09 17:49 | XMS_ITS | CONTINUITY OF CARE DOCUMENT ---
Author Name mariusz vee Address Unknown Organization [facility] Address [address] [facility] [address] [place] [address] Phone [phone] Care Team Providers Care Architectural Sales Consultant Name Role Phone Oneida Hardwick MD Unavailable [phone] RYAN CLARK MD Unavailable [phone] RYAN CLARK MD Unavailable [phone] INSURANCE PROVIDERS Payer name Policy type / Coverage type [place] [employer] green party ID [employer] [employer] Medicaid [id number] [employer] [employer] Medicare [id number]
--- OUTSIDE RECORDS SUMMARY | 2025-04-09 17:49 | XMS_ITS ---
Author Organization [facility] Care Team Providers Care Concrete Technician Name Role Phone Naif Goncalves Unavailable Unavailable Allergies and adverse reactions Code CodeSystem Substance Reaction Severity StartDate Concern Status 66981 RXNORM Sulfamethoxazole Unknown 03/28/20[address] Reyno Unknown 03/28/2024 active 7454 RXNORM Nitrofurantoin Unknown 03/28/2024 active 2670 RXNORM Codeine Unknown 03/28/2024 active 15391 RXNORM Cefdinir Unknown 03/28/2024 active Care Team Name Role Address Phone Organization Barron Goncalves PCP [address] [place] [address], [place], [place], [facility], [facility] (Office): : [facility] 03/28/2024 - 03/28/2024 Problems Problem # Description Date of onset Resolved Date Code CodeSystem Concern Status 1 ANEMIA IN OTHER CHRONIC DISEASES CLASSIFIED ELSEWHERE 03/28/[address] active 2 ANXIETY DISORDER, UNSPECIFIED 03/28/[address] active 3 UPTON'S PALSY 03/28/[address] acti ve 4 CEREBRAL INFARCTION DUE TO EMBOLISM OF RIGHT MIDDLE CEREBRAL ARTERY 03/28/[address] active 5 CHRONIC ATRIAL FIBRILLATION, UNSPECIFIED 03/28/[address] active 6 DEPRESSION, UNSPECIFIED 03/28/[address] active 7 DIABETES MELLITUS DUE TO UNDERLYING CONDITION WITH HYPERGLYCEMIA 03/28/[address] active 8 DIFFICULTY IN WALKING, NOT ELSEWHERE CLASSIFIED 03/28/[address] active 9 ESSENTIAL (PRIMARY) HYPERTENSION 03/28/[address] active 10 GASTRO-ESOPHAGEAL REFLUX DISEASE WITHOUT ESOPHAGITIS 03/28/[address] active 11 GENERALIZED ANXIETY DISORDER 03/28/[address] active 12 HEMIPLEGIA AND HEMIPARESIS FOLLOWING CEREBRAL INFARCTION AFFECTING UNSPECIFIED SIDE 03/28/[address] active 13 HYPERLIPIDEMIA, UNSPECIFIED 03/28/[address] active 14 HYPOKALEMIA 03/28/[address] active 15 INSOMNIA, UNSPECIFIED 03/28/[address] active 16 NAUSEA 03/28/[address] active 17 PAIN IN UNSPECIFIED JOINT 03/28/[address] active 18 PERSONAL HISTORY OF COVID-19 03/28/[address] active 19 UNSPECIFIED COMBINED SYSTOLIC (CONGESTIVE) AND DIASTOLIC (CONGESTIVE) HEART FAILURE 03/28/[address] active 20 VITAMIN B12 DEFICIENCY ANEMIA, UNSPECIFIED 03/28/[address] active 21 WEAKNESS 03/28/[address] active Reason for Referral No Reasons for Referral Entered Social History Social History Observation Description Start Date End Date Code Code System Current Smoking Status Tobacco smoking consumption unknown 055356013 SNOMED CT Sex Assigned At Female 1960 33544-3 LOINC Gender Identity Female [id number] Vital Signs Code Code System Vitals Name Values and Units Timing Information 83653-4 LOINC Pain Level Value=0.0 03/28/2024 9279-1 LOINC Respiratory Rate Value=18.0 Units=/m in 03/28/2024 8462-4 [facility] Blood Pressure-Diastolic Value=74 Un its=mmHg 03/28/2024 8480-6 [facility] Blood Pressure-Systolic Tcfnp=937 Un its=mmHg 03/28/2024 8310-5 [facility] Body Temperature Value=97.8 Units= F 03/28/2024 8867-4 [facility] Heart rate Value=74.0 Units=/min 8302-2 [facility] Height Value=60.0 Units=Inches 03/28/2024 34398-6 [facility] O2 % BldC Oximetry Value=95.0 Units= % 03/28/2024
[2025-04-09 17:50] VITALS: BP 106/66; PULSE 70; RESP 17; TEMP 36.5; O2SAT 95
--- OUTSIDE RECORDS SUMMARY | 2025-04-09 17:50 | XMS_ITS | Data Portability ---
Author Organization [facility] Address [address] [place] [address] [place] [address] Assessment Encounter Date Assessment Date Assessment LastModified by Organization Details LastModified Time 06/25/2020 06/25/2020 Time spent in visit is a total of 31 mins with at least 50% of visit consisting of counseling and review of plan of care. Not available 06/25/2020 12:14:27 Plan of Treatment Reminders Order Date Submit Date Provider Last Modified By Organization Details Last Modified Time Details Appointments None recorded. Lab None recorded. Referral dermatolog ist referral [address] [facility], [facility] [place], [address], 1 16:00:59 Procedures None recorded. Surgeries None recorded. Imaging US, pelvis, complete 2019 [facility], [address], [address], [place], [address], 1 05:02:42 Medication Orders nystatin-t riamcinolo ne 100,000 unit/gram- 0.1 % topical ointment 2019 020 INTERFACE [id number], [address], [place], [address], 0 11:23:09 Patient TargetsNo targets recorded. 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 Referral for L ocalized eruption of skin Referring Physician: Zuleika Juan, SURVEY CAD TECHNICIAN, Encounter Date: 06/25/2020 Results Created Date Observation Date Name Description Value Unit Range Abnormal Flag Note LastModifiedBy Organization Detail LastModifiedTime 06/25/20 20 06/27/2020 pap, LB Pap test thin prep Negati ve for Intrae pithel ial Lesion or Malign tanmay normal ACCES LILIYA #: [id number] Sourc e: Cervi uyen/E ndoce rvica l LMP: 11/08 Date Taken : 06/25 Speci men Type: ThinP rep Vial Date Repor chay: 2019 Clini uyen Data: Cytot ech: Marie castillo CT( CP) Date Repor chay: 2019 Speci men Adequ acy: Satis facto ry for evalu ation Gener al Categ oriza tion: NEGAT JONATHAN FOR INTRA EPITH ELIAL LESIO N OR MALIG YOLIS Inter preta tion/ Resul t: Atrop hy This speci men has been trevor zed by the ThinP rep Imagi ng Syste m, an inter activ e compu ter syste m which duncan ts the lab in the scree marquise of ThinP rep Pap Test slide sDavid rodriguez imagi ng, the slide was revie wed by a Cytot echno logis t and/o r Patho logis t. D N A A S S A Y S R E P O R T TEST NAME RESUL TS ----- ---- ----- -- HPV High Risk Scree n (TMA) ThinP rep Vial The human papil lomav irus (HPV) High Risk Scree n is an FDA-a pprov ed in-vi tro ampli fied nucle ic acid test for the quali tativ e detec tion of E6/E7 viral mRNA. Resul ts shoul d be corre lated with patie nt prese ntati on, histo ry, cervi uyen cytol ogy and other clini uyen and labor atory findi ngs. See https ://Hallspot/s ites/ defau lt/fi 018-0 /- [id number] _002_ 01.pd f for barney er infor ayleen n. Test perfo rmed by [employer] [facility], [address], [place] [address] , Estevan Olivas ra, , Labor atory Dire tor. HPV High Risk *HPV NOT DETEC CHAY (TYPE S 16, 18, 31, 33, 35, 39, 45, 51, 52, 56, 58, 59, 66, 68) *HPV: The human papil lomav irus (HPV) High Risk Fabby ceron is an FDA-a pprov ed in-vi tro ampli fied nucle ic acid test for the quali tativ e detec tion of E6/E7 viral mRNA. Resul ts lurdes ruiz be corre lated with patie nt prese ntati on, histo ry, cervi uyen cytol ogy and other clini uyen and labor atory findi ngs. See https ://Hallspot/s ites/ defau lt/fi 018-0 /AW- [id number] _002_ 01.pd f for barney er infor ayleen n. Test perfo rmed by [employer] [facility], [address], [place] [address] , Estevan Olivas ra, , Labor atory Dire tor. End of Repor t Techn ical servi nilda provi ded by [employer] [facility], [facility] [employer] [facility], [address] [place] [address] Master Singleton MD, Labor atory Dire tor. Case revie wed and diagn osis rende red at [employer] [facility], [facility], [address] [place] [address] Master Singleton MD, Labor [facility] tor. CONFI DENTI AL Not Available [facility] -[facility] ([facility]) [address], [place], [address], 06/27/2020 11:43:42 06/25/20 20 06/27/2020 HPV DNA, high- risk HPV high risk NOT DETECT ED normal Not Available [facility] ([facility]) [address], [place], [address], 06/27/2020 11:43:42 Result Notes None recorded. Problems Name Problem SNOMED Code Status Onset Date Resolution Date Notes Provider Name and Address Organization Details Recorded Time Polyp of cervix 99122910 Active 2017 Polyp of cervix uteri;Prac unique ID: 0001 Not Available [facility] 0 16:02:46 Polyp of corpus uteri 02987667 Active 2017 Polyp of corpus uteri;Prac unique ID: 0001 Not Available [facility] 0 16:02:46 Imaging result abnormal 003356963 Active 2017 Abnormal findings on diagnostic imaging of body structures ;Practice ID: 0001 Not Available [facility] 0 16:02:46 Screening for malignant neoplasm of rectum Active 2016 Encounter for screening for malignant neoplasm of rectum;Pra ctice ID: 0001 Not Available [facility] 0 16:02:[address] Concept Active 2016 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 Procedures Surgical History Date Name Laterality Status Provider Name and Address Organization Details Recorded Time Cholecystectomy completed , [facility] 06/25/2020 10:58:50 Dilation and Curettage completed , [facility] 06/25/2020 10:58:56 Hysteroscopy completed , [facility] 06/25/2020 10:59:02 tonsilectomy/adenoi ds completed , [facility] 06/25/2020 10:59:08 Imaging Results None recorded. Procedure Notes None recorded. Medical Equipment None Reported. Allergies Allergen ID Allergen Name Allergen Category Reaction Reaction Severity Criticality Documentation Date Start Date Code Code System Note Provider Name and Address Organization Details Recorded Time 1731 codeine medicatio n Not available Not available Not available 06/25/2020 2670 [facility] 0 10:57:23 Medications Name Sig Start Date Stop Date Status Note LastModified by Organization Details LastModified Time atorvasta tin 40 mg tablet 06/25 completed Not Available Not Available Not Available BD Alcohol Swabs 06/25 completed Not Available Not Available Not Available cefuroxim e axetil 250 mg tablet 06/25 completed Not Available Not Available Not Available meloxicam 15 mg tablet 06/25 completed Not Available Not Available Not Available amlodipin e 5 mg tablet take 1 tablet by oral route every day active Prescrib ed Elsewher e: Yes Loca tion: [facility] M odify By: lslodaya E ncounter DateTime : 07/05/20 17 01:00:00 PM Not Available Not Available Not Available sulfameth oxazole 800 mg-trimet hoprim 160 mg tablet 06/25 completed Not Available Not Available Not Available omeprazol e 40 mg capsule,d elayed release 06/25 completed Not Available Not Available Not Available aspirin 81 mg tablet,de layed release 06/25 completed Not Available Not Available Not Available tramadol 50 mg tablet 06/25 completed Not Available Not Available Not Available nystatin- triamcino lone 100,000 unit/gram -0.1 % topical ointment active Not Available Not Available Not Available amoxicill in 875 mg tablet 06/25 completed Not Available Not Available Not Available dicyclomi ne 20 mg tablet 06/25 completed Not Available Not Available Not Available meclizine 25 mg tablet 06/25 completed Not Available Not Available Not Available doxycycli ne monohydra te 100 mg capsule 06/25 completed Not Available Not Available Not Available triamcino lone acetonide 0.1 % topical ointment APPLY TO AFFECTED AREA TWICE A DAY FOR 7 DAYS active Not Available Not Available No t Available nitroglyc lillian 0.4 mg sublingua l tablet 06/25 completed Not Available Not Available Not Available omeprazol e 20 mg capsule,d elayed release 06/25 completed Not Available Not Available Not Available aspirin 81 mg chewable tablet 06/25 completed Not Available Not Available Not Available lisinopri l 5 mg tablet take 1 tablet by oral route every day active Prescrib ed Elsewher e: Yes Loca tion: [facility] odify By: kirk Triana ncounter DateTime : 07/05/20 01:00:00 PM Not Available Not Available Not Available levofloxa jose 500 mg tablet 06/25 completed Not Available Not Available Not Available methylpre dnisolone 4 mg tablets in a dose pack 06/25 completed Not Available Not Available Not Available albuterol sulfate HFA 90 mcg/actua tion aerosol inhaler 06/25 completed Not Available Not Available Not Available ketoconaz ole 2 % topical cream apply by topical route every day to the affected area(s) 2016 active Prescrib ed Elsewher e: No Locat ion: [facility] M odify By: chaya Johnson nter DateTime : 07/05/20 01:00:00 PM Not Available Not Available Not Available lisinopri l 40 mg tablet 06/25 completed Not Available Not Available Not Available ondansetr on 4 mg disintegr ating tablet 06/25 completed Not Available Not Available Not Available metformin ER 500 mg tablet,ex tended release 24 hr take 2 tablet by oral route every day with the evening meal active Prescrib ed Elsewher e: Yes Loca tion: [facility] odify By: kirk Triana ncounter DateTime : 07/05/20 01:00:00 PM Not Available Not Available Not Available amoxicill in 875 mg-potass ium clavulana te 125 mg tablet 06/25 completed Not Available Not Available Not Available omeprazol e active Not Available Not Available Not Available amlodipin e active Not Available Not Available Not Available lisinopri l active Not Available Not Available Not Available Vitamin D3 active Not Available Not Available Not Available Oysco 500/D 500 mg-5 mcg (200 unit) tablet 06/25 completed Not Available Not Available Not Available selenium sulfide 2.5 % lotion apply by topical route every day for 7 days to the affected area(s) 07/11 completed Prescrib ed Elsewher e: No Locat ion: [facility] odify By: chaya tz Encou nter DateTime : 07/05/20 01:00:00 PM Not Available Not Available Not Available OneTouch Ultra Blue Test Strip 06/25 completed Not Available Not Available Not Available OneTouch Delica Plus Lancet 33 gauge 06/25 completed Not Available Not Available Not Available Vitals Date Recorded Body height Body mass index (BMI) Body weight Systolic blood pressure Diastolic blood pressure Provider Name and Address Organization Details Last Updated DateTime 06/25/2020 154.94 cm 35.1 kg/m2 54628.18 g 137 mm[Hg] 88 mm[Hg] Varsha Gomez [place] - [facility] 0 11:03:59 Social History None recorded. Functional Status None recorded. Mental Status None recorded. Family History Relationship Description Onset Age of this Age Resolved Age Notes LastModified by Organization Details LastModified Time Father Anemia [email or web address] Not available 11:05:00 Father Hyperlipidem ia [email or web address] Not available 2019 11:05:34 Father Congestive heart failure [email or web address] Not available 2019 11:05:53 Father Hypertensive disorder [email or web address] Not available 2019 11:06:22 Father Leukemia [email or web address] Not available 06/25/2020 11:06:58 Mother Anemia [email or web address] Not available 11:05:00 Mother Carcinoma in situ of lung [email or web address] Not available 11:06:49 Sister Hyperlipidem ia [email or web address] Not available 2019 11:05:34 Sister Congestive heart failure [email or web address] Not available 2019 11:05:53 Sister Hypertensive disorder [email or web address] Not available 2019 11:06:22 Brother Hyperlipidem ia [email or web address] Not available 2019 11:05:34 Brother Congestive heart failure [email or web address] Not available 2019 11:05:53 Brother Hypertensive disorder [email or web address] Not available 2019 11:06:22 Brother Family history of malignant neoplasm [email or web address] Not available 2019 11:07:17 Maternal Uncle Hyperlipidem ia [email or web address] Not available 2019 11:05:34 Maternal Uncle Hypertensive disorder [email or web address] Not available 2019 11:06:22 Paternal Uncle Hyperlipidem ia [email or web address] Not available 2019 11:05:34 Paternal Uncle Hypertensive disorder [email or web address] Not available 2019 11:06:22 Maternal Aunt Hyperlipidem ia [email or web address] Not available 2019 11:05:34 Maternal Aunt Hypertensive disorder [email or web address] Not available 2019 11:06:22 Maternal Grandmother Family history of malignant neoplasm [email or web address] Not available 2019 11:07:17 Maternal Grandfather Family history of malignant neoplasm [email or web address] Not available 2019 11:07:17 Notes:Brother: Congenital he art disease, Hyperlipidemia, Hypertension, Cancer, unknown Father: Anemia, Leukemia, Hyperlipidemia, Congenital heart disease, Hypertension Maternal aunt: Hyperlipidemia, Hypertension Maternal grandfather: Cancer, unknown Maternal grandmother: Cancer, unknown Maternal uncle: Hypertension, Hyperlipidemia Mother: Cancer, lung, Anemia Paternal aunt: Hypertension, Hyperlipidemia Paternal uncle: Hypertension, Hyperlipidemia Sister: Hyperlipidemia, Hypertension, Congenital heart disease Medical History Condition Response Diabetes Y Anemia Y Hypertension Y Gynecological History Statement/Question Response Current Control Method None Obstetrics History GPAL:G 0 P 0 0 0 0 Past Encounters Encounter ID Performer Location Encounter Start Date Encounter Closed Date Diagnosis/Indication Diagnosis SNOMED-CT Code Diagnosis ICD10 Code Diagnosis Note [id number] [facility] [address] [address] 06/25/2020 10:56:49 06/25/2020 12:21:33 Localized eruption of skin 078063693 R21 Since this is a recurring issue we agreed to use of mycolog and then referral to Derm for further evaluation /managemen t moving forward. She agrees. Postmenopa usal bleeding 23145028 N95.0 Unsure if recent instance of vaginal bleeding is from skin irritation or uterine origin . Nothing found on exam today but pap/hpv done as cervix irritated; US ordered for further evaluation . Health Concerns Section Related Observation LastModified by Organization Detai ls LastModified Time None Recorded Concern Status LastModified by Organization Details LastModified Time None Recorded Advance Directives Directive None Recorded Payers None recorded. Notes Date Note Type Note Provider Name and Address Organization Details Recorded Time 06/25/2020 text/html Patient is a 59y o white female here with two main concerns: 1. PMB Approx 1wk ago she had 2-3 instances in the same week of possible PMB with wipe. She thought perhaps it was UTI related but urine testing from PCP came back wnl. She was told to be evaluated by her ENVIRONMENTAL SERVICES ATTENDANT. The VB has since stopped. She had no pain then or now. Only visualized light red spotting on toilet tissue. Not SA. Has been postmenopause for >20yrs. 2. Rash Vulva/Groin She reports she continues to have issues with recurrent rash in area of vulva/groin for years. Has used some ointment which helped in the past. Rash is red, dry, itchy. She has lot weight & this does not seem to help. Keeps herself clean & dry in this area. [facility] [address], [place], [address], [facility] 06/25/2020 12:14:45 OBGyn Episode Ob Episode Information Episode Created Date Number of Fetuses Patient Bloodtype Patient rh Status Prepregnancy Weight lbs Domestic Partner Domestic Partner Phone Father Name Forest Fire Specialist Supervisor Status 06/25/20 20 1 CLOSED Fetus Data First Name Last Name Admitted to NICU Weight (g) Sex Living Outcome Pediatric Complications Fetus ID Race Codes Race Delivery Type [id number] Emery Calculation Initial Emery Date Initial Exam Date Initial Exam Provider Initial Ultrasound Date Last Menstrual Period Date Ultra Sound Weeks Gestation 0 Eighteen To Twenty Week Emery Update Ultra Sound Date Fundal Height At Umbil Quickening Date Ultra Sound Latest Weeks Gestation Final Emery Confirmed By Final Emery Confirmed Date Final Emery Date Ultra Sound Latest Days Gestation 0 0 Menstrual History Last Menstrual Date Menses Monthly On Bcp Conception Prior Menses Frequency Hcg Plus Date Menarche Onset Age Delivery Information Delivery Date Delivery Type Labor Anesthesia Weeks Gestation Incision Type Labor Labor Length Hrs Delivered By Post Complications Tubal Sterilization Discharge Date Comments 9 Discharge Information Feeding Method Contraceptive Method Maternal HG B and HCT Levels
--- OUTSIDE RECORDS SUMMARY | 2025-04-09 17:50 | XMS_ITS | Data Portability ---
Author Organization [facility], [facility] Address [address] [place] [address] Assessment No assessment recorded. Plan of Treatment Reminders Order Date Submit Date Provider Last Modified By Organization Details Last Modified Time Details Appointments None record ed. Lab None record ed. Referral None record ed. Procedures None record ed. Surgeries None record ed. Imaging None record ed. Medication Orders None record ed. Patient TargetsNo targets recorded. Patient InstructionsNo instructions recorded. Reason for Referral None Reported. Procedures Surgical History Date Name Laterality Status Provider Name and Address Organization Details Recorded Time 12/09/19 22 Most Recent Mammogram completed Georgina Maddox [facility] 05/26/2022 16:24:12 11/08/19 20 Date of Last Pap Smear completed Georgina Maddox [facility] 05/26/2022 16:23:31 11/08/19 20 completed Georgina Maddox [facility] 05/26/2022 16:24:30 cholecystectomy completed Georgina Maddox [facility] 05/26/2022 16:25:14 Remove tonsils and adenoids completed Georgina Maddox [facility] 05/26/2022 16:25:31 Imaging Results None recorded. Procedure Notes None recorded. Medical Equipment None Reported. Allergies Allergen ID Allergen Name Allergen Category Reaction Reaction Severity Criticality Documentation Date Start Date Code Code System Note Provider Name and Address Organization Details Recorded Time 984188 codeine medicatio n Not available Not available Not available 05/26/2022 9690 RxNorm Georgina hurd [facility] 16:20:38 Medications Name Sig Start Date Stop Date Status Note LastModified by Organization Details LastModified Time atorvastatin 40 mg tablet TAKE 1 TABLET BY MOUTH EVERY DAY WITH SUPPER active Not Available Not Available No t Available metformin 500 mg tablet Take 1 tablet twice a day by oral route. active Not Available Not Available No t Available doxycycline hyclate 100 mg capsule TAKE 1 CAPSULE BY MOUTH TWICE A DAY FOR 10 DAYS active Not Available Not Available No t Available azithromycin 250 mg tablet TAKE 2 TABLETS BY MOUTH TODAY, THEN TAKE 1 TABLET DAILY FOR 4 DAYS active Not Available Not Available No t Available hydrocodone 5 mg-acetamino phen 325 mg tablet TAKE 1 TABLET BY MOUTH EVERY 6 HOURS NEEDED FOR ACUTE PAIN active Not Available Not Available N ot Available ondansetron HCl 4 mg tablet TAKE 1 TABLET BY MOUTH EVERY 8 HOURS NEEDED active Not Available Not Available No t Available amlodipine 5 mg tablet TAKE 1 TABLET BY MOUTH EVERY DAY active Not Available Not Available No t Available aspirin 81 mg tablet,delay ed release TAKE 1 TABLET BY MOUTH EVERY DAY active Not Available Not Available No t Available tramadol 50 mg tablet TAKE 1 TABLET BY MOUTH EVERY 6 HOURS NEEDED FOR CHRONIC PAIN active Not Available Not Available No t Available terbinafine HCl 250 mg tablet TAKE 1 TABLET BY MOUTH EVERY DAY active Not Available Not Available No t Available methocarbamo l 750 mg tablet TAKE 1-2 TABLETS BY MOUTH 3 TIMES DAILY NEEDED FOR SPASMS active Not Available Not Available N ot Available OneTouch Ultra Test strips USE TO TEST ONCE DAILY NEEDED active Not Available Not Available No t Available meclizine 25 mg tablet TAKE 1/2 (ONE HALF) A TABLET BY MOUTH 3 TIMES DAILY NEEDED FOR DIZZINESS active Not Available Not Available No t Available omeprazole 20 mg capsule,all yed release Take 1 capsule every day by oral route. active Not Available Not Available No t Available metoprolol succinate ER 25 mg tablet,exten ded release 24 hr TAKE 1 TABLET BY MOUTH TWICE A DAY active Not Available Not Available No t Available methylpredni solone 4 mg tablets in a dose pack TAKE 6 TABLETS ON DAY 1 DIRECTED ON PACKAGE AND DECREASE BY 1 TAB EACH DAY FOR A TOTAL OF 6 DAYS active Not Available Not Available No t Available albuterol sulfate HFA 90 mcg/actuatio n aerosol inhaler TAKE 2 PUFFS BY MOUTH EVERY 4 HOURS NEEDED active Not Available Not Available No t Available ketoconazole 2 % topical cream APPLY TOPICALLY TO RASH TWICE A DAY active Not Available Not Available Not Available lisinopril 40 mg tablet TAKE 1 TABLET BY MOUTH EVERY DAY active Not Available Not Available No t Available ondansetron 4 mg disintegrati ng tablet TAKE 1 TABLET BY MOUTH EVERY 8 HOURS NEEDED active Not Available Not Available No t Available fluticasone propionate 50 mcg/actuatio n nasal spray,suspen jese INSTILL 1 SPRAY INTO THE NOSTRIL(S) ONCE DAILY active Not Available Not Available N ot Available metformin ER 500 mg tablet,exten ded release 24 hr TAKE 1 TABLET BY MOUTH EVERY DAY active Not Available Not Available No t Available loratadine 10 mg tablet TAKE 1 TABLET BY MOUTH EVERY DAY active Not Available Not Available No t Available Alcohol Prep Pads USE ONCE DAILY NEEDED active Not Available Not Available No t Available calcium active Not Available Not Avail able Not Available amlodipine active Not Available Not Av ailable Not Available Vitamin D3 active Not Available Not Av ailable Not Available Eliquis 5 mg tablet Take 1 tablet twice a day by oral route. active Not Available Not Available No t Available metoprolol succinate ER 25 mg capsule sprinkle, ext. release 24 hr Take 1 capsule every day by oral route. active Not Available Not Available No t Available OneTouch Delica Plus Lancet 33 gauge USE TO TEST ONCE DAILY NEEDED active Not Available Not Available No t Available albuterol sulf 90 mcg/actuatio n breath activated powder inhaler,sens or Inhale 2 puffs every 4 hours by inhalation route. active Not Available Not Available No t Available aspirin 81 mg capsule Take 1 capsule every day by oral route. active Not Available Not Available No t Available Vitals Date Recorded Body height Body mass index (BMI) Body weight Systolic blood pressure Diastolic blood pressure Provider Name and Address Organization Details Last Updated DateTime 05/26/2022 154.94 cm 36.5 kg/m2 28741.33 g 140 mm[Hg] 80 mm[Hg] Georgina Maddox [facility] 16:30:05 Social History Question Answer Notes LastModified by Organizat ion Details LastModified Time Tobacco Smoking Status Never Smoker Georgina hurd, [facility] 05/26/2022 16:28:12 Are You Blind Or Do You Have Difficulty Seeing? No [email or web address] Information not available 05/26/2022 Are You Deaf Or Do You Have Serious Difficulty Hearing? No [email or web address] Information not available 05/26/2022 What Type Of Diet Are You Following? REGULAR Information not available 05/26/2022 How Many Children Do You Have? 1 [email or web address] Information not available 05/26/2022 What Is Your Relationship Status? [email or web address] Information not available 05/26/2022 Are You Sexually Active? No [email or web address] Information not available 05/26/2022 Sex: Unknown Functional Status Question Answer Note LastModified by Organizat ion Details LastModified Time Do you use any illicit or recreational drugs? No [email or web address] Information not available 05/26/2022 Do you or have you ever used any other forms of tobacco or nicotine? No [email or web address] Information not available 05/26/2022 What is your level of alcohol consumption? None [email or web address] Information not available 05/26/2022 Are you currently employed? No [email or web address] Information not available 05/26/2022 What is your exercise level? None Information not available 05/26/2022 Mental Status None recorded. Family History Nothing Reported. Medical History No medical history recorded. Gynecological History Statement/Question Response HPV Vaccine N Date of Last Pap Smear 11/08/2019 Most Recent Mammogram 12/09/2021 Current Control Method Menopause 11/08/2019 Obstetrics History GPAL:G 1 P 1 0 0 1 Type Value Full Term 1 Living 1 Total 1 Past Encounters Encounter ID Performer Location Encounter Start Date Encounter Closed Date Diagnosis/Indication Diagnosis SNOMED-CT Code Diagnosis ICD10 Code Diagnosis Note [id number] Zahar Koenig MD [facility] [address] [place] [address] 05/26/2022 15:59:10 12/29/2022 14:54:17 Health Concerns Section Related Observation LastModified by Organization Detai ls LastModified Time None Recorded Concern Status LastModified by Organization Details LastModified Time None Recorded Advance Directives Directive None Recorded Payers Insurance Date Sequence Insurance Name Policy Number Policy Mcintosh Covered Member ID Mcintosh Member ID Guarantor Name 05/26/2022 1 [facility] (MEDICAID HMO) [id number] Zaira Cason [id number] Zaira Cason Notes Date Note Type Note Provider Name and Address Organization Details Recorded Time 05/26/2022 text/html [place] on April 23 and due to vomiting. CT scan showed 2 masses on ovary. Patient states she had some heavy bleeding for 2 days about a couple weeks ago.. Review of the ER notes suggest a 3 cm mass separate from the ovary and also heterogenous thickened endometrium. Pt had been in ER reporting alot of pelvic pain and also nausea and vomiting. She has a medical hx of atrial fibrillation and was taking Eliquis. Her primary care provider is Felicia Kuo NP of [facility]. Zahra Koenig MD [facility], [place], [address], [facility] 01/24/2023 15:27:04 OBGyn Episode No OBEpisode recorded.
--- OUTSIDE RECORDS SUMMARY | 2025-04-09 17:50 | XMS_ITS ---
Author Organization [facility] Address [address] [place] [address] Phone Care Team Providers Care Vp [employer] Partnerships Name Role Phone Felicia Kuo NP Primary Care Provider [phone] Active Problems Problem Noted Date Diagnosed Date Acute dehydration 07/13/2024 Chronic low back pain 07/13/2024 Dizziness due to old head injury 07/13/2024 Gastroenteritis 07/13/2024 Hyperleukocytosis 07/13/2024 Obesity 07/13/2024 Neck pain 07/13/2024 Restless legs 07/13/2024 Sciatica 07/13/2024 Severe allergic reaction 07/13/2024 Spinal stenosis of lumbar region 07/13/2024 Tinea corporis 07/13/2024 Urinary tract infectious disease 07/13/2024 Viral gastroenteritis 07/13/2024 Right sided weakness 04/18/2024 Coronary artery disease invo lving ruby coronary artery of ruby heart without angina pectoris 04/05/2024 Abdominal pain of multiple sites 03/29/2024 Near syncope 03/28/2024 Unspecified combined systoli c (congestive) and diastolic (congestive) heart failure 03/28/2024 Generalized anxiety disorder 03/28/2024 Difficulty in walking, not elsewhere classified 03/28/2024 Pain in unspecified joint 03/28/2024 Personal history of COVID-19 03/28/2024 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) 03/08/2024 Anxiety 03/08/2024 Hypokalemia 03/08/2024 Primary insomnia 03/08/2024 Acute respiratory failure with hypoxia 02/22/202 4 Brain compression 12/30/2023 Cerebral herniation 12/30/2023 Nihss score 26 12/30/2023 Acute post-hemorrhagic anemia 11/24/2023 Cerebrovascular accident (CV A) due to embolism of right middle cerebral artery 11/23/2023 Weakness 12/30/2022 Ataxia 12/30/2022 Vitamin B12 deficiency anemia, unspecified 12/29 Overview (07/13/2024): Added automatically from request for surgery [id number] Abnormal vaginal bleeding 05/24/2022 Numbness and tingling 11/13/2021 Abnormal stress test 08/28/2021 Overview (07/13/2024): Last Assessment & Plan: 01/2020- We will proceed with [facility] for eval Chronic atrial fibrillation, unspecified 021 Overview (07/13/2024): Last Assessment & Plan: Continue with metoprolol for rate control eliquis 5mg BID for thromboprophylaxis No hx of GI bleed or current issues at present Echo ordered Chronic heart failure with preserved ejection fr action 08/28/2021 Overview (07/13/2024): Last Assessment & Plan: DD grade 1 on previous echo euvolemic on exam No need for diuretics Pneumonia due to COVID-19 virus 08/12/2021 Leg cramping 04/25/2021 Vomiting and diarrhea 04/25/2021 GA (granuloma annulare) 02/10/2021 Hiatal hernia 02/04/2021 Mass of uterine adnexa 02/04/2021 Meniere's disease 02/04/2021 Neuropathy 02/04/2021 Nonalcoholic fatty liver disease 02/04/2021 Osteopenia 02/04/2021 Loud snoring 07/01/2020 Asthma 06/07/2020 Overview (06/07/2020): Added automatically from request for surgery [id number] JUAN (obstructive sleep apnea) 06/07/2020 Overview (06/07/2020): Added automatically from request for surgery [id number] Poor dentition 06/07/2020 Overview (06/07/2020): Added automatically from request for surgery [id number] Mixed hyperlipidemia 05/09/2019 Overview (07/13/2024): Last Assessment & Plan: Statin therapy is well tolerated without any reports of Statin-associated muscle symptoms (NORMA). Target goal of LDL < 70 Currently not on statin therapy although I would recommend due to underlying DM dx - CHOLESTEROL <200 MG/DL 155 TRIGLYCERIDE <150 MG/DL 232 High HDL >40.0 MG/DL 39 Low LDL (CALCULATED) <100 MG/DL 70 NON HDL CHOLESTEROL <130 MG/DL 116 Atypical nevi 05/09/2019 Post-menopausal 05/09/2019 Type 2 diabetes mellitus 05/09/2019 Vitamin D deficiency 05/09/2019 Endometrial cancer 05/23/2018 Overview (05/23/2018): Added automatically from request for surgery [id number] Hypertensive disorder 05/18/2018 Overview (07/13/2024): On lisinopril 40mg and amlodipine 5mg daily. Managed by PCP. On lisinopril 40mg and amlodipine 5mg daily. Managed by PCP. Last Assessment & Plan: Blood pressure is well controlled with no changes in regimen at this time Encouraged to continue to monitor at home and log and call office with any concerns in future. BPPV (benign paroxysmal positional vertigo) 05/08 Overview (05/18/2018): Follows with PCP. No recent dizziness. Takes PRN meclizine. 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 Cancer, uterine 05/12/2018 Overview (07/13/2024): Pt incidentally diagnosed with uterine mass when undergoing abdominal CT for nausea/vomiting at OSH in 11/2017. Subsequent US demonstrated thickened polypoid appearing endometrium and D&C hysteroscopy on 03/23/18 revealed CAH in a polyp and [facility] pathology review revealed Grade 1 endometrial adenocarcinoma. [x] [facility] Path Review: FIGO Gr 1. [x]05/18/18 NEW visit. Full PE, vaginal exam, plan for mode of management RATLH/BSO/bSLND/Washings/poss Cysto. Consents signed. Pap obtained. Pt incidentally diagnosed with uterine mass when undergoing abdominal CT for nausea/vomiting at OSH in 11/2017. Subsequent US demonstrated thickened polypoid appearing endometrium and D&C hysteroscopy on 03/23/18 revealed CAH in a polyp and [facility] pathology review revealed Grade 1 endometrial adenocarcinoma. [x] [facility] Path Review: FIGO Gr 1. [x]05/18/18 NEW visit. Full PE, vaginal exam, plan for mode of management RATLH/BSO/bSLND/Washings/poss Cysto. Consents signed. Pap obtained. Last Assessment & Plan: -CPAP -schedule for RATLH/BSO/bSLND/washings/cystoscopy -f/u pap smear (sent HUNTER on 05/18/18) Assessment & Plan (05/18/2018 2:51 PM CDT): -CPAP -schedule for RATLH/BSO/bSLND/washings/cystoscopy -f/u pap smear (sent HUNTER on 05/18/18) Polyp of corpus uteri 03/16/2018 Overview (07/13/2024): Polyp of cervix uteri;Practice ID: [id number] Polyp of corpus uteri;Practice ID: 0001 Abnormal finding of diagnostic imaging 8 Overview (07/13/2024): Abnormal findings on diagnostic imaging of body structures;Practice ID: 0001 Lung mass 09/17/2014 Overview (05/18/2018): Pt noted to have lung nodule on CXR (single view) 08/28/2014. Follow-up 2 view CXR 09/27/2014 revealed no nodule and suspected nodule to be artifact on prior image. Current Treatment and Therapy Plans No current plan information found. Past Treatment and Therapy Plans No past plan information found. Lifetime Dose Tracking * Chemical Lifetime Dose Automatic Entry Manual Entr y Air kerma at the reference point (Ka,r) 1,963 mGy 0 mGy 1,963 mGy
--- OUTSIDE RECORDS SUMMARY | 2025-04-09 17:50 | XMS_ITS | Data Portability ---
Author Organization [facility] Address [address] [place] [address] Assessment No assessment recorded. Plan of Treatment Reminders Order Date Submit Date Provider Last Modified By Organization Details Last Modified Time Details Appointments None recorded. Lab culture, urine 2017 018 [facility], [address] [place] [address], [address], [place], [address], 8 06:40:21 HbA1c (hemoglobi n A1c), blood 2017 018 [facility] In-Office Order, Internal Use Only DO Not Attach Compendium DO Not Attach Compendium, Do Not Delete/merge, [id number] 8 12:29:35 Referral ophthalmol ogist referral - Please call patient to schedule appt. Thank you 2018 019 audrey Vega, [address], [place], [address], 9 08:54:58 Procedures None recorded. Surgeries None recorded. Imaging MAMMO, screening, bilateral 2018 019 [facility] (Radiology), [address], [place], [address], 9 13:31:57 Medication Orders amoxicilli n 500 mg-potassi um clavulanat e 125 mg tablet 2018 019 [facility], [address] [place], [address], 9 13:43:05 duloxetine 60 mg capsule,de layed release 2018 019 [facility], [address] [place], [address], 9 16:48:09 albuterol sulfate 2.5 mg/3 mL (0.083 %) solution for nebulizati on 2017 018 [facility], [address] [place], [address], 8 15:55:25 methylpred nisolone acetate 40 mg/mL suspension for injection [address] [facility], [address] [place], [address], 9 15:57:39 Zithromax Z-Meet 250 mg tablet [facility] [address] [facility] [facility], [address] [place], [address], 9 15:58:05 Pepcid 20 mg tablet 2017 018 [facility], [address] [place], [address], 8 16:02:49 Patient TargetsNo targets recorded. Patient Instructions Encounter Date Encounter Id Patient Instructions Last Modified By Organization Details Last Modified Time 10/21/2018 [id number] Urinary Tract Infection (UTI) in Women: Care Instructions [facility] Not available 10/21/2018 12:17:19 learning about type 2 [facility] Not available 10/21/2018 12:17:19 type 2 diabetes: care instructions [facility] Not available 10/21/2018 12:17:19 11/10/2018 [id number] learning about type 2 diabetes [facility] Not available 11/10/2018 16:31:19 type 2 diabetes: care instructions [facility] Not available 11/10/2018 16:31:19 learning about mood disorders [facility] Not available 11/10/2018 16:32:58 02/14/2019 [id number] mammogram: about this test [email or web address] Not available 02/14/2019 13:31:37 bronchitis: care instructions sieh Not available 02/14/2019 13:31:37 sore throat: car e instructions si Not available 02/14/2019 13:31:37 Reason for Referral [employer] Installation Technician Referral for Blurring of visual image Please call patient to schedule appt. Thank you Referring Physician: Renetta Ford, Internal Medicine, Encounter Date: 02/14/2019 Results Created Date Observation Date Name Description Value Unit Range Abnormal Flag Note LastModifiedBy Organization Detail LastModifiedTime 10/21/20 18 10/23/2018 cultu re, urine urine culture, routine Final report Not Available [facility] ([facility]) [address] [facility], [place], [address], 10/23/2018 06:40:21 10/21/20 18 10/23/2018 cultu re, urine result 1 Commen t Mixed uroge nital nathan Less than 10,00 0 colon ies/m L Not Available [facility] ([facility]) [address] [facility], [place], [address], 10/23/2018 06:40:21 10/21/20 18 10/21/2018 HbA1c (hemo globi n A1c), blood HbA1c 6.1% Not Available In-Office Order Internal Use Only DO Not Attach Compendium DO Not Attach Compendium, Do Not Delete/merge, [id number] 10/21/2018 11:34:07 09/27/20 18 09/27/2018 CT, abdom en + pelvi s, w/ contr ast No observ ation record ed. [email or web address] Not Available 2017 15:27:07 09/28/20 18 09/27/2018 XR, chest , 2 view No observ ation record ed. [email or web address] Not Available 2017 15:26:54 10/11/20 18 09/27/2018 CT, abdom en + pelvi s, w/ contr ast No observ ation record ed. [email or web address] [facility] [address] [place], [address], 10/13/2018 13:56:34 01/08/20 24 01/08/2024 XR, shoul tab No observ ation record ed. [email or web address] [facility] [address] [place], [address], 01/11/2024 17:47:46 01/11/20 24 01/08/2024 XR, shoul tab No observ ation record ed. [email or web address] Not Available 01/10 15:06:10 01/21/20 24 01/21/2024 XR, chest No observ ation record ed. [address] [place], [address], 01/28/2024 21:52:58 01/21/20 24 01/21/2024 CT, angio gram, chest , w/ contr ast No observ ation record ed. [address] [place], [address], 01/28/2024 21:52:59 02/26/20 24 02/26/2024 CT, head, w/o contr ast No observ ation record ed. [email or web address] [facility] [address] [place], [address], 02/28/2024 09:48:26 Result Notes None recorded. Problems Name Problem SNOMED Code Status Onset Date Resolution Date Notes Provider Name and Address Organization Details Recorded Time Acute pharyngitis 513687964 Active Renetta Ford MD Attn: True jones,[address] [facility], [place], [address], [facility] 5 17:12:10 Neck pain 07273142 Active Renetta Ford MD Attn: True jones,[address], [place], [address], [facility] - [facility] 5 16:12:40 Abdominal pain 36303216 Active Renetta Ford MD Attn: Accountin g,[address] [facility], [place], [address], [place] [facility] 5 16:58:42 Abdominal mass 434540994 Active Renetta Ford MD Attn: Accountin g,[address] [facility], [place], [address], [place] [facility] 5 12:03:59 Non-alcoholic fatty liver 490580083 Active Renetta Ford MD Attn: Accountin g,[address] [facility], [place], [address], [place] [facility] 6 15:11:51 Morbid obesity 913687005 Active Renetta Ford MD Attn: Accountin g,[address] [facility], [place], [address], [place] [facility] 5 11:56:45 Benign hypertension 87138676 Active Renetta Ford MD Attn: Accountin g,[address] [facility], [place], [address], [place] [facility] 5 11:56:44 Asthma 813888920 Active Renetta Ford MD Attn: Accountin g,[address] [facility], [place], [address], [place] [facility] 6 15:11:51 Osteopenia 583590238 Active Renetta Ford MD Attn: Accountin g,[address] [facility], [place], [address], [place] [facility] 6 15:11:51 Restless legs 73442982 Active Renetta Ford MD Attn: Accountin g,[address] [facility], [place], [address], [place] [facility] 5 11:56:45 Nausea present 793421071 Active Renetta Ford MD Attn: Accountin g,[address] [facility], [place], [address], [place] [facility] 6 15:11:51 Chronic low back pain 254429235 Active Renetta Ford MD Attn: Accountin g,[address] [facility], [place], [address], [place] [facility] 6 14:41:20 Hiatal hernia 83499930 Active Renetta Ford MD Attn: Accountin g,[address] [facility], [place], [address], [place] [facility] 6 14:41:20 Acid reflux 529418534 Active Renetta Ford MD Attn: Accountin g,[address] [facility], [place], [address], [place] [facility] 6 14:41:20 Cramp in lower limb 363645518 Active Renetta Ford MD Attn: Accountin g,[address] [facility], [place], [address], [place] [facility] 6 14:41:20 Tinea corporis 22781045 Active Renetta Ford MD Attn: True g,[address] [facility], [place], [address], [place] [facility] 6 14:41:20 Lower urinary tract infectious disease 7697920 Active Renetta Ford MD Attn: True g,[address] [facility], [place], [address], [place] [facility] 6 14:41:20 Hypertensive disorder 07383275 Active Gilles hurd, [place] - [facility] 5 16:07:36 Sciatica 55946620 Active Renetta Ford MD Attn: Accountin g,[address] [facility], [place], [address], [place] [facility] 5 11:56:45 Neuropathy 445689346 Active Renetta Ford MD Attn: True g,[address] [facility], [place], [address], [place] [facility] 6 15:11:51 Essential hypertension 93120739 Active Renetta Ford MD Attn: True jones,[address] [facility] [address], [place], [address], [place] - [facility] 6 15:11:51 Obesity 447679701 Active Renetta Ford MD Attn: True jones,[address], [place], [address], [place] [facility] 6 15:11:51 M ni re's disease 18963676 Active eRnetta Ford MD Attn: True jones,[address], [place], [address], [place] - [facility] 5 17:12:10 Problem Notes None recorded. Procedures Surgical History Date Name Laterality Status Provider Name and Address Organization Details Recorded Time 11/08/18 85 Cholecystectomy completed Gilles Palacios [facility] 11/15/19 15 16:07:37 11/08/18 79 Dilation and Curettage completed Gilles Palacios [facility] 11/15/2014 16:07:37 11/08/18 78 Tonsillectomy completed Gilles Palacios [facility] 11/15/2014 16:07:37 Imaging Results None recorded. Procedure Notes None recorded. Medical Equipment None Reported. Allergies Allergen ID Allergen Name Allergen Category Reaction Reaction Severity Criticality Documentation Date Start Date Code Code System Note Provider Name and Address Organization Details Recorded Time 142432 cefdinir medicatio n Not available Not available Not available 10/21/2018 45293 Rx[facility] AZEEM Sim[place], [place] - [facility] 8 11:17:32 11217 codeine medicatio n hives Not available Not available 11/15/2014 2670 RxNorm Gilles hurd [place] - [facility] 5 16:07:37 Medications Name Sig Start Date Stop Date Status Note LastModified by Organization Details LastModified Time gabapentin cap 300mggabape ntin 06/23 completed Not Available Not Available Not Available nystatin oin 769153pupew tin 12/24 completed Not Available Not Available Not Available cyclobenzap rine hcl 10 mg tabs 06/23 completed Not Available Not Available Not Available lisinopril 20 mg tabs 06/23 completed Not Available Not Available Not Available ventolin hfa 108 (90 base) mcg/actaers 06/23 completed Not Available Not Available Not Available gabapentin 300 mg caps 06/23 completed Not Available Not Available Not Available travel sick chw 25mgtravel sickness 06/23 completed Not Available Not Available Not Available amoxicillin tab 875mgamoxic illin 02/10 completed Not Available Not Available Not Available travel sickness 25 mg chew 06/23 completed Not Available Not Available Not Available metronidazo l tab 500mgmetron idazole 06/23 completed Not Available Not Available Not Available azithromyci n 250 mg tabs 02/10 completed Not Available Not Available Not Available ventolin hfa aerventolin hfa 06/23 completed Not Available Not Available Not Available lisinopril tab 20mglisinop ril 06/23 completed Not Available Not Available Not Available cyclobenzap rine 10 mg tablet Take 1 tablet as needed by oral route at bedtime for 30 days. 04/22 completed Not Available Not Available Not Available amoxicillin 500 mg capsule 08/17 completed Not Available Not Available Not Available atorvastati n 40 mg tablet active Not Available Not Available Not Available Qvar 80 mcg/actuati on Metered Aerosol oral inhaler Inhale 2 puffs twice a day by inhalatio n route for 30 days. 04/22 completed Not Available Not Available Not Available BD Alcohol Swabs USE DAILY WITH INSULIN INJECTION S active Not Available Not Available No t Available gabapentin 600 mg tablet Take 1 tablet 3 times a day by oral route for 30 days. 06/23 completed Not Available Not Available Not Available cefuroxime axetil 250 mg tablet active Not Available Not Available No t Available albuterol sulfate 2.5 mg/3 mL (0.083 %) solution for nebulizatio n Inhale 3 mL as needed by nebulizat ion route as directed for 1 day. 2017 active Not Available Not Available Not Avai lable atorvastati n 10 mg tablet Take 1 tablet every day by oral route at dinner for 30 days. active Not Available Not Available No t Available nystatin 100,000 unit/gram topical ointment apply topically daily to rash 12/24 completed Not Available Not Available Not Available benzonatate 200 mg capsule active Not Available Not Available Not Available meloxicam 15 mg tablet active Not Available Not Available Not Available lisinopril 20 mg tablet Take 1 tablet(s) every day by oral route for 30 days. 10/21 completed Not Available Not Available Not Available prednisone 20 mg tablet Take 2 tablets every day by oral route. active Not Available Not Available No t Available Zithromax Z-Meet 250 mg tablet TAKE 2 TABLETS (500 MG) BY ORAL ROUTE ONCE DAILY FOR 1 DAY THEN 1 TABLET (250 MG) BY ORAL ROUTE ONCE DAILY FOR 4 DAYS 11/10 completed Not Available Not Available Not Available Accu-Chek Softclix Lancets 06/16 completed Not Available Not Available Not Available penicillin V potassium 500 mg tablet 02/10 completed Not Available Not Available Not Available topiramate 25 mg tablet active Not Available Not Available Not Available amlodipine 5 mg tablet TAKE ONE TABLET DAILY active Not Available Not Available No t Available ciprofloxac in 500 mg tablet 01/21 completed Not Available Not Available Not Available sulfamethox azole 800 mg-trimetho prim 160 mg tablet Take 1 tablet every 12 hours by oral route after meals for 5 days. active Not Available Not Available No t Available omeprazole 40 mg capsule,del ayed release active Not Available Not Available Not Available aspirin 81 mg tablet,all yed release active Not Available Not Available Not Available tramadol 50 mg tablet active Not Available Not Available No t Available amoxicillin 500 mg tablet Take 1 tablet every 12 hours by oral route after meals for 7 days. 02/10 completed Not Available Not Available Not Available nystatin-tr iamcinolone 100,000 unit/gram-0 .1 % topical ointment active Not Available Not Available Not Available Zofran 4 mg tablet Take 1 tablet 3 times a day by oral route as needed for 3 days. 2017 active Not Available Not Available Not Avai lable amoxicillin 875 mg tablet active Not Available Not Available Not Available famotidine 20 mg tablet Take 1 tablet twice a day by oral route as directed for 15 days. active Not Available Not Available No t Available amitriptyli ne 25 mg tablet Take 1 tablet as needed by oral route at bedtime for 30 days. 06/23 completed Not Available Not Available Not Available dicyclomine 20 mg tablet active Not Available Not Available Not Available OneTouch Ultra Test strips Take 1 strip as needed by miscell. route as needed for 30 days. active Not Available Not Available No t Available Flagyl 500 mg tablet Take 1 tablet every 8 hours by oral route after meals for 10 days. 04/22 completed Not Available Not Available Not Available meclizine 25 mg tablet Take 1 tablet 3 times a day by oral route for 30 days. 04/22 completed Not Available Not Available Not Available baclofen 10 mg tablet Take 1 tablet twice a day by oral route after meals for 30 days. 2017 active Not Available Not Available Not Avai lable doxycycline monohydrate 100 mg capsule active Not Available Not Available Not Available cephalexin 500 mg capsule 02/10 completed Not Available Not Available Not Available methylpredn isolone acetate 40 mg/mL suspension for injection Take 0.5 mL as needed by injection route as directed for 1 day. 11/10 completed Not Available Not Available Not Available promethazin e 25 mg tablet 06/23 completed Not Available Not Available Not Available nitroglycer in 0.4 mg sublingual tablet active Not Available Not Available Not Available gabapentin 300 mg capsule Take 1 capsule 3 times a day by oral route for 30 days. 06/23 completed Not Available Not Available Not Available Banophen 25 mg capsule Take 1 capsule every 6 hours by oral route. active Not Available Not Available No t Available cefuroxime axetil 500 mg tablet 06/23 completed Not Available Not Available Not Available levofloxaci n 500 mg tablet active Not Available Not Available Not Available methylpredn isolone 4 mg tablets in a dose pack active Not Available Not Available Not Available albuterol sulfate HFA 90 mcg/actuati on aerosol inhaler Inhale 2 puffs every 4 hours by inhalatio n route for 30 days. active Not Available Not Available No t Available ketoconazol e 2 % topical cream active Not Available Not Available Not Available lisinopril 40 mg tablet TAKE ONE TABLET DAILY active Not Available Not Available No t Available ondansetron 4 mg disintegrat ing tablet active Not Available Not Available N ot Available cefdinir 300 mg capsule 10/21 completed Not Available Not Available Not Available fluticasone propionate 50 mcg/actuati on nasal spray,suspe nsion 06/23 completed Not Available Not Available Not Available metformin ER 500 mg tablet,exte nded release 24 hr TAKE ONE TABLET DAILY active Not Available Not Available No t Available diazepam 5 mg tablet 06/23 completed Not Available Not Available Not Available metoclopram javed 10 mg tablet Take 1 tablet twice a day by oral route for 10 days. 10/21 completed Not Available Not Available Not Available amoxicillin 875 mg-potassiu m clavulanate 125 mg tablet Take 1 tablet every 12 hours by oral route after meals for 7 days. active Not Available Not Available No t Available amoxicillin 500 mg-potassiu m clavulanate 125 mg tablet Take 1 tablet every 12 hours by oral route after meals for 7 days. active Not Available Not Available No t Available cholestyram ine (with sugar) 4 gram oral powder Take 1 scoop twice a day by oral route as needed for 30 days. 06/23 completed Not Available Not Available Not Available nitrofurant oin monohydrate /macrocryst als 100 mg capsule 06/23 completed Not Available Not Available Not Available duloxetine 60 mg capsule,del ayed release Take 1 capsule every day by oral route as directed for 30 days. active Not Available Not Available No t Available OneTouch UltraMini kit active Not Available Not Available Not Available Oysco 500/D 500 mg-5 mcg (200 unit) tablet active Not Available Not Available Not Available calcium 600 mg (as carbonate)- vitamin D3 10 mcg (400 unit) tablet TAKE 2 TABLETS EVERY DAY active Not Available Not Available No t Available Calcium 600 with Vitamin D3 600 mg-10 mcg (400 unit) chewable tablet Take 2 tablet(s) every day by oral route for 30 days. 2017 active Not Available Not Available Not Avai lable Travel Sickness (meclizine) 25 mg chewable tablet 06/23 completed Not Available Not Available Not Available GaviLyte-N 420 gram oral solution 06/23 completed Not Available Not Available Not Available OneTouch Delica Lancets 33 gauge USE FOR BLOOD SUGAR TESTING active Not Available Not Available No t Available Accu-Chek Nae Plus Meter 06/16 completed Not Available Not Available Not Available selenium sulfide 2.5 % lotion 01/21 completed Not Available Not Available Not Available OneTouch Ultra Blue Test Strip TEST ONCE A DAY active Not Available Not Available No t Available Vitals Date Recorded Body height Body mass index (BMI) Body weight Body temperature Oxygen saturation Oxygen saturation in Arterial blood by Pulse oximetry Heart rate Systolic blood pressure Diastolic blood pressure Provider Name and Address Organization Details Last Updated DateTime 9 157.48 cm 37.8 kg/m2 04382.9 g 97.4 [degF] 95 % 95 % 92 /min 130 mm[Hg] 82 mm[Hg] Ruddy Seals [place] [facility] 9 16:05:46 Date Recorded Body height Body mass index (BMI) Body weight Body temperature Oxygen saturation Oxygen saturation in Arterial blood by Pulse oximetry Heart rate Systolic blood pressure Diastolic blood pressure Provider Name and Address Organization Details Last Updated DateTime 9 157.48 cm 39.1 kg/m2 60141.0 5 g 97.9 [degF] 96 % 96 % 118 /min 130 mm[Hg] 84 mm[Hg] Ruddy Seals [place] [facility] 9 18:06:55 Date Recorded Body height Body mass index (BMI) Body weight Body temperature Oxygen saturation Oxygen saturation in Arterial blood by Pulse oximetry Heart rate Systolic blood pressure Diastolic blood pressure Provider Name and Address Organization Details Last Updated DateTime 9 157.48 cm 38.2 kg/m2 30371.8 1 g 98 [degF] 97 % 97 % 97 /min 160 mm[Hg] 98 mm[Hg] Ruddy Seals [place] - [facility] 9 13:16:36 Date Recorded Body height Body mass index (BMI) Body weight Body temperature Oxygen saturation Oxygen saturation in Arterial blood by Pulse oximetry Heart rate Systolic blood pressure Diastolic blood pressure Provider Name and Address Organization Details Last Updated DateTime 8 157.48 cm 38.9 kg/m2 93866.4 6 g 98.5 [degF] 95 % 95 % 81 /min 134 mm[Hg] 84 mm[Hg] Ruddy Seals [place] [facility] 8 11:22:53 Date Recorded Body height Body mass index (BMI) Body weight Body temperature Oxygen saturation Oxygen saturation in Arterial blood by Pulse oximetry Heart rate Systolic blood pressure Diastolic blood pressure Provider Name and Address Organization Details Last Updated DateTime 8 157.48 cm 38 kg/m2 99510.4 9 g 97.4 [degF] 97 % 97 % 97 /min 136 mm[Hg] 86 mm[Hg] Ruddy Seals [place] [facility] 8 15:29:57 Social History None recorded. Functional Status None recorded. Mental Status None recorded. Family History Relationship Description Onset Age of this Age Resolved Age Notes LastModified by Organization Details LastModified Time Mother Disorder of thyroid gland [email or web address] Not available 2014 16:07:37 Father Heart disease [email or web address] Not available 2014 16:07:37 Father Hypertensive disorder [email or web address] Not available 2014 16:07:37 Father Coronary arterioscler osis [email or web address] Not available 2014 16:07:37 Father Hypercholest erolemia [email or web address] Not available 2014 16:07:37 Sister Hypertensive disorder [email or web address] Not available 2014 16:07:37 Sister Hypercholest erolemia [email or web address] Not available 2014 16:07:37 Brother Hypertensive disorder [email or web address] Not available 2014 16:07:37 Brother Hypercholest erolemia [email or web address] Not available 2014 16:07:37 Medical History Condition Response Coronary Artery Disease N Other N Atrial Fibrillation N High Blood Pressure Y Thyroid Problems N Kidney or Bladder Problems N GI Problems N Depression N COPD N Blood Clots N Skin Problems N Anemia N Heart Attack (DE) N Diabetes N Anxiety Disorder N Muscle, Joint, or Bone Problems N Seizures/Epilepsy N Acid Reflux (GERD) N Cancer N Stroke N Asthma N Allergies N High Cholesterol Y Hepatitis N Liver Disease N Headaches N Osteoporosis N Heart Failure N Gynecological HistoryNo gynecological history recorded. Obstetrics History GPAL:G 0 P 0 0 0 0 Past Encounters Encounter ID Performer Location Encounter Start Date Encounter Closed Date Diagnosis/Indication Diagnosis SNOMED-CT Code Diagnosis ICD10 Code Diagnosis Note [id number] MD Tip [facility] (Adult Med) [address] [place] [id number] 11/15/2014 15:49:53 11/15/2014 17:16:10 Sciatica 95898697 Neuropathy 070827838 Essential hypertension 21153707 Obesity 517422882 M ni re's disease 77998201 [id number] MD Tip Perez (Adult Med) [address] [place] [id number] 04/12/2015 16:07:36 04/12/2015 17:14:51 Acute pharyngitis 354151350 Essential hypertension 49075142 Neuropathy 091460216 Sciatica 57703344 M ni re's disease 73779404 [id number] [facility] [address] [place] [phone] 05/17/2015 15:21:37 05/17/2015 16:17:16 Neck pain 95769286 Essential hypertension 96707459 [id number] Renetta Ford MD [facility] (Adult Med) [address] [place] [id number] 06/13/2015 15:50:41 06/14/2015 13:45:01 Abdominal pain 52515351 Abdominal mass 006259064 [id number] Renetta Ford MD [facility] (Adult Med) [address] [place] [phone] 07/12/2015 16:13:08 07/12/2015 17:16:53 Non-alcoholic fatty liver 079160757 Morbid obesity 332417028 Benign hypertension 85443350 Screening for malignant neoplasm of colon 097931237 Postmenopausal state 87285993 Asthma 786278680 [id number] MD Tip Perez (Adult Med) [address] [place] [id number] 10/17/2015 10:00:41 10/18/2015 17:48:03 Asthma 895383929 J45.909 Benign hypertension 1072 5009 I10 Morbid obesity 236461832 E66.01 Non-alcoho lic fatty liver 834248047 K76.0 Neuropathy 541436796 G62 .9 Obesity 627017155 E66.9 Sciatica 55738270 M54.32 Osteopenia 762638962 M85 .80 Restless legs 41375207 G 25.81 [id number] MD [facility] (Adult Med) [address] [place] [address] [phone] 0 02/13/2016 13:58:29 02/13/2016 17:12:11 Essential hypertension 90816336 I10 Asthma 357927705 J45.90 9 Neuropathy 165483982 G62 .9 Non-alcoho lic fatty liver 531126500 K76.0 Obesity 671015292 E66.9 Osteopenia 148860150 M85 .80 Nausea present 342365357 R11.0 [id number] Renetta Ford MD [facility] (Adult Med) [address] [place] [address] [phone] 0 08/17/2016 12:29:36 08/17/2016 14:57:33 Chronic low back pain 807679388 M54.5 Hiatal hernia 56966865 K 44.9 Acid reflux 946570910 K2 1.9 Cramp in lower limb 4499 19949 R25.2 Tinea corporis 18954992 B35.4 Lower urin dorothy tract infectious disease 9182247 N39.0 [id number] Renetta Ford MD [facility] (Adult Med) [address] [place] [address] [phone] 0 10/27/2016 10:01:29 10/28/2016 16:25:53 Lower urinary tract infectious disease 8815217 N39.0 Screening mammography 24 272276 Z12.31 Screening for malignant neoplasm of cervix 863911576 Z12.4 Lesion of eyelid 3770212 02 H02.89 [id number] Renetta Ford MD [facility] (Adult Med) [address] [place] [address] [phone] 0 11/19/2016 13:54:30 11/19/2016 18:04:27 Nausea present 915324902 R11.0 Hypertensive disorder 38 874873 I10 Essential hypertension 13367353 I10 [id number] Renetta Ford MD [facility] (Adult Med) [address] [place] [address] [phone] 0 01/01/2017 14:48:36 01/01/2017 15:39:24 Lower urinary tract infectious disease 9679684 N39.0 She is on Bactrim antibiotic s. Glycosuria 26398098 R81 Hyperglycemia 53354014 R 73.9 Pain of oulder region 56952734 M25.512 Obesity 379474230 E66.[address] consult and exercise and lose weight. [id number] MD [facility] (Adult Med) [address] [place] [address] [phone] 0 01/18/2017 15:46:48 01/18/2017 17:27:43 Chronic low back pain 918797536 M54.5 Benign hypertension 1072 5009 I10 Morbid obesity 837763836 E66.01 Dietitian consult, encourage her to have regular exercise as she can and to lose weight if possible'. Non-alcoho lic fatty liver 779358886 K76.0 Low salt .low saturated fat and diabetic diet program. Hypertensive disorder 38 441534 I10 Type 2 lizbeth betes mellitus 18774582 E11.9 [id number] MD [facility] (Adult Med) [address] [place] [address] [phone] 0 02/10/2017 15:06:15 02/11/2017 10:26:51 Diabetes mellitus 87137666 E11.9 To continue medication ,diabetic diet, exercise and lose weight. Chronic diarrhea 1751121 09 K52.9 She has been evaluated by GI architecture consultant recently. [id number] MD [facility] (Adult Med) [address] [place] [address] [phone] 0 03/29/2017 16:20:46 03/29/2017 17:45:01 Contusion of lower limb 01549686 S80.10XA Left foot for about 2 weeks at previous job. Heating /ice, aspirin. Go to ER any time for any concern, she agreed. Contusion of shoulder region 26609541 S40.012A Heating/ ice, aspirin cream. Go to ER any time for any concern. She agreed. [id number] MD [facility] (Adult Med) [address] [place] [address] [phone] 0 04/21/2017 13:39:35 04/23/2017 10:42:06 [id number] MD [facility] (Adult Med) [address] [place] [address] [phone] 06/23/2017 15:58:04 06/24/2017 15:14:19 Acute pharyngitis 516277927 J02.9 [id number] MD [facility] (Adult Med) [address] [place] [address] [phone] 0 12/24/2017 15:02:40 12/24/2017 16:33:53 Clostridium difficile colitis 020973879 A04.71 [id number] Renetta Ford MD [facility] (Adult Med) [address] [place] [address] [phone] 0 01/21/2018 15:04:41 01/21/2018 16:20:42 Diabetes mellitus 65990096 E11.9 To continue medication ,diabetic diet, exercise and lose weight. Hip joint painful on movement 512759903 M25.160 [id number] Renetta Ford MD [facility] (Adult Med) [address] [place] [address] [phone] 0 04/22/2018 15:00:11 04/25/2018 10:20:53 Type 2 diabetes mellitus 36911377 E11.9 Diabetic diet, exercise, has enough metformin 500 mg once /day. Home blood sugar 105 mg% today 04-22-2018 . Essential hypertension 75038343 I10 Low salt , Has enough llisinopri l 40 mg/day,and amlodipine 5 mg/day. [id number] Renetta Ford MD [facility] (Adult Med) [address] [place] [address] [phone] 0 06/01/2018 12:18:14 06/02/2018 10:26:21 Acute pharyngitis 403154944 J02.9 Type 2 lizbeth betes mellitus 93305186 E11.9 Diabetic diet, exercise, has enough metformin 500 mg once /day. Home blood sugar 105 mg% today 04-22-2018 . Her blood sugar is 95 mg%. HgA1c is 5.7% today 06-01-2018 . Patient informed. [id number] Renetta Ford MD [facility] (Adult Med) [address] [place] [address] [phone] 08/09/2018 12:06:51 08/10/2018 13:38:58 Acute urinary tract infection 497303721 N39.0 [id number] Renetta Ford MD [facility] (Adult Med) [address] [place] [address] [phone] 10/21/2018 10:52:11 10/24/2018 11:38:18 Diabetes mellitus 70190223 E11.9 To continue medication ,diabetic diet, exercise and lose weight. Urinary tr act infectious disease 81529360 N39.0 Discussed with patient , she agreed to repeat urine culture. Type 2 lizbeth betmami mellitus 89102564 E11.9 Diabetic diet, exercise, has enough metformin 500 mg once /day. Home blood sugar 105 mg% today 04-22-2018 . Her blood sugar is 95 mg%. HgA1c is 5.7% today 06-01-2018 . Patient informed.H gA1c is 6.1% 10-21-2018 patient informed today. [id number] Renetta Ford MD [facility] (Adult Med) [address] [place] [address] [phone] 0 10/28/2018 14:37:26 11/03/2018 10:47:33 Asthmatic bronchitis 562753373 J45.909 Discussed with patient, advised to go to ER any time for any concern, she understood and agreed. Her breath sound feels better after nebulizer treatment at this office. 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 [id number] Renetta Ford MD [facility] (Adult Med) [address] [place] [address] [phone] 0 11/10/2018 15:38:25 11/10/2018 16:35:40 Asthmatic bronchitis 714864971 J45.909 Discussed with patient, advised to go to ER any time for any concern, she understood and agreed. Her breath sound feels better after nebulizer treatment at this office. Type 2 lizbeth betmami mellitus 98548831 E11.9 Diabetic diet, exercise, has enough metformin 500 mg once /day. Home blood sugar 105 mg% today 04-22-2018 . Her blood sugar is 95 mg%. HgA1c is 5.7% today 06-01-2018 . Patient informed.H gA1c is 6.1% 10-21-2018 patient informed today. Depressive disorder 3548 9007 F32.89 [id number] Renetta Ford MD [facility] (Adult Med) [address] [place] [address] [phone] 0 11/29/2018 17:12:40 11/30/2018 15:48:34 Pruritic rash 56099314 L28.2 Resolving, on prednisolo ne and benadryl. [id number] Renetta Ford MD [facility] (Adult [facility]) [address] [place] [address] [phone] 02/14/2019 13:03:13 02/15/2019 09:45:21 Acute pharyngitis 927191605 J02.9 Avoid close contact, Orsharing food or drinking or kissing. She agreed. Acute bronchitis 8824738 2 J20.9 Screening mammography 24 888752 Z12.31 Blurring o f visual image 923896000 H53.8 Health Concerns Section Related Observation LastModified by Organization Detai ls LastModified Time None Recorded Concern Status LastModified by Organization Details LastModified Time None Recorded Advance Directives Directive None Recorded Payers Encounter Date Sequence Insurance Name Policy Number Policy Mcintosh Covered Member ID Mcintosh Member ID Guarantor Name 10/21/2018 1 COUNT INCLUDES THE [facility] (MEDICAID HMO) Zaira Cason [id number] Zaira Cason 10/28/2018 1 COUNT INCLUDES THE [facility] (MEDICAID HMO) Zaira Cason [id number] Zaira Cason 11/10/2018 1 [facility] PRIOR TO 05/08/2021 (MEDICAID REPLACEMENT - HMO) Zaira Cason [id number] Zaira Cason 11/29/2018 1 [facility] PRIOR TO 05/08/2021 (MEDICAID REPLACEMENT - HMO) Zaira Cason [id number] Zaira Cason 02/14/2019 1 [facility] PRIOR TO 05/08/2021 (MEDICAID REPLACEMENT - HMO) Zaira Cason [id number] Zaira Cason Notes Date Note Type Note Provider Name and Address Organization Details Recorded Time 10/21/2018 text/html Recently from hospital for uti, on cefdinir which made her sick , she did not finish it, still not feeling good, but no fever, minimal left lower back discomfort, irritation of urination. By the way she has had blurred vision on and off foe the past few days. Allergic to codeine. Blood sugar is 121 mg% today. HgA1c is 6.1%, she is informed nd discussed. By the way she was told to have endometrial cancer and has been referred to [facility] and hysterectomy was recommended. Renetta Ford MD Attn: [address] [place], [address], [facility] 10/21/2018 12:19:15 10/28/2018 text/html Chest congestion and sore throat, went to urgent care , got cough pill, steroid and albuterol inhaler, allergic to cefdinir and codeine., not a smoker. Renetta Ford MD Attn: [address] [place], [address], [facility] 10/28/2018 15:55:56 11/10/2018 text/html Chest congestion has improved, no fever, finished with antibiotics, breathing is better, still uses inhaler as needed. but still felt front chest sore and weakness of legs, allergic to cefdinir and codeine. No appetizer. Renetta Ford MD Attn: [address] [place], [address], [facility] 11/10/2018 16:33:39 11/29/2018 text/html Insect bits at home, skin rashes and itching and went to ER , ! ? insect bite or allergy. took Z-meet before nothing happened.. Renetta Ford MD Attn: [address] [place], [address], [facility] 11/29/2018 18:15:36 02/14/2019 text/html 1. Chest congestion, been in ER and treated for influenza A and UTI, 2. Sore throat recently . 3. Blurred vision recently. Allergic to cefdinir and codeine, took amoxicillin before and no any reaction. Also is type 2 DM, blood sugar 129 mg% at g home today. Renetta Ford MD Attn: [address]ing[address] [place], [address], [facility] 02/14/2019 13:36:02 OBGyn Episode No OBEpisode recorded.
--- OUTSIDE RECORDS SUMMARY | 2025-04-09 17:50 | XMS_ITS | Clinical Summary ---
Author Organization [facility] [employer] Address [address] [place] [address] Care Team Providers Care Electrical Engineering Technologist Name Role Phone [facility] Felicia Yi APRN-MATHEMATICAL ENGINEERING TECHNICIAN Primary Care Provider [phone] Source Comments [facility],non-owned Affiliates and Associated Physician Practices is amultiple site organization consisting of ambulatory clinics and hospital sitesin [place], [place], [place] and [place]. This disclosure is being madepursuant to the Care Everywhere program and may not contain all information available regarding this patient. Last updated 18.[facility] [employer] Allergies Active Allergy Reactions Criticality Noted Date Comments Codeine Rash,Vomiting Medium 12/27/2016 Nitrofurantoin Nausea and/or Vomiting 7 Sulfamethoxazole Unknown 03/28/2024 Sulfamethoxazole W-Trimethoprim Urticaria Medium 06/19/2020 Medications * Be aware that medications may not be up to date on this document. Alwaysverify current medications with the patient. Cholecalcifero l 25 MCG (1000 UT) Take 1 (one) tablet by mouth 3 times daily Active calcium carbonate-park min D 600-400 MG-UNIT tablet Take 1 (one) tablet by mouth 2 times daily Active apixaban (Eliquis) 5 MG tablet Take 1 (one) tablet by mouth 2 times daily 4 Active gabapentin (Neurontin) 250 MG/5ML oral solution Take 2 mL by mouth 3 times daily 4 Active atorvastatin (Lipitor) 40 MG tablet Take 1 (one) tablet by mouth at bedtime 4 Active polyethylene glycol 3350 (Miralax) 17 g packet Take 17 (seventeen) g by mouth once daily 4 Active melatonin 3 MG tablet Take 1 (one) tablet by mouth at bedtime 4 Active albuterol HFA (Proventil; Ventolin; Proair) 108 (90 Base) MCG/ACT inhaler Inhale 2 (two) puffs by mouth every 4 hours as needed 4 Active acetaminophen (Tylenol) 325 MG tablet Take 2 (two) tablets by mouth every 6 hours as needed Maximum allowable Acetaminophen amount = 4 Grams (4000 mg) / 24 hours. 4 Active butalbital-nisa taminophen-caf feine (Fioricet) 50-325-40 MG tablet Take 1 (one) tablet by mouth every 4 hours as needed for Headache 4 Active hydrOXYzine HCl (Atarax) 50 MG tablet Take 1 (one) tablet by mouth 3 times daily as needed 4 Active sertraline (Zoloft) 100 MG tablet Take 1 (one) tablet by mouth once daily 4 Active loperamide (Imodium) 2 MG capsule Take 1 (one) capsule by mouth 4 times daily as needed for Diarrhea 4 Active ondansetron, disintegrating , (Zofran ODT) 4 MG tablet Take 1 (one) tablet by mouth every 4 hours as needed for Nausea/Vomiting Allow tablet to dissolve on the tongue 4 Active prochlorperazi ne (Compazine) 5 MG tablet Take 1 (one) tablet by mouth every 6 hours as needed for Nausea/Vomiting 4 Active metoprolol succinate XL 24hr (Toprol XL) 50 MG tablet Take 1 (one) tablet by mouth 2 times daily 4 Active amLODIPine (Norvasc) 10 MG tablet Take 1 (one) tablet by mouth once daily 4 Active nystatin (Mycostatin) 095690 UNIT/GM powder Apply to affected area 3 times daily 4 Active methocarbamol (Robaxin) 500 MG tablet Take 1 (one) tablet by mouth every 8 hours as needed for Muscle Spasms 4 Active pantoprazole EC (Protonix) 40 MG tablet Take 1 (one) tablet by mouth once daily 4 Active traMADol (Ultram) 50 MG tablet Take 1 (one) tablet by mouth every 6 hours as needed 12 tablet 4 Active senna (Senokot Extra Strength) 17.2 MG Take 17.2 mg by mouth once daily 4 Active Active Problems Problem Noted Date Diagnosed Date CVA, old, hemiparesis 10/03/2024 Acute intractable tension-type headache 10/03/20 24 Acute respiratory failure with hypoxia 4 Cerebral herniation 12/30/2023 Brain compression 12/30/2023 Nihss score 26 12/30/2023 Vaginal bleeding, abnormal 11/24/2023 GERD (gastroesophageal reflux disease) 4 Type 2 diabetes mellitus 11/24/2023 Acute post-hemorrhagic anemia 11/24/2023 Primary hypertension 11/24/2023 Cerebrovascular accident (CV A) due to embolism of right middle cerebral artery 11/23/2023 H/O ischemic right MCA stroke Atrial fibrillation Left-sided weakness Immunizations Immunization Administration Dates Next Due FLU VACCINE TRI IIV3 SPLIT IM (FLUVIRIN) 014 INFLUENZA VACCINE, QUADR. (F LUZONE; FLULAVAL; FLUARIX; AFLURIA QUADRIVALENT; 6MO+), 0.5 ML (IIV4) 11/29/2019 Pneumococcal Pcv13 Conj 05/09/2019 TDAP, HISTORIC VACCINE 05/09/2019 Family History Medical History Relation Name Comments CAD (Coronary Artery Disease) Brother CAD (Coronary Artery Disease) Father Cancer - Other Father None Known Maternal Aunt None Known Maternal Grandfather None Known Maternal Grandmother None Known Maternal Uncle None Known Mother None Known Other None Known Paternal Aunt None Known Paternal Grandfather None Known Paternal Grandmother None Known Paternal Uncle None Known Sister Asthma Neg Hx CVA Neg Hx Cancer - Breast Neg Hx Cancer - Skin, Melanoma Neg Hx Cancer - Skin, Non Melanoma Neg Hx Eczema Neg Hx Hemophilia Neg Hx Psoriasis Neg Hx Relation Name Status Comments Brother Father Maternal Aunt Maternal Grandfather Maternal Grandmother Maternal Uncle Mother Other Paternal Aunt Paternal Grandfather Paternal Grandmother Paternal Uncle Sister Social History Tobacco Use Types Packs/Day Years Used Date Smoking Tobacco: Never Smokeless Tobacco: Never Tobacco Cessation:Counseling Given: No Alcohol Use Standard Drinks/Week Comments No 0 (1 standard drink = 0.6 oz pur e alcohol) AUDIT-C Answer Date Recorded Q1: How often do you have a drink containing alcohol? Never 10/04/2024 Q2: How many drinks containi ng alcohol do you have on a typical day when you are drinking? Patient does not drink Q3: How often do you have si x or more drinks on one occasion? Never 10/04/2024 Overall Financial Resource Strain (CARDIA) Answe r Date Recorded How hard is it for you to pa y for the very basics like food, housing, medical care, and heating? Not hard at all 10/04/2024 PHQ-2 Answer Date Recorded Patient Health Questionnaire-2 Score 2 12/16/2023 [facility] - Occupational Stress Questionnaire Answer Date Recorded Do you feel stress - tense, restless, nervous, or anxious, or unable to sleep at night because your mind is troubled all the time - these days? Only a little 10/04/2024 Hunger Vital Sign Answer Date Recorded Within the past 12 months, y ou worried that your food would run out before you got the money to buy more. Never true 10/04/20 24 Within the past 12 months, t he food you bought just didn't last and you didn't have money to get more. Never true 10/04/2024 PRAPARE - Transportation Answer Date Re corded In the past 12 months, has l ack of transportation kept you from medical appointments or from getting medications? No 09/09 In the past 12 months, has l ack of transportation kept you from meetings, work, or from getting things needed for daily living? No 10/04/2024 Housing Stability Vital Sign Answer Silvestre e Recorded In the last 12 months, was t here a time when you were not able to pay the mortgage or rent on time? No 10/04/2024 In the past 12 months, how m any times have you moved where you were living? 1 10/04/2024 At any time in the past 12 m [facility], were you homeless or living in a detention (including now)? No 10/04/2024 Comments No Sex and Gender Information Value Date Recorded Sex Assigned at Not on file Legal Sex Female 5:00 PM CDT Gender Identity Not on file Sexual Orientation Not on file Last Filed Vital Signs Vital Sign Reading Time Taken Comments Blood Pressure 117/71 10/23/2024 11:38 AM [employer] [employer] Pulse 62 10/23/2024 11:38 AM [employer] [employer] Temperature 36.4 C (97.5 F) 10/23/2024 11:38 AM [employer] [employer] Respiratory Rate 16 10/23/2024 11:3 8 AM [employer] [employer] Oxygen Saturation 100% 10/23/2024 11: 38 AM [employer] [employer] Inhaled Oxygen Concentration 35% 12/09/2023 8 :27 AM [employer] [employer] Weight 72.5 kg (159 lb 12.8 oz) 10/23/2024 4:00 AM [employer] Height 167.6 cm (5' 5.98) 10/04/2024 8:26 PM CS T Body Mass Index 25.8 10/04/2024 8:26 PM [employer] Plan of Treatment Health Maintenance Due Date Last Done Comments COLOGUARD (AGES 45-75) - COLON CA SCREENING 1958 COLON MONITORING 1958 COLONOSCOPY - COLON CA SCREENING 1958 CT COLONOGRAPHY - COLON CA SCREENING 1960 Colorectal Cancer Screening 1958 FIT - COLON CA SCREENING 1958 FLEX SIG - COLON CA SCREENING 1958 HEPATITIS C SCREENING 08/27/1976 ZOSTER VACCINE (1 of 2) 2008 Respiratory Syncytial Virus (RSV) Vaccine Pt: or over 60 yrs (1 - Risk 60-74 years 1-dose series) 2018 PNEUMOCOCCAL VACCINE 50+ (2 of 2 - PPSV23) 07/04/2019 05/09/2019 DIABETES RETINOPATHY SCREENING 11/24/2023 DIABETES-FOOT EXAM WITH MONOFILAMENT 11/24/2023 MAMMOGRAM 12/25/2023 12/25/2021, 0205/2022, 09/05/2020, Additional history exists COVID-19 VACCINE ( - season) 2024 DIABETES-HGB A1C 09/29/2024 03/29/2024, , 12/28/2022, Additional history exists DEPRESSION SCREENING 11/08/2024 11/23/2023 DIABETES - URINE PROTEIN SCREENING 11/08/2024 MEDICARE AWV CALENDAR YEAR 2024 INFLUENZA VACCINE (Season Ended) 2025 11/29/2019, 08/27/2014 DIABETES-SERUM CREATININE 10/15/20252023, 10/07/2024, 10/04/2024, Additional history exists DTAP/TDAP/TD VACCINES (2 - Td or Tdap) 05/09/2029 05/09/2019 BONE DENSITY TESTING Completed 02/07/2021 HEPATITIS B VACCINE Aged Out No longe r eligible based on patient's age to complete this topic HIB VACCINE Aged Out No longer eligi ble based on patient's age to complete this topic HPV VACCINE Aged Out No longer eligi ble based on patient's age to complete this topic MENINGOCOCCAL (Group B) VACCINE SHARED DECISION-MAKING Aged Out No longer eligible based on patient's age to complete this topic MENINGOCOCCAL GROUPS A/C/Y/W VACCINE Aged Out No longer eligible based on patient's age to complete this topic Medical Devices Implanted Type Area Agent Contract Clerk Device Identifier Shelf Expiration Date Model / Serial / Lot DepCoppertino Synthes [employer] Ref# [id number] Implanted:Qty: 1 on 11/28/2023 by Dafne Hernandez MD at [facility] Right: Cranial 11/07/2025 [id number] / N/A / [id number] Procedures Procedure Name Priority Date/Time Associated Diagnosis Comments COMPREHENSIVE METABOLIC PANEL Routine 10/15/2024 8:43 PM [employer] [employer] HEMOGLOBIN A1C Add on 11/24/2023 12:20 AM [employer] from Last 3 Months or Most Recently Relevant to Health Maintenance Results * (ABNORMAL) COMPREHENSIVE METABOLIC PANEL (10/15/2024 8:43 PM [employer] [employer]) BUN 17 7 - 26 mg/dL 10/15/2024 9:38 PM [facility] [employer] Creatinine 0.57 0.56 - 0.96 mg/dL 10/15/2024 9:38 PM [facility]GER [employer]ION [facility] Sodium 143 136 - 145 mmol/L 10/15/2024 9:38 PM [facility] [employer] [facility] Potassium 3.6 3.5 - 4.5 mmol/L 10/15/2024 9:38 PM [facility] Chloride 111(H) 98 - 107 mmol/L 10/15/2024 9:38 PM [facility] CO2 24 22 - 29 mmol/L 10/15/2024 9:38 PM [facility] Glucose 160(H) 70 - 99 mg/dL 10/15/2024 9:38 PM [facility] Calcium 9.0 8.4 - 10.2 mg/dL 10/15/2024 9:38 PM [facility] Protein Total 6.1 6.0 - 8.3 g/dL 10/15/2024 9:38 PM [facility] Albumin 3.1(L) 3.4 - 5.0 g/dL 10/15/2024 9:38 PM [facility] Bilirubin Total 0.2 0.2 - 1.2 mg/dL 10/15/2024 9:38 PM [facility] Alkaline Phosphatase 123 40 - 150 U/L 10/15/2024 9:38 PM [facility] ALT 56(H) 5 - 55 U/L 10/15/2024 9:38 PM [facility] AST 43(H) 5 - 34 U/L 10/15/2024 9:38 PM [facility] Anion Gap 8 6 - 16 10/15/2024 9:38 PM [facility] BUN/Creatinine Ratio 30(H) 7 - 23 10/15/2024 9:38 PM [facility] Osmolality Calculated 301(H) 275 - 295 mOsm/kg 10/15/2024 9:38 PM [facility] Albumin/Globulin Ratio 1.0(L) 1.1 - 2.3 10/15/2024 9:38 PM [facility] eGFR by CKD-EPI >90 >=90 mL/min/1.7 3 m2 10/15/2024 9:38 PM [facility] Blood BLOOD SPECIMEN / Unknown Lab Venipuncture / Unknown 10/15/2024 8:43 PM [employer] 10/15/2024 9:10 PM [employer] us Radha Bhat DO LAB - CHEMISTRY ORDERABLES Fin al Result [facility] [address] [place] [address], [facility] [phone] * HEMOGLOBIN A1C (11/24/2023 12:20 AM [facility]) Hemoglobin A1c 4.9 <=5.6 % 11/24/2023 10:00 AM [facility] Estimated Average Glucose 94 mg/dL 11/24/2023 10:00 AM [facility] Comment: HbA1c Interpretation: Normal : < 5.7% Pre-diabetes: 5.7-6.4% Diabetes: Equal to or greater than 6.5% Test results diagnostic of diabetes should be repeated for confirmation. Treatment target values recommended by ADA and other clinical organizations should be used to evaluate metabolic control in patients. Reference: [place] [employer], Standards of Care in Diabetes -2020 In patients 70 years and older consider HbA1c target range of 7.0-7.5% (Reference: Chencho Perez et al. JAMDA. 2012) The Sebia assay for the measurement of HbA1c is a National Glycohemoglobin Standardization Program (NGSP) certified method. Blood BLOOD SPECIMEN / Unknown Venipuncture / Unknown 11/24/2023 12:20 AM [employer] [employer] 11/24/2023 12:31 AM [facility] Russell Alvarado MD LAB - CHEMISTRY ORDERABLES Fi nal Result Performing Organization Address [facility] Co de Phone Number [facility] [address] [place] [address], [facility] [phone] from Last 3 Months or Most Recently Relevant to Health Maintenance Insurance [facility] MANAGED MEDICARE ADV Advance Directives Documents on File Type Date Recorded Patient Chairman & Co Founder Expl anation Adv Directive/Living Will/POA 10/30/2024 11:47 AM Adv Directive/Living Will/POA 10/11/2024 10:41 AM * Full Code (Latest Code Status on File) Date Activated Date Inactivated Comments 10/03/2024 8:01 PM 10/23/2024 5:59 PM * Full Code Date Activated Date Inactivated Comments 11/23/2023 8:24 PM 12/19/2023 2:28 PM Care Teams Electrical Engineering Technologist Relationship Specialty Start Date End Date Felicia Kuo APRN-CNP [address] [place] [id number] PCP - General 06/17/21 [address], [place] [address] 12/02/17
--- OUTSIDE RECORDS SUMMARY | 2025-04-09 17:50 | XMS_ITS | Clinical Summary ---
Author Organization [facility] Address [address] [place] [address] Phone Care Team Providers Care Wheel Press Operator Name Role Phone Felicia Kuo NP Primary Care Provider + [phone] Allergies Active Allergy Reactions Criticality Noted Date Comments Ascorbic Acid Unknown 08/07/2021 Aspirin Hives Medium 01/05/2020 Hives Cefdinir Other (See comments),Unknown Low 02/04/2021 Codeine Hives,Stomach upset,Other (See comments),Rash,Vomiting Medium 01/12/2016 Hives Nitrofurantoin Nausea And Vomiting,Vomiting Low 12/29/2016 [place] Hives Medium 06/19/2020 Sulfamethoxazole Unknown 03/28/2024 Sulfamethoxazole-Trimethoprim Hives,Urticaria Medium 0 06/19/2020 Medications hydrOXYzine (ATARAX) 25 mg tablet Take 1-2 tablets (25-50 mg total) by mouth every 8 (eight) hours as needed for anxiety 60 tablet 1 4 Active aspirin 81 mg enteric coated tabletIndicatio ns:heart health Take 1 tablet (81 mg total) by mouth every morning 30 tablet 4 Active apixaban (ELIQUIS) 5 mg tablet Take 1 tablet (5 mg total) by mouth 2 (two) times a day 60 tablet 4 Active atorvastatin (LIPITOR) 40 mg tablet Take 1 tablet (40 mg total) by mouth nightly 30 tablet 4 Active metoprolol XL (TOPROL-XL) 25 mg extended release tablet Take 1 tablet (25 mg total) by mouth 2 (two) times a day 60 tablet 11 4 04/25/[address] (PROTONIX) 40 mg EC tablet Take 1 tablet (40 mg total) by mouth 2 (two) times a day 60 tablet 4 Active sertraline (ZOLOFT) 50 mg tablet Take 1 tablet (50 mg total) by mouth daily 30 tablet 4 Active traMADoL (ULTRAM) 50 mg tablet Take 1 tablet (50 mg total) by mouth every 8 (eight) hours as needed for pain (Chronic pain syndrome) 21 tablet 4 Active acetaminophen (TYLENOL) 325 mg tabletIndicatio ns:Fever,Pain Take 2 tablets (650 mg total) by mouth every 4 (four) hours as needed for pain, headaches or fever 30 tablet 1 4 Active albuterol HFA (PROVENTIL HFA,VENTOLIN HFA,PROAIR HFA) 90 mcg/actuation inhalerIndicati ons:Acute Asthma Attack Inhale 2 puffs every 4 (four) hours as needed for wheezing or shortness of breath 1 each 1 4 Active cholecalciferol (VITAMIN D-3) 1,000 unit capsule 1 capsule (1,000 Units total) 9 Active meclizine (ANTIVERT) 25 mg tablet TAKE 1/2 (ONE HALF) A TABLET BY MOUTH 3 TIMES DAILY NEEDED FOR DIZZINESS Active melatonin tablet Take 1 tablet (3 mg total) by mouth nightly 4 Active apixaban (ELIQUIS) 5 mg tablet Take 1 tablet (5 mg total) by mouth 2 (two) times a day 4 Active hydrOXYzine (ATARAX) 25 mg tablet Take 1-2 tablets (25-50 mg total) by mouth 3 (three) times a day as needed 4 Active Active Problems Problem Noted Date [...] weakness 04/18/2024 Coronary artery disease invo lving [place] coronary artery of [place] heart without angina pectoris 04/05/2024 Abdominal pain [...] insomnia 03/08/2024 Acute respiratory failure with hypoxia Brain compression 12/30/2023 Cerebral herniation 12/30/2023 Nihss score 26 12/30/2023 Acute post-hemorrhagic anemia 11/24/2023 Cerebrovascular accident (CV A) due to embolism of right middle cerebral artery 11/23/2023 Weakness 12/30/2022 Ataxia 12/30/2022 Vitamin B12 deficiency anemia, unspecified 12/29 Overview (07/13/2024): Added automatically from request for surgery [id number] Abnormal vaginal bleeding 05/24/2022 Numbness and tingling 11/13/2021 Abnormal stress test 08/28/2021 Overview (07/13/2024): Last Assessment & Plan: 01/2020- We will proceed with [facility] for eval Chronic atrial fibrillation, unspecified 021 [...] (06/07/2020): Added automatically from request for surgery [id number] JUAN (obstructive sleep apnea) 06/07/2020 Overview (06/07/2020): Added automatically from request for surgery [id number] Poor dentition 06/07/2020 Overview (06/07/2020): Added automatically from request for surgery [id number] Mixed hyperlipidemia 05/09/2019 Overview (07/13/2024): Last Assessment [...] (05/23/2018): Added automatically from request for surgery [id number] Hypertensive disorder 05/18/2018 Overview (07/13/2024): On lisinopril [...] nodule to be artifact on prior image. Encounters Date Type Department Care Team Description 01/09/2025 Telephone [facility] Accountable Care Organization [address] [place] [id number] Iliana Dumont MA from Last 3 Months Surgical History Surgery Date Site/Laterality Comments DILATION AND CURETTAGE OF UTERUS 1978, 1983 For abnormal uterine bleeding CHOLECYSTECTOMY 11/08/1984 - 11/07/1985 TONSILLECTOMY/ADENOIDECTOMY age 16 Medical History Medical History Date Comments Hypertension Diabetes mellitus (HCC) Hypercholesteremia Right-sided Thomas's palsy Benign paroxysmal positional vertigo Type 2 diabetes mellitus (HCC) GERD (gastroesophageal reflux disease) Asthma Family History Medical History Relation Name Comments Cancer Brother Heart disease Brother Hypertension Brother Hypertension Father Hypertension Mother Breast cancer Mother's Sister Hypertension Sister Relation Name Status Comments Brother Father Mother Mother's Sister Sister Social History Tobacco Use Types Packs/Day Years Used Date Smoking Tobacco: Never Smokeless Tobacco: Never Alcohol Use Standard Drinks/Week Comments No 0 (1 standard drink = 0.6 oz pur e alcohol) [facility] Utilities Answer Date Recorded In the past 12 months has e electric, gas, oil, or water [employer] threatened to shut off services in your home? No 04/19/2024 Social Connection and Isolation Panel [NHANES] A nswer Date Recorded In a typical week, how many times do you talk on the phone with family, friends, or neighbors? Three times a week 04/19/2024 How often do you get togethe r with friends or relatives? Three times a week 04/19/2024 How often do you attend chur ch or nondenominational services? Never 04/19/2024 Do you belong to any clubs o r organizations such as jew groups, unions, fraternal or athletic groups, or school groups? No 04/19/2024 How often do you attend meet ings of the clubs or organizations you belong to? Never 04/19/2024 Are you , , di vorced, , never , or living with a partner? 04/19/2024 Overall Financial Resource Strain (CARDIA) Answe r Date Recorded How hard is it for you to pa y for the very basics like food, housing, medical care, and heating? Hard 04/19/2024 Hunger Vital Sign Answer Date Recorded Within the past 12 months, y ou worried that your food would run out before you got the money to buy more. Sometimes true Within the past 12 months, t he food you bought just didn't last and you didn't have money to get more. Sometimes true 10/2024 PRAPARE - Transportation Answer Date Re corded In the past 12 months, has l ack of transportation kept you from medical appointments or from getting medications? Yes 04/08 In the past 12 months, has l ack of transportation kept you from meetings, work, or from getting things needed for daily living? Yes 04/19/2024 Housing Stability Vital Sign Answer Silvestre e Recorded In the last 12 months, was t here a time when you were not able to pay the mortgage or rent on time? No 04/19/2024 In the past 12 months, how m any times have you moved where you were living? 0 04/19/2024 At any time in the past 12 m [facility], were you homeless or living in a fdc (including now)? No 04/19/2024 Personal Safety Answer Date Recorded Have you ever been in or are you currently in a harmful physical or emotional relationship or is someone making you feel afraid or unsafe? Denies 11/02/2024 Comments No Sex and Gender Information Value Date Recorded Sex Assigned at Not on file Legal Sex Female 3:21 AM ORACLE ERP DEVELOPER Gender Identity Female 08/19/2023 9:25 AM CDT Sexual Orientation Not on file Obstetrics History Para Term AB IAB SAB Ectopic Multiple Livin g Live Births 1 1 1 1 1 Date Outcome GA Total Labor Labor/2nd/3rd Weight Sex Type Anes PTL Yarelis A1 A5 Name Clin 1978 Term M Living Last Filed Vital Signs Vital Sign Reading Time Taken Comments Blood Pressure 108/61 11/02/2024 11:45 PM ORACLE ERP DEVELOPER Pulse 69 11/03/2024 5:00 AM ORACLE ERP DEVELOPER Temperature 36.2 C (97.2 F) 11/02/2024 8:49 PM ORACLE ERP DEVELOPER Respiratory Rate 14 11/03/2024 5:00 AM ORACLE ERP DEVELOPER Oxygen Saturation 95% 11/03/2024 5:00 AM ORACLE ERP DEVELOPER Inhaled Oxygen Concentration - - Weight 73.9 kg (163 lb) 11/02/2024 3:41 PM ORACLE ERP DEVELOPER Height 154.9 cm (5' 1) 11/02/2024 3:41 PM ORACLE ERP DEVELOPER Body Mass Index 30.8 11/02/2024 3:41 PM ORACLE ERP DEVELOPER Plan of Treatment Health Maintenance Due Date Last Done Comments Albumin Creatinine Ratio, Urine 1958 Colon Cancer Screening-Colonoscopy 1958 Depression Screening 1958 Dilated Eye Exam 1958 Foot Exam 1958 Hepatitis B Screening 1976 Zoster Vaccine (1 of 2) 2008 Pneumococcal vaccine 65+ (2 of 2 - PPSV23) 07/04/2019 05/09/2019 Breast Cancer Screening-Mammogram 12/25/2022 12/25/2021, 12/25/2021, 09/05/2020, Additional history exists Osteoporosis Screening-Bone Density Scan 02/07/2023 02/07/2021, 07/25/2015 Well Visit 65+ 2023 Hemoglobin A1C 09/29/2024 03/29/2024, 11/08, 09/29/2018, Additional history exists Lipid Panel 03/29/2025 03/29/2024, 11/08, 12/30/2022, Additional history exists Fall Risk Assessment 04/25/2025 04/25/2024 Influenza Vaccine (Season Ended) 2025 11/29/2019, 08/27/2014, 08/27/2014 eGFR 11/03/2025 11/03/2024, 04/08, 04/24/2024, Additional history exists DTaP/Tdap/Td Vaccine (2 - Td or Tdap) 05/09/2029 05/09/2019 Hepatitis C Screening Completed 01/11/2017 Colon Cancer Screening-FIT Discontinued 12/12/2017 Procedures Procedure Name Priority Date/Time Associated Diagnosis Comments EGFR STAT 11/03/2024 1:26 AM ORACLE ERP DEVELOPER HEMOGLOBIN A1C Routine 03/29/2024 7:16 AM CDT LIPID PANEL Routine 03/29/2024 7:16 AM CDT OCCULT BLOOD, FECAL (FIT) Routine 12/12/2017 8:20 AM ORACLE ERP DEVELOPER HEPATITIS PANEL, ACUTE Routine 01/11/2017 5:12 PM ORACLE ERP DEVELOPER from Last 3 Months or Most Recently Relevant to Health Maintenance Results * eGFR (11/03/2024 1:26 AM ORACLE ERP DEVELOPER) eGFR >90 >=60 mL/min/1. 73 m2 Comment: Interpretive Data Reference Interval Normal >/= 90 mL/min/1.73m2 Mildly decreased* 60 - 89 mL/min/1.73m2 Mildly to moderately decreased 45 - 59 mL/min/1.73m2 Moderately to severely decreased 30 - 44 mL/min/1.73m2 Severely decreased 15 - 29 mL/min/1.73m2 Kidney Failure < 15 mL/min/1.73m2 *Relative to young adult level Estimated glomerular filtration rate is determined by the 2020 CKD-EPI equation recommended by the National Kidney Foundation (A Unifying Approach to GFR Estimation: Recommendations of the NKF-ASK Task Force on Reassessing the Inclusion of Race in Diagnosing Kidney Disease, JASN 2020). The CKD-EPI equation should not be used for patients with unstable renal function and has not been validated in children and those over 70. Current interpretive data was last reviewed 2021. Blood 11/03/2024 1:26 AM ORACLE ERP DEVELOPER 11/03/2024 1:28 AM ORACLE ERP DEVELOPER us Pat Rosas MD LAB BLOOD ORDERABLE S Final Result Performing Organization Address City/[facility]/ZIP Co de Phone Number [facility] [facility] [address] [facility] Department [place] [address] * Hemoglobin A1c (03/29/2024 7:16 AM CDT) Hgb A1C 5.5 4.0 - 5.6 % Estimated Average Glucose 111 mg/dL [facility] Comment: The ADA recommends reporting an estimated Average Glucose (eAG) with all Hemoglobin A1c results using the equation derived from a study of 507 normal and diabetic adults. Minority populations were underrepresented and children were not included. (Diabetes Care 31:9670-4518, 2008). The eAG is not equivalent to a fasting glucose. Blood 03/29/2024 7:16 AM CDT 03/29/2024 7:20 AM CDT us Marcial Santiago MD LAB BLOOD ORDERABLES Final Result Performing Organization Address City/[facility]/ZIP Co de Phone Number [facility] [address] [facility] [place] [address] * (ABNORMAL) Lipid panel (03/29/2024 7:16 AM CDT) Cholesterol 110 30 - 199 mg/dL Comment: Interpretive Data Ages < or = 19 years Acceptable: <170 mg/dL Borderline high: 170-199 mg/dL High: >or= 200 mg/dL Ages > or = 20 years Desirable: <200 mg/dL Borderline high: 200-239 mg/dL High: >or= 240 mg/dL Literature References: 1. Expert Panel on Integrated Guidelines for Cardiovascular Health and Risk Reduction in Children and Adolescents. Pediatrics 2011;128:S213 2. NCEP Expert Panel. Circulation 2004;110:227 Current Interpretive Data was last revised on 2018. Triglycerides 212(H) <=149 mg/dL [facility] Comment: Interpretive Data Ages < or = 9 years Acceptable: <75 mg/dL Borderline high: 75-99 mg/dL High: >or= 100 mg/dL Ages 10 to 20 years Acceptable: <90 mg/dL Borderline high: 90-129 mg/dL High: >or= 130 mg/dL Ages > or = 20 years Desirable: <150 mg/dL Borderline high: 150-199 mg/dL High: 200-499 mg/dL Very high: >or= 499 mg/dL Literature References: 1. Expert Panel on Integrated Guidelines for Cardiovascular Health and Risk Reduction in Children and Adolescents. Pediatrics 2011;128:S213 2. NCEP Expert Panel. Circulation 2004;110:227 Current Interpretive Data was last revised on 2018. HDL 40 >=40 mg/dL [facility] VERA Comment: Interpretive Data Ages < or = 19 years Acceptable: >45 mg/dL Borderline low: 40-45 mg/dL Low: <40 mg/dL Ages > or = 20 years Desirable: >or= 60 mg/dL Low: <40 mg/dL Literature References: 1. Expert Panel on Integrated Guidelines for Cardiovascular Health and Risk Reduction in Children and Adolescents. Pediatrics 2011;128:S213 2. NCEP Expert Panel. Circulation 2004;110:227 Current Interpretive Data was last revised on 2018. LDL, calculated 28 <=129 mg/dL [facility] VERA Comment: Interpretive Data Ages < or = 19 years Acceptable: <110 mg/dL Borderline high: 110-129 mg/dL High: >or= 130 mg/dL Ages > or = 20 years Optimal: <100 mg/dL Near optimal: 100-129 mg/dL Borderline high: 130-159 mg/dL High: >160 mg/dL Literature References: 1. Expert Panel on Integrated Guidelines for Cardiovascular Health and Risk Reduction in Children and Adolescents. Pediatrics 2011;128:S213 2. NCEP Expert Panel. Circulation 2004;110:227 Current Interpretive Data was last revised on 2018. Non-HDL Cholesterol 70 mg/dL [facility] VERA Comment: Interpretive Data Ages < or = 19 years Acceptable: <120 mg/dL Borderline high: 120-144 mg/dL High: >145 mg/dL Ages > or = 20 years When triglycerides are >200 mg/dL, Non-HDL cholesterol is a secondary target of therapy with treatment goals that are 30 mg/dL greater than the LDL cholesterol target. Literature References: 1. Expert Panel on Integrated Guidelines for Cardiovascular Health and Risk Reduction in Children and Adolescents. Pediatrics 2011;128:S213 2. NCEP Expert Panel. Circulation 2004;110:227 Current Interpretive Data was last revised on 2018. Chol/HDL ratio 3 [facility] Blood 03/29/2024 7:16 AM CDT 03/29/2024 7:20 AM CDT us Marcial Santiago MD LAB BLOOD ORDERABLES Final Result [facility] [address] [facility] Department [place] [address] * Occult blood, fecal non neoplasm screening (12/12/2017 8:20 AM ORACLE ERP DEVELOPER) Stool Occult Blood NEGATIVE NEGATIVE 12/12/2017 9:59 AM ORACLE ERP DEVELOPER [facility] HISTORICAL RESULTS 12/12/2017 8:20 AM ORACLE ERP DEVELOPER 12/12/2017 9:21 AM ORACLE ERP DEVELOPER Narrative [facility] HISTORICAL RESULTS - 12/12/2017 9:59 AM ORACLE ERP DEVELOPER Collected By kf Collected By kf us Edis Collado DO LAB BODY FLUIDS AND STOOLS ORDERABLES Final Result Performing Organization Address City/[facility] Co de Phone Number [facility] HISTORICAL RESULTS * Hepatitis panel, acute (01/11/2017 5:12 PM ORACLE ERP DEVELOPER) HepBsAg NONREACT NONREACTIVE 01/11/2017 6:12 PM ORACLE ERP DEVELOPER [facility] HISTORICAL RESULTS Comment: Siemens CentaurXP using JAZZY (chemiluminescent immunoassay) technology. NONREACTIVE: IgM antibodies to Hepatitis B Surface antigen not detected. REACTIVE: IgM antibodies to Hepatitis B Surface antigen detected. Reactive results will be confirmed by neutralization testing. HBsAb qn 3.41 mIU/mL 01/11/2017 6:01 PM ORACLE ERP DEVELOPER [facility] HISTORICAL RESULTS Comment: [employer] CentaurXP using JAZZY (chemiluminescent immunoassay) technology. 9.99 IU/L or less.....NONREACTIVE: IgM antibodies to Hepatitis B Surface antibody are not detected. 10.00 IU/L or greater..REACTIVE: IgM antibodies to Hepatitis B Surface antibody are detected. Hep B core IgM NONREACT NONREACTIVE 7 6:40 PM ORACLE ERP DEVELOPER [facility] HISTORICAL RESULTS Comment: [employer] CentaurXP using JAZZY (chemiluminescent immunoassay) technology. NONREACTIVE: IgM antibodies to Hepatitis B Core antigen not detected. EQUIVOCAL: IgM antibodies to Hepatitis B Core antigen may or may not be present. Obtain a new specimen and retest. REACTIVE: IgM antibodies to Hepatitis B Core antigen detected. Hep A IgM NONREACT NONREACTIVE 01/11/2017 6:42 PM ORACLE ERP DEVELOPER [facility] HISTORICAL RESULTS Comment: [employer]ens CentaurXP using JAZZY (chemiluminescent immunoassay) technology. NONREACTIVE: IgM antibodies to Hepatitis A not detected. This does not exclude possibility of exposure to Hepatitis A or early acute infection. EQUIVOCAL:IgM antibodies to Hepatitis A may or may not be present. Suggest recollection and retest. REACTIVE: Antibodies to Hepatitis A detected. Hep C Ab NONREACT NONREACTIVE 01/11/2017 6:40 PM ORACLE ERP DEVELOPER [facility] HISTORICAL RESULTS Comment: [employer] CentaurXP using JAZZY (chemiluminescent immunoassay) technology. NONREACTIVE: Antibodies to Hepatitis C not detected. This does not exclude early acute Hepatitis C infection, possibility of exposure to Hepatitis C, antibodies below detection limit, or to lack of antibody reactivity to the antigen used in this assay. EQUIVOCAL: Antibodies to Hepatitis C may or may not be present. Sample to be confirmed by real-time PCR method. REACTIVE: Antibodies to Hepatitis C detected. 01/11/2017 5:12 PM ORACLE ERP DEVELOPER 01/11/2017 5:19 PM ORACLE ERP DEVELOPER Wenceslao Arceo MD LAB MICROBIOLOGY - GENERAL [place] Final Result [facility] HISTORICAL RESULTS from Last 3 Months or Most Recently Relevant to Health Maintenance Insurance [facility] MEDICARE ADVANTAGE Advance Directives For more information, please contact: [phone] Documents on File Type Date Recorded Patient Nuclear Physician Expl anation ADVANCE DIRECTIVE 11/03/2024 5:22 AM POLS T - Phys Order for PT Preferences ADVANCE DIRECTIVE 03/30/2024 3:29 PM Power of Completions Engineer-Medical * Full Code (Latest Code Status on File) Date Activated Date Inactivated Comments 04/18/2024 9:24 PM 04/25/2024 5:04 PM * Full Code Date Activated Date Inactivated Comments 03/28/2024 11:18 PM 04/08/2024 2:14 AM Care Teams Wheel Press Operator Relationship Specialty Start Date End Date Felicia Kuo NP [address] [place], [place] [id number] PCP - General Nurse Practitioner 07/28/23
--- OUTSIDE RECORDS SUMMARY | 2025-04-09 17:50 | XMS_ITS | Referral Summary ---
Author Organization [facility] Address [address] [place] [address] Phone Care Team Providers Care Java Grails Developer Name Role Phone Felicia Kuo NP Primary Care Provider Encounters Date Type Department Care Team Description 01/09/2025 Telephone [facility] Accountable Care Organization [address] [place] [id number] Iliana Dumont MA from Last 3 Months Allergies Active Allergy Reactions Criticality Noted Date Comments Ascorbic Acid Unknown 08/07/2021 Aspirin Hives Medium 01/05/2020 Hives Cefdinir Other (See comments),Unknown Low 02/04/2021 Codeine Hives,Stomach upset,Other (See comments),Rash,Vomiting Medium 01/12/2016 Hives Nitrofurantoin Nausea And Vomiting,Vomiting Low 12/29/2016 [place] Hives Medium 06/19/2020 Sulfamethoxazole Unknown 03/28/2024 Sulfamethoxazole-Trimethoprim [...] weakness 04/18/2024 Coronary artery disease invo lving atka coronary artery of atka heart without angina pectoris 04/05/2024 Abdominal pain [...] (07/13/2024): Added automatically from request for surgery [id number] Abnormal vaginal bleeding 05/24/2022 Numbness and tingling 11/13/2021 Abnormal stress test 08/28/2021 Overview (07/13/2024): Last Assessment & Plan: 01/2020- We will proceed with [facility] for eval Chronic atrial fibrillation, [...] (06/07/2020): Added automatically from request for surgery [id number] JUAN (obstructive sleep apnea) 06/07/2020 Overview (06/07/2020): Added automatically from request for surgery [id number] Poor dentition 06/07/2020 Overview (06/07/2020): Added automatically from request for surgery [id number] Mixed hyperlipidemia 05/09/2019 Overview (07/13/2024): Last Assessment [...] (05/23/2018): Added automatically from request for surgery [id number] Hypertensive disorder 05/18/2018 Overview (07/13/2024): On lisinopril [...] nodule to be artifact on prior image. Social History Tobacco Use Types Packs/Day Years Used Date Smoking Tobacco: Never Smokeless Tobacco: Never Alcohol Use Standard Drinks/Week Comments No 0 (1 standard drink = 0.6 oz pur e alcohol) [facility] Utilities Answer Date Recorded In the past 12 months has e [employer], gas, oil, or water [employer] threatened to shut off services in your [...] often do you attend chur ch or caodaism services? Never 04/19/2024 Do you belong to any clubs o r organizations such as caodaism groups, unions, fraternal or athletic groups, or [...] any time in the past 12 m [facility], were you homeless or living in a penitentiary (including now)? No 04/19/2024 Personal Safety Answer Date Recorded Have you ever been in or are you currently in a harmful physical or emotional relationship or is someone making you feel afraid or unsafe? Denies 11/02/2024 Comments No Sex and Gender Information Value Date Recorded Sex Assigned at Not on file Legal Sex Female 3:21 AM ANDROID ARCHITECT Gender Identity Female 08/19/2023 9:25 AM CDT Sexual Orientation Not on file Last Filed Vital Signs Vital Sign Reading Time Taken Comments Blood Pressure 108/61 11/02/2024 11:45 PM ANDROID ARCHITECT Pulse 69 11/03/2024 5:00 AM ANDROID ARCHITECT Temperature 36.2 C (97.2 F) 11/02/2024 8:49 PM ANDROID ARCHITECT Respiratory Rate 14 11/03/2024 5:00 AM ANDROID ARCHITECT Oxygen Saturation 95% 11/03/2024 5:00 AM ANDROID ARCHITECT Inhaled Oxygen Concentration - - Weight 73.9 kg (163 lb) 11/02/2024 3:41 PM ANDROID ARCHITECT Height 154.9 cm (5' 1) 11/02/2024 3:41 PM ANDROID ARCHITECT Body Mass Index 30.8 11/02/2024 3:41 PM ANDROID ARCHITECT Plan of Treatment Not on file Procedures Procedure Name Priority Date/Time Associated Diagnosis Comments EGFR STAT 11/03/2024 1:26 AM ANDROID ARCHITECT HEMOGLOBIN A1C Routine 03/29/2024 7:16 AM CDT LIPID PANEL Routine 03/29/2024 7:16 AM CDT OCCULT BLOOD, FECAL (FIT) Routine 12/12/2017 8:20 AM ANDROID ARCHITECT HEPATITIS PANEL, ACUTE Routine 01/11/2017 5:12 PM ANDROID ARCHITECT from Last 3 Months or Most Recently Relevant to Health Maintenance Results * eGFR (11/03/2024 1:26 AM ANDROID ARCHITECT) eGFR >90 >=60 mL/min/1. 73 m2 Comment: [...] of Race in Diagnosing Kidney Disease, JASN 2021). The CKD-EPI equation should not be used for patients with unstable renal function and has not been validated in children and those over 70. Current interpretive data was last reviewed 2021. Blood 11/03/2024 1:26 AM ANDROID ARCHITECT 11/03/2024 1:28 AM ANDROID ARCHITECT Pat Rosas MD LAB BLOOD ORDERABLE S Final Result SELAM [facility] [address] [facility] Department [place] [address] * Hemoglobin A1c (03/29/2024 7:16 AM CDT) Hgb A1C 5.5 4.0 - 5.6 % Estimated Average Glucose 111 mg/dL SELAM Comment: The ADA recommends reporting an estimated Average Glucose (eAG) with all Hemoglobin A1c results using the equation derived from a study of 507 normal and diabetic adults. Minority populations were underrepresented and children were not included. (Diabetes Care 31:4476-3294, 2008). The eAG is not equivalent to a fasting glucose. Blood 03/29/2024 7:16 AM CDT 03/29/2024 7:20 AM CDT Marcial Santiago MD LAB BLOOD ORDERABLES Final Result Performing Organization Address City/[facility] Co de Phone Number SELAM [address] [facility] [place] [address] * (ABNORMAL) Lipid panel (03/29/2024 7:16 AM CDT) Pathologist [facility] Cholesterol 110 30 - 199 mg/dL Comment: [...] on 2018. Triglycerides 212(H) <=149 mg/dL SELAM VERA Comment: Interpretive Data Ages [...] on 2018. HDL 40 >=40 mg/dL SELAM Comment: Interpretive Data Ages < [...] 2018. LDL, calculated 28 <=129 mg/dL SELAM Comment: Interpretive Data Ages < [...] on 2018. Non-HDL Cholesterol 70 mg/dL SELAM Comment: Interpretive Data Ages < [...] MD LAB BLOOD ORDERABLES Final Result SELAM [address] [facility] Department [place] [address] * Occult blood, fecal non neoplasm screening (12/12/2017 8:20 AM ANDROID ARCHITECT) Stool Occult Blood NEGATIVE NEGATIVE 12/12/2017 9:59 AM ANDROID ARCHITECT [facility] HISTORICAL RESULTS 12/12/2017 8:20 AM ANDROID ARCHITECT 12/12/2017 9:21 AM ANDROID ARCHITECT Narrative [facility] HISTORICAL RESULTS - 12/12/2017 9:59 AM ANDROID ARCHITECT Collected By kf Collected By kf us Edis Collado DO LAB BODY FLUIDS AND STOOLS ORDERABLES Final Result [facility] HISTORICAL RESULTS * Hepatitis panel, acute (01/11/2017 5:12 PM ANDROID ARCHITECT) HepBsAg NONREACT NONREACTIVE 01/11/2017 6:12 PM ANDROID ARCHITECT [facility] HISTORICAL RESULTS Comment: [employer] using JAZZY (chemiluminescent immunoassay) technology. NONREACTIVE: IgM antibodies to Hepatitis B Surface antigen not detected. REACTIVE: IgM antibodies to Hepatitis B Surface antigen detected. Reactive results will be confirmed by neutralization testing. HBsAb qn 3.41 mIU/mL 01/11/2017 6:01 PM ANDROID ARCHITECT [facility] el? HISTORICAL RESULTS Comment: [employer] using JAZZY (chemiluminescent immunoassay) technology. 9.99 IU/L or less.....NONREACTIVE: IgM antibodies to Hepatitis B Surface antibody are not detected. 10.00 IU/L or greater..REACTIVE: IgM antibodies to Hepatitis B Surface antibody are detected. Hep B core IgM NONREACT NONREACTIVE 7 6:40 PM ANDROID ARCHITECT [facility] HISTORICAL RESULTS Comment: [employer] using JAZZY (chemiluminescent immunoassay) technology. NONREACTIVE: IgM antibodies to Hepatitis B Core antigen not detected. EQUIVOCAL: IgM antibodies to Hepatitis B Core antigen may or may not be present. Obtain a new specimen and retest. REACTIVE: IgM antibodies to Hepatitis B Core antigen detected. Hep A IgM NONREACT NONREACTIVE 01/11/2017 6:42 PM ANDROID ARCHITECT [facility] HISTORICAL RESULTS Comment: [employer] using JAZZY (chemiluminescent immunoassay) technology. NONREACTIVE: IgM antibodies to Hepatitis A not detected. This does not exclude possibility of exposure to Hepatitis A or early acute infection. EQUIVOCAL:IgM antibodies to Hepatitis A may or may not be present. Suggest recollection and retest. REACTIVE: Antibodies to Hepatitis A detected. Hep C Ab NONREACT NONREACTIVE 01/11/2017 6:40 PM ANDROID ARCHITECT [facility] HISTORICAL RESULTS Comment: [employer] using JAZZY [...] to Hepatitis C detected. 01/11/2017 5:12 PM ANDROID ARCHITECT 01/11/2017 5:19 PM ANDROID ARCHITECT Wenceslao Arceo MD LAB MICROBIOLOGY - GENERAL [place] Final Result Performing Organization Address City/State/[facility] Co de Phone Number [facility] HISTORICAL RESULTS from Last 3 Months or Most Recently Relevant to Health Maintenance Insurance [facility] Advance Directives For more information, please contact: [phone] Documents on File Type Date Recorded Patient Whipped Topping Supervisor Expl anation ADVANCE DIRECTIVE 11/03/2024 5:22 AM POLS T - Phys Order for PT Preferences ADVANCE DIRECTIVE 03/30/2024 3:29 PM Power of Library Media Technician-Medical * Full Code (Latest Code Status on File) Date Activated Date Inactivated Comments 04/18/2024 9:24 PM 04/25/2024 5:04 PM * Full Code Date Activated Date Inactivated Comments 03/28/2024 11:18 PM 04/08/2024 2:14 AM Care Teams Java Grails Developer Relationship Specialty Start Date End Date Felicia Kuo NP [address] [place] [address] PCP - General Nurse Practitioner 07/28/23
--- OUTSIDE RECORDS SUMMARY | 2025-04-09 17:50 | XMS_ITS | Encounter Summary ---
Author Organization [facility] Address [address] [facility] [place] [address] Care Team Providers Care Charter Boat Operator Name Role Phone [facility] Jesusita Felicia Wu APRN-COMMUNITY DEVELOPMENT MANAGER Primary Care Provider [phone] Reason for Visit * Reason Onset Date Comments Future Appointment 04/13/2023 Encounter Details Date Type Department Care Team (Late st Contact Info) Description 04/13/2023 Telephone [facility] [address] [place] [address] Rodolfo Patel MD [address] [address] [place] [address] Future Appointment Social History Tobacco Use Types Packs/Day Years Used Date Smoking Tobacco: Never Smokeless Tobacco: Never Alcohol Use Standard Drinks/Week Comments No 0 (1 standard drink = 0.6 oz pur e alcohol) Comments No Sex and Gender Information Value Date Recorded Sex Assigned at Not on file Legal Sex Female 5:00 PM CDT Gender Identity Not on file Sexual Orientation Not on file COVID-19 Exposure Response Date Recorded In the last 10 days, have yo u been in contact with someone who was confirmed or suspected to have Coronavirus/COVID-19? Unable to assess 04/13/2023 3:13 PM CDT documented as of this encounter Miscellaneous Notes * Telephone Encounter - Piedad Walls - 04/13/2023 2:06 PM CDT PT would like to reschedule new patient appointment scheduled for 04.14.23 with Doctor Ger. PT expresses wanting have a female doctor. PT CB# [phone] documented in this encounter Plan of Treatment Not on file documented as of this encounter Visit Diagnoses Not on filedocumented in this encounter Care Teams Charter Boat Operator Relationship Specialty Start Date End Date Felicia Kuo APRN-MONTSERRAT [address] [place] [id number] PCP - General 06/17/21 [place], [place] [address] 12/02/17 documented as of this encounter
--- OUTSIDE RECORDS SUMMARY | 2025-04-09 17:50 | XMS_ITS | Clinical Summary ---
Author Organization [facility] Address [address] [place] [address] Phone Care Team Providers Care Salvage Mend Worker Name Role Phone Renetta Ford MD Primary Care Provider [phone] Allergies Active Allergy Reactions Criticality Noted Date Comments Aspirin Rash 01/12/2016 Codeine Rash 01/12/2016 Nitrofurantoin Monohyd Macro Vomiting 017 Medications lisinopril (PRINIVIL, ZESTRIL) 20 MG Tablet Take 40 mg by mouth daily. 6 Active ondansetron (ZOFRAN-ODT) 4 MG TABLET DISPERSIBLE Take 1 Tab by mouth every 8 hours as needed for Nausea. 10 Tab 0 6 Active methylPREDNISolo ne (MEDROL DOSPACK) 4 MG Tablet Therapy Pack See product package insert for dosing schedule 21 Tab 7 Active amLODIPine (NORVASC) 5 MG Tablet Take 5 mg by mouth daily. Active Omeprazole 20 MG Tablet Delayed Response Take 1 Tab by mouth daily. Active metFORMIN (GLUCOPHAGE-XR) 500 MG TABLET SR 24 HR Take 500 mg by mouth daily. This RX is for Metformin SR. Active Calcium Carb-Cholecalcif opal (CALCIUM 600 + D PO) Take 1 Tab by mouth daily. Active Social History Tobacco Use Types Packs/Day Years Used Date Smoking Tobacco: Never Smokeless Tobacco: Never Alcohol Use Standard Drinks/Week Comments No 0 (1 standard drink = 0.6 oz pur e alcohol) Comments No Sex and Gender Information Value Date Recorded Sex Assigned at Not on file Legal Sex Female 7:18 PM CDT Gender Identity Not on file Sexual Orientation Not on file Last Filed Vital Signs Vital Sign Reading Time Taken Comments Blood Pressure 107/64 12/30/2018 9:45 PM FINISHED GOODS PLANNER Pulse 101 12/30/2018 9:45 PM FINISHED GOODS PLANNER Temperature 37.3 C (99.1 F) 12/30/2018 7:20 PM FINISHED GOODS PLANNER Respiratory Rate 18 12/30/2018 9:45 PM FINISHED GOODS PLANNER Oxygen Saturation 94% 12/30/2018 9:45 PM FINISHED GOODS PLANNER Inhaled Oxygen Concentration - - Weight 90.7 kg (200 lb) 12/30/2018 7:19 PM FINISHED GOODS PLANNER Height 157.5 cm (5' 2) 12/30/2018 7:19 PM FINISHED GOODS PLANNER Body Mass Index 36.58 12/30/2018 7:19 PM FINISHED GOODS PLANNER Plan of Treatment Health Maintenance Due Date Last Done Comments Hepatitis C Virus (HCV) Screening 1960 TdaP Immunization 1960 Colonoscopy 2003 Colorectal Cancer Screening 2003 Cologuard 2008 Immunochemical Fecal Occult Blood 2008 Pneumococcal Immunization (5 0+ years) (1 of 1 - PCV) 2008 Zoster Immunization (1 of 2) 2008 Influenza Immunization (#1) 2024 SARS-COV-2 Immunization ( - 2023- season) 2024 Respiratory Syncytial Virus (RSV) Immunization (Adult) (1 - 1-dose 75+ series) 2033 Hepatitis B Immunization Aged Out No longer eligible based on patient's age to complete this topic Meningococcal Immunization (ACWY) Aged Out No longer eligible based on patient's age to complete this topic Rotavirus Immunization Aged Out No lo nger eligible based on patient's age to complete this topic Insurance [address] [place] [id number] MEDICAID [employer] Care Teams Salvage Mend Worker Relationship Specialty Start Date End Date Renetta Ford MD [address] [place] [address] PCP - General Geriatric Medicine 12/30/18
--- NOTE | 2025-04-09 19:12 | ECG_ITS ---
Test Date: 2025-04-09 19:39:14 Measurements Intervals [place] Rate: 63 P: 35 NV: 154 QRS: -27 QRSD: 88 T: 64 QT: 394 QTc: 404 Interpretive Statements SINUS RHYTHM POOR R WAVE PROGRESSION BORDERLINE ST-T WAVE ABNORMALITY- HIGH LATERAL LEADS BASELINE ARTIFACT- I, II, AVR, V3 BORDERLINE ECG Compared to ECG 11/25/2024 00:50:28 NO SIGNIFICANT CHANGE Electronically Signed On 04-09-2025 20:39:37 CDT by Leonel Estrada D.O.
[2025-04-09 21:24] VITALS: BP 134/78; PULSE 93; PULSE 96; RESP 17; O2SAT 99
--- NOTE | 2025-04-09 22:09 | ED_ITS ---
HPI - Dizziness General Chief Complaint: Dizziness Stated Complaint: Dizzy, nausea-constipated Time Seen by Provider: 04/09/25 21:47 Source: patient and family Mode of arrival: EMS Limitations: physical limitation History of Present Illness HPI Narrative: Patient with history of stroke complicated by L sided deficits and R hemicrani presents with report of dizziness and nausea as well as constipation. Had been at a nursing facility for a recent CVA but had become frustrated because not being given stool softener/laxative for bowel movement. Discharged home with son today and brought by EMS. Denies any trauma. Subjective fever. Feels like her left neck gets tight and causes her to feel short of breath. On Elliquis. LBM 4 days ago. Denies diarrhea. Having low abdominal pain. Abdominal surgery history includes kd. Dizziness is not preceded by any head movement. Bilateral ear pain but no hearing changes or tinnitus. Describes lightheadedness but no dysequilibrium or spinnning sensation. Related Data Home Medications ?Medication ?Instructions ?Recorded ?Confirmed ?Last Taken ?Type acetaminophen 325 mg tablet 650 mg PO Q4H PRN Fever Or Pain 12/19/23 09/09/24 Unknown History melatonin 3 mg tablet 3 mg PO HS 12/19/23 09/10/24 09/08/24 19:00 History tramadol 50 mg tablet 50 mg PO Q8H PRN Pain 09/09/24 09/10/24 Unknown History Allergies Allergy/AdvReac Type Severity Reaction Status Date / Time codeine Allergy Unknown HIVES, Verified 09/11/24 11:21 VOMITING nitrofurantoin (From Allergy Rash Verified 09/11/24 11:21 Macrobid) strawberry Allergy Hives Verified 09/11/24 11:21 Sulfa (Sulfonamide AdvReac Other Verified 09/11/24 11:21 Antibiotics) [facility] Past Medical History Medical History (Updated 04/11/25 @ 00:01 by Background Daemon) Chronic anticoagulation GIB (gastrointestinal bleeding) Dieulafoy lesion of stomach Vaginal bleeding Chronic anticoagulation Atrial fibrillation Anxiety Depression Hyperlipidemia Gastroesophageal reflux disease Fatty liver Hypertension Diastolic heart failure Type 2 diabetes mellitus Left bundle-branch block, unspecified Cerebral infarction due to embolism of right middle cerebral artery (11/2023) failed mechanical thrombectomy status post hemicraniectomy for edema residual left hemiplegia 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 Code status: Full code. Smoking status: Never smoker Second hand tobacco smoke exposure: No Alcohol intake: never Substance use: never Do You Feel Safe in your Home?: No Lack of Transportation: No Lack of Food: Never True Current Housing: I Have Housing Concerned About Future Housing: No Difficulty Paying Gas/Electric Bills: No Difficulty Paying for Meds: No Currently Unemployed: No Education: Decline to Answer Difficulty w/ Childcare or Family Care: No Living arrangements: with family Additional living arrangements comments: Previously [facility] but home with home health care upon hospital discharge Sep 2024 then [facility] 11/16/24 and discharged to home with son 04/09/25 Spiritual care concerns: No Exam 2 Narrative: GENERAL: Well-appearing, well-nourished, and in no acute distress. HEAD: Right leticia-crani, not bulging on the right with absent brain matter but otherwise not sunken beyond that. EYES: Non injected, non icteric. Mild asymmetry but otherwise horizontal and vertical extraocular movements intact without entrapment or nystagmus ENT: Nares clear, no rhinorrhea or epistaxis. Gross auditory acuity intact. Bilateral tympanic membranes usually visualized without erythema, bulging, or effusion (although scant clear bubble appreciated behind R TM). NECK: Supple. No meningismus. CHEST: Speaking in full sentences. No respiratory distress. HEART: Regular rate and rhythm. . ABDOMEN: Soft, nondistended. No rigidity or guarding. Not peritoneal EXTREMITIES: Normal range of motion. No lower extremity edema. SKIN: Warm, dry, no rash. NEURO: Alert and oriented. Answering questions. Following commands. No aphasia. Left sided deficits PSYCH: Normal mood and affect. Course Vital Signs Vital signs: Vital Signs Temperature 97.7 F 04/09/25 17:50 Pulse Rate 70 04/09/25 17:50 Respiratory Rate 17 04/09/25 17:50 Blood Pressure 106/66 04/09/25 17:50 Pulse Oximetry 95 04/09/25 17:50 Oxygen Delivery Room Air 04/09/25 17:50 Temperature 97.7 F 04/09/25 17:50 Pulse Rate 69 04/10/25 02:03 Respiratory Rate 17 04/10/25 02:03 Blood Pressure 108/61 04/10/25 02:03 Pulse Oximetry 97 04/10/25 02:03 Oxygen Delivery Room Air 04/09/25 17:50 MDM - Dizziness MDM Narrative Medical decision making narrative: Patient presents with dizziness, nausea that started today. Has felt like constipated , LBM 4 days ago. History R hemicrani and recently at a facility for another CVA. In the emergency department they are afebrile with vital signs within normal limits. Will be unable to assess ortho stats given patient is bedbound/nonambulatory. Patient reassessed at 23:30; her dizziness is better but she is still nauseated. Ondansetron ordered. Spoke with radiologist java solutions architect regarding the CT brain, prior study for comparison is from nearly a decade ago. Provided context of interval events. Spoke with NSGY Dr Lyon at [facility] at approximately 00:00. Patient initially reviews images they have from 7 months ago: Encephalomelacia, hyperdensity surrounding outer portion of parynchyma but posterior right; no bone flap present. Upon review of new images today, he notes that she has a new R intraparenchymal hemorrhage. Although no clearly identifiable trauma, there is concerning that this was possible (patient would not require the same level of direct trauma given exposure/diminished protection). She is on Elliquis for history of atrial fibrillation. Would recommend administering PCC / Kaycentra and sending ED to ED. Unable to obtain Xa labs at this hospital. Kaycentra ordered. Updated patient at bedside who verifies understanding. I was on hold with the transfer center at [facility] for a while. resident care coordinator was eventually able to notify me that brief report had been given to java solutions architect ED attending physicician Dr Bunn who accepts patient though I did not discuss with them directly. Updated son via phone at 00:20. Urinalysis with some bacteria and other abnormalities although not clearly a isaak urinary tract infection, out of an abundance of precaution 1 dose ceftriaxone is given and will await urine culture. Procedure Note performed by myself 04/10/25: Ultrasound-guided peripheral venous catheter insertion An ultrasound-guided peripheral venous catheter is required in order to obtain vascular access in this patient. Alcohol prep pad is used to sterilize the area and a 20 gauge catheter was successfully inserted into the L AC under ultrasound visualization. The catheter flushes and draws back without difficulty or signs of extravasation. Catheter secured in place with Tegaderm. Transportation arranged. Differential Diagnosis Differential diagnosis: Likely adverse reaction to drug, benign paroxysmal positional vertigo, orthostatic hypotension, vertebral basilar insufficiency, cerebrovascular accident, acute vestibular neuronitis, transient cerebral ischemia and other (dehydration; constipation; intracranial hemorrhage; ) Lab Data Attestation: I reviewed the patient's lab results. Lab results narrative: UDS positive for barbiturates and benzodiazepines 04/10/25 00:02 04/10/25 00:02 Labs: Lab Results 04/09/25 04/10/25 Range/Units 23:16 00:02 WBC 9.0 (4.5-10.0) K/mm3 RBC 4.23 (4.2-5.4) M/mm3 Hgb 12.4 D (12.0-15.0) g/dL Hct 38.5 (37.0-47.0) % MCV 91.0 (80-100) fl MCH 29.3 (26-34) pg MCHC 32.2 (32-36) g/dl RDW 13.3 (11.5-14.5) % Plt Count 213 (150-375) k/mm3 MPV 12.0 H (7.4-10.4) fl Immature Gran % (Auto) 0.3 (0-0.5) % Neut % (Auto) 79.9 H (45.5-73.1) % Lymph % (Auto) 12.6 L (18.3-44.2) % [place] % (Auto) 6.8 (2.6-8.5) % Eos % (Auto) 0.2 (0-4.4) % Baso % (Auto) 0.2 (0.2-1.2) % Lymph # (Auto) 1.13 (0.9-3.2) K/mm3 [place] # (Auto) 0.6 (0.1-0.6) K/mm3 Eos # (Auto) 0.0 (0-0.3) K/mm3 Baso # (Auto) 0.0 (0.0-0.1) K/mm3 Abs Immat Gran (auto) 0.03 (0.00-0.031) K/mm3 Absolute Neuts (auto) 7.2 H (1.3-6.7) K/mm3 Absolute Nucleated RBC 0.000 (0.0-0.012) K/mm3 Nucleated RBC % 0.0 (0.0-0.2) % PT 19.4 H (11.1-14.7) Seconds INR 1.6 APTT 29.9 (22.3-36.8) Seconds Sodium 139 (137-145) mmol/L Potassium 3.9 (3.4-5.0) mmol/L Chloride 104 (98-107) mmol/L Carbon Dioxide 28 (22-30) mmol/L Anion Gap 7 (4-12) mmol/L BUN 20 H (7-17) mg/dL Creatinine 0.53 L (0.7-1.0) mg/dL Estim Creat Clear Calc 78 ml/min Estimated GFR > 60 (59 - ) Glucose 124 H (65-110) mg/dL Calcium 9.7 (8.4-10.2) mg/dL Total Bilirubin 0.6 (0.2-1.3) mg/dL AST 26 (14-36) U/L ALT 13 (6-35) U/L Alkaline Phosphatase 73 (38-126) U/L Total Protein 7.0 (6.3-8.2) g/dL Albumin 3.9 (3.5-5.1) g/dL Lipase 50 (23-300) U/L Urine Color Dark yellow (Yellow) Urine Appearance Clear (Clear) Urine pH 5.0 (5.0-9.0) Ur Specific [place] 1.026 (1.001-1.035) Urine Protein Trace (Negative) mg/dL Urine Glucose (UA) Negative (Negative) mg/dL Urine Ketones Trace H (Negative) mg/dL Ur Blood (Man) Negative (Negative) Urine Nitrate Positive H (Negative) Urine Bilirubin Negative (Negative) Urine Urobilinogen 1.0 (<2.0) mg/dL Add Ur Microanalysis Reviewed Leukocyte Esterase Rfl Trace H (Negative) LUISA/UL Urine RBC 0-2 (0-2) /hpf Urine WBC 0-5 (0-3) /hpf Ur Squamous Epith Cells None seen (Few) /hpf Urine Bacteria 4+ H /hpf Urine Casts >20 Urine Opiates Screen Negative (Negative) Urine Methadone Screen Negative (Negative) Ur Barbiturates Screen Positive A (Negative) Ur Phencyclidine Scrn Negative (Negative) Ur Amphetamine Screen Negative (Negative) U Benzodiazepines Scrn Positive A (Negative) Urine Cocaine Screen Negative (Negative) U Cannabinoids Screen Negative (Negative) Influenza A (RT-PCR) Negative (Negative) Influenza B (RT-PCR) Negative (Negative) RSV (RT-PCR) Negative (Negative) SARS-CoV-2 RNA (RT-PCR) Negative (Negative) Imaging Data Attestation: I personally reviewed and interpreted this imaging study as follows: My impression: Reviewed the CT myself; the area on the right is concerning for intraparynchymal bleed given its location and appearance Radiologist's impression: IMPRESSION: Thin subdural collection over the superior aspect of the right hemisphere, may represent subdural hemorrhage or chronic post surgical change. No recent post surgical imaging is available for comparison. Chronic right sphenoid sinusitis. Potential small volume subdural hemorrhage versus post surgical change reported telephonically to Dr. Hampton by Dr. Healy at 10:54 PM on 04/09/2025. IMPRESSION: No acute fracture or traumatic malalignment in the cervical spine. Right thyroid nodule, recommend nonemergent, outpatient thyroid ultrasound for further characterization. IMPRESSION: Small intraluminal bladder calcification. Bladder wall thickening and stranding, as can be seen with cystitis, correlate with urinalysis. Distal sigmoid and rectal wall thickening may be secondary to colitis/proctitis in the appropriate clinical context. ECG Data EKG #1: Attestation: I personally reviewed and interpreted this ECG as follows: ECG completion date: 04/09/25 ECG completion time: 19:39 Interpretation: Normal sinus rhythm at a rate of 63 beats per minute. W[place] interval 154. QRS 88. QT/QTC 394/401. Borderline left axis deviation given QRS is positive in 1, negative in 3 and AVF, and trending is negative in 2. No T-wave inversions. Discharge Plan Discharge Clinical Impression: Sphenoid sinusitis, Dizziness, Nausea, Right thyroid nodule, Colitis, Intraparenchymal hemorrhage of brain, Abnormal urinalysis Patient Disposition: Acute Care Hospital Condition: Stable Additional Instructions: Right thyroid nodule, recommend nonemergent, outpatient thyroid ultrasound for further characterization. Patient Language: Chinese Prescriptions: No Action tramadol 50 mg tablet 50 mg PO Q8H PRN (Reason: Pain) cephalexin 500 mg Capsule 500 mg PO Q12HR Qty: 6 0RF ferrous sulfate 325 mg (65 mg iron) Tablet,Delayed Release (Dr/Ec) 325 mg BYMOUTH DAILY@0800 Qty: 30 0RF atorvastatin 40 mg Tablet 40 mg PO HS 30 Days Qty: 30 0RF polyethylene glycol 3350 17 gram Powder In Packet 17 g PO DAILY Qty: 30 0RF hydroxyzine pamoate 50 mg capsule 50 mg PO Q8H PRN (Reason: anxiety ) Qty: 15 0RF Rx Instructions: end date 09/11/24 aspirin 81 mg Tablet,Delayed Release (Dr/Ec) 81 mg PO DAILY Qty: 30 0RF Rx Instructions: Patient to resume 09/18/24 pantoprazole 40 mg tablet,delayed release (DR/EC) 40 mg PO BID Qty: 60 0RF docusate sodium 100 mg Capsule 100 mg PO BID Qty: 60 0RF metoprolol succinate 25 mg Tablet Extended Release 24 Hr 25 mg PO BID Qty: 30 0RF albuterol sulfate 90 mcg/actuation Hfa Aerosol Inhaler 2 puff INHALATION Q4H PRN (Reason: Wheezing) 30 Days Qty: 1 0RF sertraline [Zoloft] 50 mg Tablet 50 mg PO QAM 30 Days Qty: 30 0RF cholecalciferol (vitamin D3) 25 mcg (1,000 unit) Tablet 25 mcg PO BID Qty: 60 0RF calcium carbonate-vitamin D3 [Calcium with Vitamin D] 600 mg-10 mcg (400 unit) Tablet 1 tablet PO BID Qty: 60 0RF melatonin 5 mg Capsule 5 mg PO QHS Qty: 30 0RF apixaban 5 mg Tablet 5 mg PO BID Qty: 60 0RF Rx Instructions: Resume on 09/18/24 cefdinir 300 mg capsule 300 mg PO Q12H Qty: 14 0RF docusate calcium 240 mg capsule 240 mg PO DAILY Qty: 30 0RF acetaminophen 500 mg capsule 1,000 mg PO Q6H PRN (Reason: pain) Qty: 20 0RF ondansetron 4 mg tablet,disintegrating 4 mg PO Q8H PRN (Reason: nausea and vomiting) Qty: 7 0RF dicyclomine 10 mg capsule 10 mg PO BID PRN (Reason: abdominal pain) Qty: 20 0RF acetaminophen 500 mg capsule 1,000 mg PO Q6H PRN (Reason: pain) Qty: 20 0RF dicyclomine 20 mg tablet 20 mg PO BID Qty: 20 0RF ondansetron 4 mg tablet,disintegrating 4 mg PO Q8H PRN (Reason: nausea and vomiting) Qty: 7 0RF acetaminophen 325 mg Tablet 650 mg PO Q4H PRN (Reason: Fever Or Pain) melatonin 3 mg Tablet 3 mg PO HS Rx Instructions: give along with 5mg at hs Follow-up/Referrals: NELLY,FRANCISCO REES [Primary Care Provider] -
--- OUTSIDE RECORDS SUMMARY | 2025-04-09 22:18 | XMS_ITS | Referral Summary ---
Author Organization [facility] Address [address] [place] [address] Phone Care Team Providers Care Visual Supervisor Name Role Phone Felicia Kuo NP Primary Care Provider Encounters Date Type Department Care Team Description 01/09/2025 Telephone [facility] Accountable Care Organization [address] [place] [id number] Iliana Dumont MA from Last 3 Months Allergies Active Allergy Reactions Criticality Noted Date Comments Ascorbic Acid Unknown 08/07/2021 Aspirin Hives Medium 01/05/2020 Hives Cefdinir Other (See comments),Unknown Low 02/04/2021 Codeine Hives,Stomach upset,Other (See comments),Rash,Vomiting Medium 01/12/2016 Hives Nitrofurantoin Nausea And Vomiting,Vomiting Low 12/29/2016 [place] Hives Medium 06/19/2020 Sulfamethoxazole Unknown 03/28/2024 Sulfamethoxazole-Trimethoprim [...] weakness 04/18/2024 Coronary artery disease invo lving [place]osh[place] coronary artery of [place] heart without angina pectoris 04/05/2024 Abdominal pain [...] (07/13/2024): Added automatically from request for surgery [id number] Abnormal vaginal bleeding 05/24/2022 Numbness and tingling 11/13/2021 Abnormal stress test 08/28/2021 Overview (07/13/2024): Last Assessment & Plan: 01/2020- We will proceed with [facility] for eval Chronic atrial fibrillation, unspecified [...] (06/07/2020): Added automatically from request for surgery [id number] JUAN (obstructive sleep apnea) 06/07/2020 Overview (06/07/2020): Added automatically from request for surgery [id number] Poor dentition 06/07/2020 Overview (06/07/2020): Added automatically from request for surgery [id number] Mixed hyperlipidemia 05/09/2019 Overview (07/13/2024): Last Assessment [...] (05/23/2018): Added automatically from request for surgery [id number] Hypertensive disorder 05/18/2018 Overview (07/13/2024): On lisinopril [...] drink = 0.6 oz pur e alcohol) [facility] Utilities Answer Date Recorded In the past 12 months has e [employer], gas, oil, or water [employer] threatened to shut off services in your [...] often do you attend chur ch or congregation services? Never 04/19/2024 Do you belong to any clubs o r organizations such as spiritism groups, unions, fraternal or athletic groups, or [...] time in the past 12 m [facility], were you homeless or living in a usp (including now)? No 04/19/2024 Personal Safety Answer Date Recorded Have you ever been in or are you currently in a harmful physical or emotional relationship or is someone making you feel afraid or unsafe? Denies 11/02/2024 Comments No Sex and Gender Information Value Date Recorded Sex Assigned at Not on file Legal Sex Female 3:21 AM HOROLOGIST APPRENTICE Gender Identity Female 08/19/2023 9:25 AM CDT Sexual Orientation Not on file Last Filed Vital Signs Vital Sign Reading Time Taken Comments Blood Pressure 108/61 11/02/2024 11:45 PM HOROLOGIST APPRENTICE Pulse 69 11/03/2024 5:00 AM HOROLOGIST APPRENTICE Temperature 36.2 C (97.2 F) 11/02/2024 8:49 PM HOROLOGIST APPRENTICE Respiratory Rate 14 11/03/2024 5:00 AM HOROLOGIST APPRENTICE Oxygen Saturation 95% 11/03/2024 5:00 AM HOROLOGIST APPRENTICE Inhaled Oxygen Concentration - - Weight 73.9 kg (163 lb) 11/02/2024 3:41 PM HOROLOGIST APPRENTICE Height 154.9 cm (5' 1) 11/02/2024 3:41 PM HOROLOGIST APPRENTICE Body Mass Index 30.8 11/02/2024 3:41 PM HOROLOGIST APPRENTICE Plan of Treatment Not on file Procedures Procedure Name Priority Date/Time Associated Diagnosis Comments EGFR STAT 11/03/2024 1:26 AM HOROLOGIST APPRENTICE HEMOGLOBIN A1C Routine 03/29/2024 7:16 AM CDT LIPID PANEL Routine 03/29/2024 7:16 AM CDT OCCULT BLOOD, FECAL (FIT) Routine 12/12/2017 8:20 AM HOROLOGIST APPRENTICE HEPATITIS PANEL, ACUTE Routine 01/11/2017 5:12 PM HOROLOGIST APPRENTICE from Last 3 Months or Most Recently Relevant to Health Maintenance Results * eGFR (11/03/2024 1:26 AM HOROLOGIST APPRENTICE) eGFR >90 >=60 mL/min/1. 73 m2 Comment: [...] last reviewed 2021. Blood 11/03/2024 1:26 AM HOROLOGIST APPRENTICE 11/03/2024 1:28 AM HOROLOGIST APPRENTICE Pat Rosas MD LAB BLOOD ORDERABLE S Final Result S[facility] [address] [facility] Department [place] [address] * Hemoglobin A1c (03/29/2024 7:16 AM CDT) Hgb A1C 5.5 4.0 - 5.6 % Estimated Average Glucose 111 mg/dL SELAM Comment: The ADA recommends reporting an estimated Average Glucose (eAG) with all Hemoglobin A1c results using the equation derived from a study of 507 normal and diabetic adults. Minority populations were underrepresented and children were not included. (Diabetes Care 31:0658-2364, 2008). The eAG is not equivalent to a fasting glucose. Blood 03/29/2024 7:16 AM CDT 03/29/2024 7:20 AM CDT Marcial Santiago MD LAB BLOOD ORDERABLES Final Result Performing Organization Address City/[facility] Co de Phone Number SELAM [address] [facility] [place] [address] * (ABNORMAL) Lipid panel (03/29/2024 7:16 AM CDT) Pathologist [facility] Cholesterol 110 30 - 199 mg/dL Comment: [...] MD LAB BLOOD ORDERABLES Final Result SELAM [address] [facility] Department [place] [address] * Occult blood, fecal non neoplasm screening (12/12/2017 8:20 AM HOROLOGIST APPRENTICE) Stool Occult Blood NEGATIVE NEGATIVE 12/12/2017 9:59 AM HOROLOGIST APPRENTICE [facility] HISTORICAL RESULTS 12/12/2017 8:20 AM HOROLOGIST APPRENTICE 12/12/2017 9:21 AM HOROLOGIST APPRENTICE Narrative [facility] HISTORICAL RESULTS - 12/12/2017 9:59 AM HOROLOGIST APPRENTICE Collected By kf Collected By kf us Edis Collado DO LAB BODY FLUIDS AND STOOLS ORDERABLES Final Result [facility] HISTORICAL RESULTS * Hepatitis panel, acute (01/11/2017 5:12 PM HOROLOGIST APPRENTICE) HepBsAg NONREACT NONREACTIVE 01/11/2017 6:12 PM HOROLOGIST APPRENTICE [facility] HISTORICAL RESULTS Comment: Siemens MobiMag[employer]urXP using JAZZY (chemiluminescent immunoassay) technology. NONREACTIVE: IgM antibodies to Hepatitis B Surface antigen not detected. REACTIVE: IgM antibodies to Hepatitis B Surface antigen detected. Reactive results will be confirmed by neutralization testing. HBsAb qn 3.41 mIU/mL 01/11/2017 6:01 PM HOROLOGIST APPRENTICE [facility] [employer] HISTORICAL RESULTS Comment: Siemens CentaurXP using JAZZY (chemiluminescent immunoassay) technology. 9.99 IU/L or less.....NONREACTIVE: IgM antibodies to Hepatitis B Surface antibody are not detected. 10.00 IU/L or greater..REACTIVE: IgM antibodies to Hepatitis B Surface antibody are detected. Hep B core IgM NONREACT NONREACTIVE 7 6:40 PM HOROLOGIST APPRENTICE [facility] HISTORICAL RESULTS Comment: Siemens CentaurXP using JAZZY (chemiluminescent immunoassay) technology. NONREACTIVE: IgM antibodies to Hepatitis B Core antigen not detected. EQUIVOCAL: IgM antibodies to Hepatitis B Core antigen may or may not be present. Obtain a new specimen and retest. REACTIVE: IgM antibodies to Hepatitis B Core antigen detected. Hep A IgM NONREACT NONREACTIVE 01/11/2017 6:42 PM HOROLOGIST APPRENTICE [facility] HISTORICAL RESULTS Comment: Siemens CentaurXP using JAZZY (chemiluminescent immunoassay) technology. NONREACTIVE: IgM antibodies to Hepatitis A not detected. This does not exclude possibility of exposure to Hepatitis A or early acute infection. EQUIVOCAL:IgM antibodies to Hepatitis A may or may not be present. Suggest recollection and retest. REACTIVE: Antibodies to Hepatitis A detected. Hep C Ab NONREACT NONREACTIVE 01/11/2017 6:40 PM HOROLOGIST APPRENTICE [facility] HISTORICAL RESULTS Comment: Siemens CentaurXP using JAZZY [...] to Hepatitis C detected. 01/11/2017 5:12 PM HOROLOGIST APPRENTICE 01/11/2017 5:19 PM HOROLOGIST APPRENTICE Wenceslao Arceo MD LAB MICROBIOLOGY - GENERAL MARKY REYES Final Result Performing Organization Address City/State/[facility] Co de Phone Number [facility] HISTORICAL RESULTS from Last 3 Months or Most Recently Relevant to Health Maintenance Insurance [facility] Address: [address] [address] [place] [address] Advance Directives For more information, please contact: [phone] Documents on File Type Date Recorded Patient Enterostomal Therapy Nurse Expl anation ADVANCE DIRECTIVE 11/03/2024 5:22 AM POLS T - Phys Order for PT Preferences ADVANCE DIRECTIVE 03/30/2024 3:29 PM Power of Heat Curer-Medical * Full Code (Latest Code Status on File) Date Activated Date Inactivated Comments 04/18/2024 9:24 PM 04/25/2024 5:04 PM * Full Code Date Activated Date Inactivated Comments 03/28/2024 11:18 PM 04/08/2024 2:14 AM Care Teams Visual Supervisor Relationship Specialty Start Date End Date Felicia Kuo NP [address] [place] [address] PCP - General Nurse Practitioner 07/28/23
--- OUTSIDE RECORDS SUMMARY | 2025-04-09 22:18 | XMS_ITS | Encounter Summary ---
Author Organization [facility] Address [address] [place] [address] Care Team Providers Care Semi Conductor Assembler Name Role Phone [facility] Jesusita Felicia Wu APRN-ROTARY DRIER OPERATOR Primary Care Provider [phone] Reason for Visit * Reason Onset Date Comments Future Appointment 04/13/2023 Encounter Details Date Type Department Care Team (Late st Contact Info) Description 04/13/2023 Telephone [facility] - STEAM PLANT RECORDS CLERK [address] [place] [address] Rodolfo Patel MD [address] [place] [address] Future Appointment Social History Tobacco [...] wanting have a female doctor. PT CB# [phone] documented in this encounter Plan of Treatment Not on file documented as of this encounter Visit Diagnoses Not on filedocumented in this encounter Care Teams Semi Conductor Assembler Relationship Specialty Start Date End Date Felicia Kuo APRN-MONTSERRAT [address] [place] [address] PCP - General 06/17/21 [place], [place] [address] 12/02/17 documented as of this encounter
--- OUTSIDE RECORDS SUMMARY | 2025-04-09 22:18 | XMS_ITS ---
Author Organization [facility] Care Team Providers Care Reclamation Worker Name Role Phone Naif Goncalves Unavailable Unavailable Allergies and adverse reactions Code CodeSystem Substance Reaction Severity StartDate Concern Status 09374 RXNORM Sulfamethoxazole Unknown 03/28/20[address] [place] Unknown 03/28/2024 active 7454 RXNORM Nitrofurantoin Unknown 03/28/2024 active 2670 RXNORM Codeine Unknown 03/28/2024 active 00174 RXNORM Cefdinir Unknown 03/28/2024 active Care Team Name Role Address Phone Organization Barron Goncalves PCP [address] [place] [address], [place], [place], [facility], [facility] (Office): : [facility] 03/28/2024 - 03/28/2024 Problems Problem # Description Date of onset Resolved Date Code CodeSystem Concern Status 1 ANEMIA IN OTHER CHRONIC DISEASES CLASSIFIED ELSEWHERE 03/28/[address] active 2 ANXIETY DISORDER, UNSPECIFIED 03/28/[address] active 3 UPTON'S PALSY 03/28/[address] acti ve 4 CEREBRAL INFARCTION DUE TO EMBOLISM OF RIGHT MIDDLE CEREBRAL ARTERY 03/28/[address] active 5 CHRONIC ATRIAL FIBRILLATION, UNSPECIFIED 03/28/[address] active 6 DEPRESSION, UNSPECIFIED 03/28/[address] active 7 DIABETES MELLITUS DUE TO UNDERLYING CONDITION WITH HYPERGLYCEMIA 03/28/[address] active 8 DIFFICULTY IN WALKING, NOT ELSEWHERE CLASSIFIED 03/28/[address] active 9 ESSENTIAL (PRIMARY) HYPERTENSION 03/28/[address] active 10 GASTRO-ESOPHAGEAL REFLUX DISEASE WITHOUT ESOPHAGITIS 03/28/[address] active 11 GENERALIZED ANXIETY DISORDER 03/28/[address] active 12 HEMIPLEGIA AND HEMIPARESIS FOLLOWING CEREBRAL INFARCTION AFFECTING UNSPECIFIED SIDE 03/28/[address] active 13 HYPERLIPIDEMIA, UNSPECIFIED 03/28/[address] active 14 HYPOKALEMIA 03/28/[address] active 15 INSOMNIA, UNSPECIFIED 03/28/[address] active 16 NAUSEA 03/28/[address] active 17 PAIN IN UNSPECIFIED JOINT 03/28/[address] active 18 PERSONAL HISTORY OF COVID-19 03/28/[address] active 19 UNSPECIFIED COMBINED SYSTOLIC (CONGESTIVE) AND DIASTOLIC (CONGESTIVE) HEART FAILURE 03/28/[address] active 20 VITAMIN B12 DEFICIENCY ANEMIA, UNSPECIFIED 03/28/[address] active 21 WEAKNESS 03/28/[address] active Reason for Referral No Reasons for Referral Entered Social History Social History Observation Description Start Date End Date Code Code System Current Smoking Status Tobacco smoking consumption unknown 205075242 SNOMED CT Sex Assigned At Female 1960 57242-8 LOINC Gender Identity Female 05255247766986 [address] Vital Signs Code Code System Vitals Name Values and Units Timing Information 12317-7 LOINC Pain Level Value=0.0 03/28/2024 9279-1 LOINC Respiratory Rate Value=18.0 Units=/m in 03/28/2024 8462-4 [facility] Blood Pressure-Diastolic Value=74 Un its=mmHg 03/28/2024 8480-6 [facility] Blood Pressure-Systolic Wzwln=775 Un its=mmHg 03/28/2024 8310-5 [facility] Body Temperature Value=97.8 Units= F 03/28/2024 8867-4 [facility] Heart rate Value=74.0 Units=/min 8302-2 [facility] Height Value=60.0 Units=Inches 03/28/2024 52829-7 [facility] O2 % BldC Oximetry Value=95.0 Units= % 03/28/2024
--- OUTSIDE RECORDS SUMMARY | 2025-04-09 22:18 | XMS_ITS | Clinical Summary ---
Author Organization [facility] [employer] Address [address] [place] [address] Care Team Providers Care Fmd Teacher Name Role Phone [facility] Felicia Yi APRN-COMMUNICATIONS DEPARTMENT CHAIR Primary Care Provider [phone] Source Comments [facility],non-owned Affiliates and Associated Physician Practices is amultiple site organization consisting of ambulatory clinics and hospital sitesin [place], [place], [place] and [place]. This disclosure is being madepursuant to the Care Everywhere program and may not contain all information available regarding this patient. Last updated 18.[facility] Allergies Active Allergy Reactions Criticality Noted Date [...] mouth once daily 4 Active nystatin (Mycostatin) 366351 UNIT/GM powder Apply to affected area 3 [...] Recorded Patient Health Questionnaire-2 Score 2 12/16/2023 [facility] - Occupational Stress Questionnaire Answer Date [...] any time in the past 12 m [facility], were you homeless or living in a detention (including now)? No 10/04/2024 Comments No Sex and Gender Information Value Date Recorded Sex Assigned at Not on file Legal Sex Female 5:00 PM CDT Gender Identity Not on file Sexual Orientation Not on file Last Filed Vital Signs Vital Sign Reading Time Taken Comments Blood Pressure 117/71 10/23/2024 11:38 AM SCIENTIFIC SPECIALIST Pulse 62 10/23/2024 11:38 AM SCIENTIFIC SPECIALIST Temperature 36.4 C (97.5 F) 10/23/2024 11:38 AM SCIENTIFIC SPECIALIST Respiratory Rate 16 10/23/2024 11:3 8 AM SCIENTIFIC SPECIALIST Oxygen Saturation 100% 10/23/2024 11: 38 AM SCIENTIFIC SPECIALIST Inhaled Oxygen Concentration 35% 12/09/2023 8 :27 AM SCIENTIFIC SPECIALIST Weight 72.5 kg (159 lb 12.8 oz) 10/23/2024 4:00 AM SCIENTIFIC SPECIALIST Height 167.6 cm (5' 5.98) 10/04/2024 8:26 PM CS T Body Mass Index 25.8 10/04/2024 8:26 PM SCIENTIFIC SPECIALIST Plan of Treatment Health Maintenance Due Date [...] this topic Medical Devices Implanted Type Area Agronomy Specialist Device Identifier Shelf Expiration Date Model / Serial / Lot DepSemEquip Synthes Synthecel [employer] Ref# [id number] Implanted:Qty: 1 on 11/28/2023 by Dafne Hernandez MD at [facility] Right: Cranial 11/07/2025 [id number] / N/A / [id number] Procedures Procedure Name Priority Date/Time Associated Diagnosis Comments COMPREHENSIVE METABOLIC PANEL Routine 10/15/2024 8:43 PM SCIENTIFIC SPECIALIST HEMOGLOBIN A1C Add on 11/24/2023 12:20 AM SCIENTIFIC SPECIALIST from Last 3 Months or Most Recently Relevant to Health Maintenance Results * (ABNORMAL) COMPREHENSIVE METABOLIC PANEL (10/15/2024 8:43 PM SCIENTIFIC SPECIALIST) BUN 17 7 - 26 mg/dL 10/15/2024 9:38 PM SCIENTIFIC SPECIALIST [facility] Creatinine 0.57 0.56 - 0.96 mg/dL 10/15/2024 9:38 PM SCIENTIFIC SPECIALIST [facility] Sodium 143 136 - 145 mmol/L 10/15/2024 9:38 PM SCIENTIFIC SPECIALIST [facility] Potassium 3.6 3.5 - 4.5 mmol/L 10/15/2024 9:38 PM [facility] Chloride 111(H) 98 - 107 mmol/L 10/15/2024 9:38 PM [facility] CO2 24 22 - 29 mmol/L 10/15/2024 9:38 PM [facility] Glucose 160(H) 70 - 99 mg/dL 10/15/2024 9:38 PM [facility] Calcium 9.0 8.4 - 10.2 mg/dL 10/15/2024 9:38 PM [facility] Protein Total 6.1 6.0 - 8.3 g/dL 10/15/2024 9:38 PM [facility] Albumin 3.1(L) 3.4 - 5.0 g/dL 10/15/2024 9:38 PM [facility] Bilirubin Total 0.2 0.2 - 1.2 mg/dL 10/15/2024 9:38 PM [facility] Alkaline Phosphatase 123 40 - 150 U/L 10/15/2024 9:38 PM [facility] ALT 56(H) 5 - 55 U/L 10/15/2024 9:38 PM [facility] AST 43(H) 5 - 34 U/L 10/15/2024 9:38 PM [facility] Anion Gap 8 6 - 16 10/15/2024 9:38 PM [facility] BUN/Creatinine Ratio 30(H) 7 - 23 10/15/2024 9:38 PM [facility] Osmolality Calculated 301(H) 275 - 295 mOsm/kg 10/15/2024 9:38 PM [facility] Albumin/Globulin Ratio 1.0(L) 1.1 - 2.3 10/15/2024 9:38 PM [facility] eGFR by CKD-EPI >90 >=90 mL/min/1.7 3 m2 10/15/2024 9:38 PM [facility] Blood BLOOD SPECIMEN / Unknown Lab Venipuncture / Unknown 10/15/2024 8:43 PM SCIENTIFIC SPECIALIST 10/15/2024 9:10 PM SCIENTIFIC SPECIALIST us Radha Bhat DO LAB - CHEMISTRY ORDERABLES Fin al Result [facility] [address] [place] [address], [facility] [phone] * HEMOGLOBIN A1C (11/24/2023 12:20 AM [facility]) Hemoglobin A1c 4.9 <=5.6 % 11/24/2023 10:00 AM [facility] Estimated Average Glucose 94 mg/dL 11/24/2023 10:00 AM [facility] Comment: HbA1c Interpretation: Normal : < 5.7% Pre-diabetes: 5.7-6.4% Diabetes: Equal to or greater than 6.5% Test results diagnostic of diabetes should be repeated for confirmation. Treatment target values recommended by ADA and other clinical organizations should be used to evaluate metabolic control in patients. Reference: [place] Diabetes Association, Standards of Care in Diabetes -2020 In patients 70 years and older consider HbA1c target range of 7.0-7.5% (Reference: Chencho Perez et al. JAMDA. 2012) The Sebia assay for the measurement of HbA1c is a National Glycohemoglobin Standardization Program (NGSP) certified method. Blood BLOOD SPECIMEN / Unknown Venipuncture / Unknown 11/24/2023 12:20 AM SCIENTIFIC SPECIALIST 11/24/2023 12:31 AM [facility] Russell Alvarado MD LAB - CHEMISTRY ORDERABLES Fi nal Result Performing Organization Address [facility] Co de Phone Number [facility] [address] [place] [address], [facility] [phone] from Last 3 Months or Most Recently Relevant to Health Maintenance Insurance [facility] MANAGED MEDICARE ADV Advance Directives Documents on File Type Date Recorded Patient Steel Rule Die Maker Expl anation Adv Directive/Living Will/POA 10/30/2024 11:47 AM Adv Directive/Living Will/POA 10/11/2024 10:41 AM * Full Code (Latest Code Status on File) Date Activated Date Inactivated Comments 10/03/2024 8:01 PM 10/23/2024 5:59 PM * Full Code Date Activated Date Inactivated Comments 11/23/2023 8:24 PM 12/19/2023 2:28 PM Care Teams Fmd Teacher Relationship Specialty Start Date End Date Felicia Kuo APRN-CNP [address] [place] [address] PCP - General 06/17/21 [place], [place] [address] 12/02/17
--- OUTSIDE RECORDS SUMMARY | 2025-04-09 22:18 | XMS_ITS | CONTINUITY OF CARE DOCUMENT ---
Author Name mariusz vee Address Unknown Organization [facility] Address [address] [place] [address] Phone [phone] Care Team Providers Care Ballet Teacher Name Role Phone Oneida Hardwick MD Unavailable RYAN CLARK MD Unavailable [phone] RYAN CLARK MD Unavailable [phone] INSURANCE PROVIDERS Payer name Policy type / Coverage type [place] red [employer] party ID [place] [employer] Medicaid [id number] [place] [employer] Medicare [id number]
--- OUTSIDE RECORDS SUMMARY | 2025-04-09 22:18 | XMS_ITS | Clinical Summary ---
Author Organization [facility] Address [address] [place] [address] Phone Care Team Providers Care Cleaning Crew Member Name Role Phone Felicia Kuo NP Primary Care Provider + [phone] Allergies Active Allergy Reactions Criticality Noted Date Comments Ascorbic Acid Unknown 08/07/2021 Aspirin Hives Medium 01/05/2020 Hives Cefdinir Other (See comments),Unknown Low 02/04/2021 Codeine Hives,Stomach upset,Other (See comments),Rash,Vomiting Medium 01/12/2016 Hives Nitrofurantoin Nausea And Vomiting,Vomiting Low 12/29/2016 [place] Hives Medium 06/19/2020 Sulfamethoxazole Unknown 03/28/2024 Sulfamethoxazole-Trimethoprim [...] weakness 04/18/2024 Coronary artery disease invo lving [place] coronary artery of [place] heart without angina pectoris 04/05/2024 Abdominal [...] (07/13/2024): Added automatically from request for surgery [id number] Abnormal vaginal bleeding 05/24/2022 Numbness and tingling 11/13/2021 Abnormal stress test 08/28/2021 Overview (07/13/2024): Last Assessment & Plan: 01/2020- We will proceed with [facility] for eval Chronic atrial fibrillation, unspecified [...] (06/07/2020): Added automatically from request for surgery [id number] JUAN (obstructive sleep apnea) 06/07/2020 Overview (06/07/2020): Added automatically from request for surgery [id number] Poor dentition 06/07/2020 Overview (06/07/2020): Added automatically from request for surgery [id number] Mixed hyperlipidemia 05/09/2019 Overview (07/13/2024): Last Assessment [...] (05/23/2018): Added automatically from request for surgery [id number] Hypertensive disorder 05/18/2018 Overview (07/13/2024): On lisinopril [...] Type Department Care Team Description 01/09/2025 Telephone [facility] Accountable Care Organization [address] [place] [address] Iliana Dumont MA from Last 3 [...] drink = 0.6 oz pur e alcohol) [facility] Utilities Answer Date Recorded In the past 12 months has e electric, gas, oil, or water [employer] threatened to shut off services in your [...] any clubs o r organizations such as zoroastrian groups, unions, fraternal or athletic groups, or [...] any time in the past 12 m [facility], were you homeless or living in a nursing home (including now)? No 04/19/2024 Personal Safety Answer Date Recorded Have you ever been in or are you currently in a harmful physical or emotional relationship or is someone making you feel afraid or unsafe? Denies 11/02/2024 Comments No Sex and Gender Information Value Date Recorded Sex Assigned at Not on file Legal Sex Female 3:21 AM STAFFING ACCOUNT MANAGER Gender Identity Female 08/19/2023 9:25 AM CDT [...] Comments Blood Pressure 108/61 11/02/2024 11:45 PM STAFFING ACCOUNT MANAGER Pulse 69 11/03/2024 5:00 AM STAFFING ACCOUNT MANAGER Temperature 36.2 C (97.2 F) 11/02/2024 8:49 PM STAFFING ACCOUNT MANAGER Respiratory Rate 14 11/03/2024 5:00 AM STAFFING ACCOUNT MANAGER Oxygen Saturation 95% 11/03/2024 5:00 AM STAFFING ACCOUNT MANAGER Inhaled Oxygen Concentration - - Weight 73.9 kg (163 lb) 11/02/2024 3:41 PM STAFFING ACCOUNT MANAGER Height 154.9 cm (5' 1) 11/02/2024 3:41 PM STAFFING ACCOUNT MANAGER Body Mass Index 30.8 11/02/2024 3:41 PM STAFFING ACCOUNT MANAGER Plan of Treatment Health Maintenance Due Date [...] Diagnosis Comments EGFR STAT 11/03/2024 1:26 AM STAFFING ACCOUNT MANAGER HEMOGLOBIN A1C Routine 03/29/2024 7:16 AM CDT LIPID PANEL Routine 03/29/2024 7:16 AM CDT OCCULT BLOOD, FECAL (FIT) Routine 12/12/2017 8:20 AM STAFFING ACCOUNT MANAGER HEPATITIS PANEL, ACUTE Routine 01/11/2017 5:12 PM STAFFING ACCOUNT MANAGER from Last 3 Months or Most Recently Relevant to Health Maintenance Results * eGFR (11/03/2024 1:26 AM STAFFING ACCOUNT MANAGER) eGFR >90 >=60 mL/min/1. 73 m2 Comment: [...] last reviewed 2021. Blood 11/03/2024 1:26 AM STAFFING ACCOUNT MANAGER 11/03/2024 1:28 AM STAFFING ACCOUNT MANAGER us Pat Rosas MD LAB BLOOD ORDERABLE S Final Result Performing Organization Address City/[facility]/ZIP Co de Phone Number [facility] ([facility]) [address] [facility] Department [place] [address] * Hemoglobin A1c (03/29/2024 7:16 AM CDT) Hgb A1C 5.5 4.0 - 5.6 % Estimated Average Glucose 111 mg/dL [facility] Comment: The ADA recommends reporting an estimated Average Glucose (eAG) with all Hemoglobin A1c results using the equation derived from a study of 507 normal and diabetic adults. Minority populations were underrepresented and children were not included. (Diabetes Care 31:7792-4523, 2008). The eAG is not equivalent to a fasting glucose. Blood 03/29/2024 7:16 AM CDT 03/29/2024 7:20 AM CDT us Marcial Santiago MD LAB BLOOD ORDERABLES Final Result Performing Organization Address City/[facility]/ZIP Co de Phone Number [facility]EL[facility] [address] [facility] [place] [address] * (ABNORMAL) Lipid panel (03/29/2024 7:16 AM [...] LAB BLOOD ORDERABLES Final Result [facility] [address] [facility] Department [place] [address] * Occult blood, fecal non neoplasm screening (12/12/2017 8:20 AM STAFFING ACCOUNT MANAGER) Stool Occult Blood NEGATIVE NEGATIVE 12/12/2017 9:59 AM STAFFING ACCOUNT MANAGER [facility] HISTORICAL RESULTS 12/12/2017 8:20 AM STAFFING ACCOUNT MANAGER 12/12/2017 9:21 AM STAFFING ACCOUNT MANAGER Narrative [facility] HISTORICAL RESULTS - 12/12/2017 9:59 AM STAFFING ACCOUNT MANAGER Collected By kf Collected By kf us Edis Collado DO LAB BODY FLUIDS AND STOOLS ORDERABLES Final Result Performing Organization Address City/[facility] Co de Phone Number [facility] HISTORICAL RESULTS * Hepatitis panel, acute (01/11/2017 5:12 PM STAFFING ACCOUNT MANAGER) HepBsAg NONREACT NONREACTIVE 01/11/2017 6:12 PM STAFFING ACCOUNT MANAGER [facility] HISTORICAL RESULTS Comment: Siemens CentaurXP using JAZZY (chemiluminescent immunoassay) technology. NONREACTIVE: IgM antibodies to Hepatitis B Surface antigen not detected. REACTIVE: IgM antibodies to Hepatitis B Surface antigen detected. Reactive results will be confirmed by neutralization testing. HBsAb qn 3.41 mIU/mL 01/11/2017 6:01 PM STAFFING ACCOUNT MANAGER [facility] HISTORICAL RESULTS Comment: Siemens CentaurXP using JAZZY (chemiluminescent immunoassay) technology. 9.99 IU/L or less.....NONREACTIVE: IgM antibodies to Hepatitis B Surface antibody are not detected. 10.00 IU/L or greater..REACTIVE: IgM antibodies to Hepatitis B Surface antibody are detected. Hep B core IgM NONREACT NONREACTIVE 7 6:40 PM STAFFING ACCOUNT MANAGER [facility] HISTORICAL RESULTS Comment: Siemens CentaurXP using JAZZY (chemiluminescent immunoassay) technology. NONREACTIVE: IgM antibodies to Hepatitis B Core antigen not detected. EQUIVOCAL: IgM antibodies to Hepatitis B Core antigen may or may not be present. Obtain a new specimen and retest. REACTIVE: IgM antibodies to Hepatitis B Core antigen detected. Hep A IgM NONREACT NONREACTIVE 01/11/2017 6:42 PM STAFFING ACCOUNT MANAGER [facility] HISTORICAL RESULTS Comment: Siemens CentaurXP using JAZZY (chemiluminescent immunoassay) technology. NONREACTIVE: IgM antibodies to Hepatitis A not detected. This does not exclude possibility of exposure to Hepatitis A or early acute infection. EQUIVOCAL:IgM antibodies to Hepatitis A may or may not be present. Suggest recollection and retest. REACTIVE: Antibodies to Hepatitis A detected. Hep C Ab NONREACT NONREACTIVE 01/11/2017 6:40 PM STAFFING ACCOUNT MANAGER [facility] HISTORICAL RESULTS Comment: Siemens CentaurXP using JAZZY [...] to Hepatitis C detected. 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
--- OUTSIDE RECORDS SUMMARY | 2025-04-09 22:18 | XMS_ITS | Clinical Summary ---
Author Organization [facility] Address [address] [place] [address] Phone Care Team Providers Care Sausage Smoker Name Role Phone Renetta Ford MD Primary Care Provider [phone] Allergies Active Allergy Reactions Criticality Noted Date [...] Comments Blood Pressure 107/64 12/30/2018 9:[address]ER Pulse 101 12/30/2018 9:[address]ER Temperature 37.3 C (99.1 F) 12/30/2018 7:[address]ER Respiratory Rate 18 12/30/2018 9:[address]ER Oxygen Saturation 94% 12/30/2018 9:[address]ER Inhaled Oxygen Concentration - - Weight 90.7 kg (200 lb) 12/30/2018 7:[address]IN[address]ER Height 157.5 cm (5' 2) 12/30/2018 7:[address]IN[address]ER Body Mass Index 36.58 12/30/2018 7:[address] MAIN[address]ER Plan of Treatment Health Maintenance Due Date [...] age to complete this topic Insurance [address] [place] [id number] MEDICAID [employer] [facility] [employer] Care Teams Sausage Smoker Relationship Specialty Start Date End Date Renetta Ford MD [address] [place] [address] PCP - General Geriatric Medicine 12/30/18
--- OUTSIDE RECORDS SUMMARY | 2025-04-09 22:18 | XMS_ITS ---
Author Organization [facility] Address [address] [place] [address] Phone Care Team Providers Care Combine Mechanic Name Role Phone Felicia Kuo NP Primary Care Provider [phone] Active Problems Problem Noted Date Diagnosed Date [...] weakness 04/18/2024 Coronary artery disease invo lving [place] coronary artery of [place] heart without angina pectoris 04/05/2024 Abdominal pain [...] (07/13/2024): Added automatically from request for surgery [id number] Abnormal vaginal bleeding 05/24/2022 Numbness and tingling 11/13/2021 Abnormal stress test 08/28/2021 Overview (07/13/2024): Last Assessment & Plan: 01/2020- We will proceed with [facility] for eval Chronic atrial fibrillation, unspecified [...] (06/07/2020): Added automatically from request for surgery [id number] JUAN (obstructive sleep apnea) 06/07/2020 Overview (06/07/2020): Added automatically from request for surgery [id number] Poor dentition 06/07/2020 Overview (06/07/2020): Added automatically from request for surgery [id number] Mixed hyperlipidemia 05/09/2019 Overview (07/13/2024): Last Assessment [...] (05/23/2018): Added automatically from request for surgery [id number] Hypertensive disorder 05/18/2018 Overview (07/13/2024): On lisinopril [...]
[2025-04-09 23:46] VITALS: BP 118/58; PULSE 76; RESP 19; O2SAT 97
[2025-04-10 00:01] LABS: Influenza A QL RT-PCR Negative (Negative); Influenza B QL RT-PCR Negative (Negative); RSV RNA, RT-PCR Negative (Negative); SARS-CoV-2 RNA PCR Negative (Negative)
[2025-04-10 00:10] LABS: Amphetamine Screen Urine Negative (Negative); Barbiturate Screen Urine Positive (Negative); Benzodiazepines Screen Urine Positive (Negative); Cannabinoid Screen Urine Negative (Negative); Cocaine Screen Urine Negative (Negative); Methadone Screen Urine Negative (Negative); Opiate Screen Urine Negative (Negative); Phencyclidine Screen Urine Negative (Negative)
[2025-04-10 00:20] LABS: Basophils Percent Auto 0.2 % (0.2-1.2); Eosinophils Percent Auto 0.2 % (0-4.4); Hematocrit 38.5 % (37.0-47.0); Hemoglobin 12.4 g/dL (12.0-15.0); Immature Granulocyte Absolute 0.03 K/mm3 (0.00-0.031); Immature Granulocyte Percent A 0.3 % (0-0.5); Lymphocytes Absolute Auto 1.13 K/mm3 (0.9-3.2); Lymphocytes Percent Auto 12.6 % (18.3-44.2); Mean Corpuscular HGB Conc 32.2 g/dl (32-36); Mean Corpuscular Hemoglobin 29.3 pg (26-34); Monocytes Absolute Auto 0.6 K/mm3 (0.1-0.6); Monocytes Percent Auto 6.8 % (2.6-8.5); Neutrophils Absolute Auto 7.2 K/mm3 (1.3-6.7); Neutrophils Percent Auto 79.9 % (45.5-73.1); Platelet Count Result 213 k/mm3 (150-375); Red Blood Count 4.23 M/mm3 (4.2-5.4); Red Cell Distribution Width 13.3 % (11.5-14.5)
[2025-04-10 00:22] LABS: Add Urine Microscopic? YES; Appearance Urine Clear (Clear); Bacteria Urine 4+ /hpf; Bilirubin Urine Negative (Negative); Blood Urine Negative (Negative); Color Urine Dark Yellow (Yellow); Glucose Urine UA Negative (Negative); Ketones Urine Trace mg/dL (Negative); Leukocyte Esterase Ur Trace LEU/UL (Negative); Need Manual Microscopic Reviewed; Nitrate Urine Positive (Negative); Non Pathogenic Casts >20; Protein Urine Trace mg/dL (Negative); RBC Urine 0-2 /hpf (0-2); Specific Grav Ur 1.026 (1.001-1.035); Squamous Epithelial Cell Urine None Seen /hpf (Few); WBC Urine 0-5 /hpf (0-3)
[2025-04-10] MEDS: MECLIZINE HCL 25 MG TABLET PO (00:29)
[2025-04-10 00:32] LABS: Alanine Aminotransferase 13 U/L (6-35); Albumin Level 3.9 g/dL (3.5-5.1); Alkaline Phosphatase 73 U/L (38-126); Anion Gap 7 mmol/L (4-12); Aspartate Amino Transferase 26 U/L (14-36); Bilirubin,Total 0.6 mg/dL (0.2-1.3); Blood Urea Nitrogen 20 mg/dL (7-17); Calcium 9.7 mg/dL (8.4-10.2); Carbon Dioxide 28 mmol/L (22-30); Chloride 104 mmol/L (98-107); Estimated CRCL calculation 78 ml/min; Estimated Glomerular Filt Rate > 60; Glucose 124 mg/dL (65-110); Lipase 50 U/L (23-300); Potassium 3.9 mmol/L (3.4-5.0); Sodium 139 mmol/L (137-145)
[2025-04-10 00:40] LABS: INR 1.6; Prothrombin Time 19.4 Seconds (11.1-14.7)
[2025-04-10 00:41] LABS: Partial Thromboplastin Time 29.9 Seconds (22.3-36.8)
[2025-04-10] MEDS: ONDANSETRON INJ 4 MG/2 ML VIAL IV PUSH (01:02)
[2025-04-10] MEDS: HUMAN PROTHROMBIN COMPLEX(PCC) 2,000 UNITS in PREMIXIV 0 ML 496.8 UNITS IV CONT (01:07)
[2025-04-10 02:03] VITALS: BP 108/61; PULSE 69; RESP 17; O2SAT 97
[2025-04-10] MEDS: SODIUM CHLORIDE 0.9% IV 500 ML 999 ML IV CONT (02:14)
--- NOTE | 2025-04-10 02:25 | PC.NURSE ---
Pt son, Fernandez, given update that patient has left to go to [employer].
== END 2025-04-10 02:25 | disposition short-term general hospital (02) ==
PROVIDERS: Emergency Provider Student in an Organized Health Care Education/Training Program; PCP Nurse Practitioner Family
DX: J32.3 Chronic sphenoidal sinusitis (principal); R42 Dizziness and giddiness; R11.0 Nausea; E04.1 Nontoxic single thyroid nodule; K52.9 Noninfective gastroenteritis and colitis, unspecified; I61.9 Nontraumatic intracerebral hemorrhage, unspecified; R82.998 Other abnormal findings in urine; Z20.822 Contact with and (suspected) exposure to COVID-19; Z79.01 Long term (current) use of anticoagulants; I48.91 Unspecified atrial fibrillation; F41.9 Anxiety disorder, unspecified; F32.A Depression, unspecified; E78.5 Hyperlipidemia, unspecified; K21.9 Gastro-esophageal reflux disease without esophagitis; I11.0 Hypertensive heart disease with heart failure; I50.9 Heart failure, unspecified; E11.9 Type 2 diabetes mellitus without complications; I69.954 Hemiplegia and hemiparesis following unspecified cerebrovascular disease affecting left non-dominant side; I25.10 Atherosclerotic heart disease of native coronary artery without angina pectoris
CPT/HCPCS: 36415; 70450; 72125; 74176; 80053; 80307; 81001; 83690; 85025; 85610; 85730; 87086; 87186; 87637; 93005; 96361; 96365; 96375; 99285; A9270; J2405; J7040; J7168